=== PATIENT | male | born 1930 | race Caucasian/White ===

== ENCOUNTER → 2017-09-08 | Outpatient (CLI) | payer MEDICARE, OTHER ==
[~2017-09-08] MED LIST: ALBUTEROL0.63 MG/3 PO; AMANTADINE100 MG PO; ASPIR 8181 MG PO; ATORVASTATIN CA10 MG PO; CALCIUM 500+D1 EACH PO; CARDURA4 MG PO; COMTAN200 MG PO; COUMADIN1 MG PO; FUROSEMIDE40 MG PO; K DUR10 MEQ PO; LASIX40 MG PO; LISINOPRIL10 MG PO; NITROGLYCERIN0.4 MG SL; NORCO 5-325 TA1 EACH PO; OXYBUTYNIN CHLOR5 MG PO; PLAVIX75 MG PO; POTASSIUM CHLO10 ME1 PO; SINEMET 25-1001 EACH PO; TAMSULOSIN HCL0.4 MG PO; VIAGRA100 MG PO; WARFARIN SODIUM1 MG PO; XARELTO20 MG PO
--- NOTE | 2017-09-08 15:24 | Diagnostic Imaging Report ---
PROCEDURE:HIP LEFT 2-3 VW (+/- PELVIS) COMPARISON:CT abdomen and pelvis 05/04/2017 INDICATIONS:LEFT HIP PAIN FINDINGS: Normal mineralization. No acute fracture or dislocation. Mild degenerative changes of the left hip and pubic symphysis. Diffuse vascular calcifications. CONCLUSION: Mild degenerative changes of the left hip. No acute osseous abnormalities. Dictated by: Brannon Shay M.D. on 09/08/2017 at 15:33 Electronically approved by: Brannon Shay M.D. on 09/08/2017 at 15:33
== END ==
LOC: RAD 14:03
DX: M25.552 Pain in left hip (principal)

== ENCOUNTER 2018-02-19 00:01 | Emergency (ER) | payer MEDICARE, OTHER ==
[~2018-02-19] VITALS: Ht 175.3 cm; Wt 75.7 kg
== END 2018-02-19 00:38 | disposition home or self-care (01) ==
LOC: ER 00:01
DX: R13.14 Dysphagia, pharyngoesophageal phase (principal); I10 Essential (primary) hypertension; I25.10 Atherosclerotic heart disease of native coronary artery without angina pectoris; J44.9 Chronic obstructive pulmonary disease, unspecified; I50.9 Heart failure, unspecified; Z86.73 Personal history of transient ischemic attack (TIA), and cerebral infarction without residual deficits
CPT/HCPCS: 99282

== ENCOUNTER → 2018-02-24 | Outpatient (CLI) | payer MEDICARE, OTHER ==
--- NOTE | 2018-02-24 13:37 | Diagnostic Imaging Report ---
PROCEDURE: CT ABDOMEN AND PELVIS WITHOUT CONTRAST TECHNIQUE: The abdomen and pelvis were scanned utilizing a multidetector helical scanner from the diaphragm to the lesser trochanter after the oral administration of 450 ml of water. Coronal and sagittal multiplanar reformations were obtained. COMPARISON: CT of the abdomen and pelvis from 05/04/2017 INDICATIONS: MICROSCOPIC HEMATURIA FINDINGS: ABSENCE OF INTRAVENOUS CONTRAST DECREASES SENSITIVITY FOR DETECTION OF FOCAL LESIONS AND VASCULAR PATHOLOGY. LOWER THORAX: Subpleural reticular opacities with interlobular septal thickening and bronchial wall thickening, more conspicuous on the prior examination. There is cardiomegaly with severe coronary artery and aortic root calcifications. HEPATOBILIARY: There are scattered granulomas throughout the liver. No focal suspicious hepatic lesions. The gallbladder is absent. The common bile duct measures up to 0.9 cm, unchanged. SPLEEN: No splenomegaly. Healed granulomas in the spleen. PANCREAS: No focal masses or ductal dilatation. ADRENALS: No adrenal nodules. KIDNEYS/URETERS: No hydronephrosis or solid mass lesions. 3 mm nonobstructing stone in the upper pole of the right kidney (series 3, image 37), 4 mm nonobstructing stone in the lower pole right kidney (image 61) and a 3 mm nonobstructing stone in the upper pole the left kidney (image 32). There appears to be a 6 mm stone in the left distal ureter (series 3, image 108). There is no associated hydronephrosis or hydroureter. PELVIC ORGANS/BLADDER: The prostate gland is mildly enlarged, measuring 5.2 x 3.6 x 5.5 cm. PERITONEUM / RETROPERITONEUM: No free air or fluid. LYMPH NODES: No lymphadenopathy. VESSELS: Moderate atherosclerotic calcification of the aorta and its branches. GI TRACT: No distention or wall thickening. There is a large amount of stool throughout the colon with fecalization of contents in the distal ileum. The appendix is normal. BONES AND SOFT TISSUES: Multilevel spondylosis of the thoracic and lumbar spine. IMPRESSION: 1. Nonobstructing stones in both kidneys, measuring up to 4 mm, unchanged. 2. There also appears to be a 6 mm stone in the left distal ureter without left hydronephrosis or hydroureter. This may have been present on the 05/04/2017 examination, in which case it represents a chronically impacted ureteral stone. 3. Limited views of the lung bases reveal interstitial thickening. This could be due to atypical infection or pulmonary edema. Correlate clinically. 4. Mild enlargement of the prostate. Dictated by: Fili Watson M.D. on 02/24/2018 at 13:42 Electronically approved by: Fili Watson M.D. on 02/24/2018 at 13:42
== END ==
LOC: CT 11:18
PROVIDERS: ATTEND Urology
DX: R31.21 Asymptomatic microscopic hematuria (principal)
CPT/HCPCS: 74176

== ENCOUNTER 2018-03-16 07:33 | Inpatient (IN) | payer MEDICARE, OTHER ==
[~2018-03-16] VITALS: Ht 175.3 cm; Wt 73.9 kg
[2018-03-16] MEDS ORDERED: ASPIRIN 81 MG CHEW TAB PO ONE ×2 (07:45→08:30)
[2018-03-16 07:58] LABS: BASOPHILS # (AUTO) 0.1 (0.0-0.1); BASOPHILS % 1.3 % (0.0-1.0); EOSINOPHILS # (AUTO) 1.1 (0.0-0.4); EOSINOPHILS % 14.4 % (0.0-6.0); HEMATOCRIT 40.7 % (38.2-49.6); HEMOGLOBIN 13.6 g/dL (14.0-18.0); LYMPHOCYTES % 12.3 % (18.0-39.1); MEAN CORPUSCULAR HEMOGLOBIN 31.2 pg (28-32); MEAN CORPUSCULAR HGB CONC 33.4 g/dL (31-35); MEAN CORPUSCULAR VOLUME 93.3 fL (81-99); MONOCYTES # (AUTO) 1.1 (0.2-0.8); MONOCYTES % 13.9 % (4.4-11.3); NEUTROPHILS # (AUTO) 4.5 (2.1-6.9); NEUTROPHILS % 57.8 % (38.7-80.0); PLATELET COUNT 160 x10e3/uL (140-360); RED BLOOD COUNT 4.36 x10e6/uL (4.3-5.7)
--- NOTE | 2018-03-16 08:05 | Diagnostic Imaging Report ---
PROCEDURE: CHEST SINGLE (PORTABLE) COMPARISON: Patients [facility], DX, CHEST SINGLE (PORTABLE), 01/06/2017, 5:33. INDICATIONS: CHEST PAIN FINDINGS: LUNGS: Increased interstitial markings are unchanged representing either fibrosis or edema. PLEURA: No effusions or pneumothorax. HEART \T\ MEDIASTINUM: The heart is mildly enlarged. BONES \T\ SOFT TISSUES: No acute findings. CONCLUSION: Cardiomegaly with an increased interstitial process not significantly changed. Baron Gardner D.O. Dictated by: Baron Gardner D.O. on 03/16/2018 at 8:11 Electronically approved by: Baron Gardner D.O. on 03/16/2018 at 8:11
[2018-03-16 08:16] LABS: ALBUMIN 3.7 g/dL (3.5-5.0); ALBUMIN/GLOBULIN RATIO 1.1 (0.8-2.0); ANION GAP 12.7 mmol/L (8-16); CALCIUM 9.4 mg/dL (8.4-10.2); CREATININE, SERUM 1.32 mg/dL (0.72-1.25); POTASSIUM 3.7 mmol/L (3.5-5.1)
[2018-03-16 08:22] LABS: CREATINE KINASE MB 1.6 ng/mL (0-5.0)
[2018-03-16 08:43] LABS: BILIRUBIN,URINE NEGATIVE (NEGATIVE); CLARITY,URINE CLEAR (CLEAR); COLOR,URINE YELLOW (YELLOW); KETONES,URINE NEGATIVE (NEGATIVE); LEUKOCYTE ESTERASE ,URINE NEGATIVE (NEGATIVE); NITRITE,URINE NEGATIVE (NEGATIVE); PROTEIN,URINE DIPSTICK NEGATIVE (NEGATIVE); URINE UROBILINOGEN 0.2 mg/dL (0.2 - 1)
[2018-03-16 08:57] LABS: BACTERIA,URINE RARE /HPF; EPITHELIAL CELLS,URINE RARE /LPF; WBC,URINE (MAN) 0-5 /HPF (0-5)
[2018-03-16] MEDS ORDERED: KLOR-CON 1010 MEQ PO (09:05)
[2018-03-16 10:22] VITALS: BP 139/84
[2018-03-16 10:25] VITALS: BP 139/84
[2018-03-16 10:49] VITALS: BP 139/84
[2018-03-16] MEDS ORDERED: NITROGLYCERIN 0.4 MG SUBL SL PRN (14:30)
[2018-03-16 15:47] VITALS: BP 145/99
--- NOTE | 2018-03-16 16:44 | Consultation ---
DATE OF CONSULTATION: March 16, 2018 CARDIOLOGY CONSULTATION CHIEF COMPLAINT: Chest pain and epigastric discomfort. HISTORY OF PRESENT ILLNESS: Mr. Monroe is a very pleasant 87-year-old man with history of Parkinson's disease, chronic severe systolic heart failure with improvement in ejection fraction in the past, as well as with COPD, who presents to [facility] via the emergency department with complaints of chest and epigastric discomfort, worse with deep inspiration and cough. He also carries a diagnosis of chronic kidney disease, atrial fibrillation on Xarelto, and coronary artery disease with a history of prior stents. He denies any worsening edema or lightheadedness or syncope. He does report occasional palpitations. REVIEW OF SYSTEMS: Twelve system review negative except for as noted above. ALLERGIES: NO KNOWN DRUG ALLERGIES PAST MEDICAL HISTORY: Significant for COPD, Parkinson's disease, CKD, chronic systolic heart failure, CAD with prior stents, hypertension, paroxysmal atrial fibrillation. SURGICAL HISTORY: Significant for stents. SOCIAL HISTORY: Denies smoking, alcohol or drugs. FAMILY HISTORY: Noncontributory. PHYSICAL EXAMINATION: VITALS: Temperature 96.2, heart rate 95, respiratory rate 20, blood pressure 145/99, O2 sat 97% on room air. GENERAL: No acute distress. Alert. NECK: No JVD. CHEST: With occasional rhonchi, otherwise clear to auscultation. CARDIOVASCULAR: Irregularly irregular rate and rhythm. Normal S1 and S2. No S3 or S4. Systolic ejection murmur 1/6. ABDOMEN: Soft, nontender. EXTREMITIES: Trace edema. Warm distal extremities. CARDIOVASCULAR MEDICATIONS: Atorvastatin 80 mg nightly, Lovenox 70 mg subcutaneous daily, carvedilol 3.125 mg b.i.d., losartan 25 mg daily, tamsulosin 0.4 mg daily, furosemide 80 mg p.o. daily, and aspirin 81 mg daily. Was on Xarelto, which has been put on hold. STUDIES: White blood cells 7.7, hemoglobin 13.6, platelets 160. Sodium 140, potassium 3.7, chloride 103, bicarbonate 28, BUN 19, creatinine 1.3, glucose 99, calcium 9.4. Total bilirubin is 1.4, AST 18, ALT 7, alk phos 118. CK 39, CK-MB 1.6, troponin I 0.020. Total protein 7.2, albumin 3.7. Severe impairment in left ventricular systolic function with a left ventricular ejection fraction of 20% to 25% on echocardiogram reviewed today. ASSESSMENT: 1. Atypical chest pain. 2. Chronic severe systolic heart failure now ongoing for many years with worsening ventricular systolic function. 3. Chronic kidney disease. 4. Chronic obstructive pulmonary disease. 5. Coronary artery disease with prior stents. 6. Atrial fibrillation, previous Xarelto now on hold. 7. Hypertension, dyslipidemia and Parkinson's disease. RECOMMENDATIONS: 1. Hold Xarelto. 2. Bridge with Lovenox. 3. Beta salvador and ARB. 4. Diuretics. 5. Aspirin. 6. Serial cardiac enzymes. 7. Will need coronary angiography and possible intervention given Xarelto given recently. Plan on likely early next week. Depending on results, will consider AICD. Job#: [id number] DANYEL
[2018-03-16] MEDS: CARBIDOPA/LEVODOPA 25/100 TAB PO SCH ×2 (17:36→20:20)
[2018-03-16] MEDS: CARVEDILOL 3.125 MG TAB PO SCH (17:36)
[2018-03-16 17:45] LABS: CREATINE KINASE MB 1.4 ng/mL (0-5.0)
[2018-03-16 20:15] VITALS: BP 129/99
[2018-03-16] MEDS: ATORVASTATIN 40 MG TAB PO SCH (20:20)
[2018-03-16] MEDS ORDERED: ATORVASTATIN 10 MG TAB PO SCH (21:00)
[2018-03-16 23:40] VITALS: BP 130/92
[2018-03-17] VITALS: BP 130/92
[2018-03-17 05:04] LABS: CHOL/HDL RATIO 1.7 (3.9-4.7)
[2018-03-17 05:10] VITALS: BP 149/98
[2018-03-17 05:34] LABS: CREATINE KINASE MB 1.2 ng/mL (0-5.0)
[2018-03-17 08:00] VITALS: BP 167/86
[2018-03-17 08:15] VITALS: BP 167/86
[2018-03-17] MEDS: LOSARTAN POTASSIUM 25 MG TAB PO SCH (08:54)
[2018-03-17] MEDS: ASPIRIN 81 MG CHEW TAB PO SCH (08:54)
[2018-03-17] MEDS: CARBIDOPA/LEVODOPA 25/100 TAB PO SCH ×4 (08:54→21:30)
[2018-03-17] MEDS: TAMSULOSIN HCL 0.4 MG CAP PO SCH (08:54)
[2018-03-17] MEDS: OXYBUTYNIN CHLORIDE 5 MG TAB PO SCH (08:54)
[2018-03-17] MEDS: CARVEDILOL 3.125 MG TAB PO SCH ×2 (08:54→17:08)
[2018-03-17] MEDS: ENOXAPARIN INJ 80 MG/0.8 ML SYR SC SCH (08:55)
[2018-03-17] MEDS: AMANTADINE HCL 100 MG CAP PO SCH (08:55)
[2018-03-17] MEDS ORDERED: FUROSEMIDE 40 MG TAB PO SCH (09:00)
[2018-03-17 12:00] VITALS: BP 136/74
--- NOTE | 2018-03-17 14:03 | Progress Note ---
DATE: March 17, 2018 CARDIOLOGY PROGRESS NOTE SUBJECTIVE: No complaints today. OBJECTIVE VITAL SIGNS: Reviewed and stable. GENERAL: No acute distress. Alert. CHEST: With scattered rhonchi. CARDIOVASCULAR: Irregular rate and rhythm. Normal S1 and S2. ABDOMEN: Soft. EXTREMITIES: Trace edema. STUDIES: Reviewed. MEDICATIONS: Reviewed. ASSESSMENT 1. Voqux-jh-tudghnq severe systolic heart failure. 2. Coronary artery disease with prior stent. 3. Atypical chest pain with pleuritic features. 4. Dysphagia and aspiration, followed by Dr. Huffman. 5. Chronic kidney disease. 6. Parkinson's. RECOMMENDATIONS: Off Xarelto for his atrial fibrillation in preparation for coronary angiography. Will plan likely Tuesday a.m. as cath schedule allows. Lovenox bridge in the meantime. If no significant disease to explain severe systolic heart failure, will proceed with EP consultation for ICD. Job#: [id number] EV
[2018-03-17 16:00] VITALS: BP 128/89
[2018-03-17] MEDS: ATORVASTATIN 40 MG TAB PO SCH (21:30)
[2018-03-18] VITALS (9 sets, daily range): BP systolic 111–167; BP diastolic 69–100
[2018-03-18] MEDS: FUROSEMIDE INJ 10 MG/ML 4 ML VIAL IV SCH (08:42)
[2018-03-18] MEDS: CARBIDOPA/LEVODOPA 25/100 TAB PO SCH ×3 (08:42→17:45)
[2018-03-18] MEDS: CARVEDILOL 3.125 MG TAB PO SCH ×2 (08:42→16:50)
[2018-03-18] MEDS: LOSARTAN POTASSIUM 25 MG TAB PO SCH (08:42)
[2018-03-18] MEDS: OXYBUTYNIN CHLORIDE 5 MG TAB PO SCH (08:42)
[2018-03-18] MEDS: TAMSULOSIN HCL 0.4 MG CAP PO SCH (08:42)
[2018-03-18] MEDS: ASPIRIN 81 MG CHEW TAB PO SCH (08:42)
[2018-03-18] MEDS: AMANTADINE HCL 100 MG CAP PO SCH (08:42)
[2018-03-18] MEDS: ENOXAPARIN INJ 80 MG/0.8 ML SYR SC SCH (08:44)
[2018-03-18 13:49] LABS: BASOPHILS # (AUTO) 0.1 (0.0-0.1); BASOPHILS % 1.5 % (0.0-1.0); EOSINOPHILS # (AUTO) 0.6 (0.0-0.4); EOSINOPHILS % 7.6 % (0.0-6.0); HEMATOCRIT 45.7 % (38.2-49.6); HEMOGLOBIN 15.2 g/dL (14.0-18.0); LYMPHOCYTES % 13.4 % (18.0-39.1); MEAN CORPUSCULAR HEMOGLOBIN 30.9 pg (28-32); MEAN CORPUSCULAR HGB CONC 33.3 g/dL (31-35); MEAN CORPUSCULAR VOLUME 92.9 fL (81-99); MONOCYTES # (AUTO) 1.2 (0.2-0.8); MONOCYTES % 16.1 % (4.4-11.3); NEUTROPHILS # (AUTO) 4.5 (2.1-6.9); NEUTROPHILS % 61.3 % (38.7-80.0); PLATELET COUNT 196 x10e3/uL (140-360); RED BLOOD COUNT 4.92 x10e6/uL (4.3-5.7); RED CELL DISTRIBUTION WIDTH 14.9 % (11.7-14.4)
[2018-03-18 13:59] LABS: CALCIUM 9.5 mg/dL (8.4-10.2); CREATININE, SERUM 1.49 mg/dL (0.72-1.25)
--- NOTE | 2018-03-18 19:18 | Diagnostic Imaging Report ---
EXAMINATION: CHEST 2 VIEWS INDICATION: \S\CHF \S\[id number] \S\1840 \S\Y COMPARISON: Chest radiograph 03/16/2018 FINDINGS: PA and lateral views TUBES and LINES: None. LUNGS: Lungs are well inflated. Lungs are clear. There is no evidence of pneumonia or pulmonary edema. PLEURA: No pleural effusion or pneumothorax. HEART AND MEDIASTINUM: Stable mild enlargement of the cardiac silhouette. Aortic arch calcifications. Tortuous aorta. BONES AND SOFT TISSUES: No acute osseous lesion. Soft tissues are unremarkable. UPPER ABDOMEN: No free air under the diaphragm. Enteric contrast in the splenic flexure. IMPRESSION: No acute thoracic abnormality. Signed by: DR. Brannon Shay MD on 03/18/2018 7:15 PM
--- NOTE | 2018-03-18 20:29 | Progress Note ---
DATE: March 18, 2018 CARDIOLOGY PROGRESS NOTE SUBJECTIVE: No new complaints other than epigastric and lower sternal chest discomfort. OBJECTIVE VITAL SIGNS: Temperature 96.1. Heart rate 71. Respiratory rate 18. Blood pressure 111/74. O2 sat 97% on room air. GENERAL: No acute distress. Alert. NECK: No JVD. CHEST: Clear to auscultation. CARDIOVASCULAR: Regular rate and rhythm. Normal S1 and S2. ABDOMEN: Soft, nontender. EXTREMITIES: No edema. CARDIOVASCULAR MEDICATIONS 1. Carvedilol 3.125 mg b.i.d. 2. Lovenox 70 mg subcutaneous daily. 3. Furosemide 80 mg IV daily. 4. Aspirin 81 mg daily. 5. Atorvastatin 80 mg nightly. STUDIES: White blood cell 7.2, hemoglobin 15.2, platelets 196,000. Creatinine 1.49, sodium 138, potassium 4, chloride 98, bicarbonate 30, glucose 99. TELEMETRY: Atrial fibrillation with controlled ventricular response. ASSESSMENT 1. Osdiu-me-nibgths severe systolic heart failure. 2. Coronary artery disease with prior stents. 3. Atypical chest pain with pleuritic feature. 4. Dysphagia and aspiration, being followed by Dr. Yoandy Huffman. 5. Chronic kidney disease. 6. Parkinson disease. RECOMMENDATIONS 1. Continue hold Xarelto. 2. Possible coronary angiography early next week. 3. Hold evening Lovenox on Tuesday. 4. Monitor renal function and hydration overnight starting Tuesday. 5. EP consultation if no significant coronary artery disease to explain level of heart failure. Job#: [id number] CQ
[2018-03-18] MEDS: ATORVASTATIN 40 MG TAB PO SCH (21:04)
[2018-03-19] VITALS (8 sets, daily range): BP systolic 115–137; BP diastolic 63–88
[2018-03-19 05:35] LABS: ANION GAP 12.6 mmol/L (8-16); CREATININE, SERUM 1.26 mg/dL (0.72-1.25); POTASSIUM 3.6 mmol/L (3.5-5.1)
[2018-03-19 06:40] LABS: BASOPHILS # (AUTO) 0.1 (0.0-0.1); BASOPHILS % 1.4 % (0.0-1.0); EOSINOPHILS # (AUTO) 0.8 (0.0-0.4); EOSINOPHILS % 11.7 % (0.0-6.0); HEMATOCRIT 41.8 % (38.2-49.6); HEMOGLOBIN 14.1 g/dL (14.0-18.0); LYMPHOCYTES # (AUTO) 1.3 (1.0-3.2); LYMPHOCYTES % 17.9 % (18.0-39.1); MEAN CORPUSCULAR HEMOGLOBIN 30.9 pg (28-32); MEAN CORPUSCULAR HGB CONC 33.7 g/dL (31-35); MEAN CORPUSCULAR VOLUME 91.5 fL (81-99); MONOCYTES # (AUTO) 1.3 (0.2-0.8); MONOCYTES % 18.1 % (4.4-11.3); NEUTROPHILS # (AUTO) 3.6 (2.1-6.9); NEUTROPHILS % 50.5 % (38.7-80.0); PLATELET COUNT 176 x10e3/uL (140-360); RED BLOOD COUNT 4.57 x10e6/uL (4.3-5.7); RED CELL DISTRIBUTION WIDTH 14.8 % (11.7-14.4)
[2018-03-19] MEDS: CARBIDOPA/LEVODOPA 25/100 TAB PO SCH ×5 (09:00→21:04)
[2018-03-19] MEDS: ASPIRIN 81 MG CHEW TAB PO SCH (09:04)
[2018-03-19] MEDS: FUROSEMIDE INJ 10 MG/ML 4 ML VIAL IV SCH (09:04)
[2018-03-19] MEDS: AMANTADINE HCL 100 MG CAP PO SCH (09:05)
[2018-03-19] MEDS: LOSARTAN POTASSIUM 25 MG TAB PO SCH (09:05)
[2018-03-19] MEDS: CARVEDILOL 3.125 MG TAB PO SCH ×2 (09:05→16:32)
[2018-03-19] MEDS: TAMSULOSIN HCL 0.4 MG CAP PO SCH (09:05)
[2018-03-19] MEDS: OXYBUTYNIN CHLORIDE 5 MG TAB PO SCH (09:05)
--- NOTE | 2018-03-19 11:19 | Progress Note ---
DATE: March 19, 2018 CARDIOLOGY PROGRESS NOTE SUBJECTIVE: No complaints. OBJECTIVE VITAL SIGNS: Temperature 96 degrees, blood pressure 129/67, heart rate 83, respiratory rate 20, O2 sat 98%. GENERAL: In no acute distress, alert. NECK: No JVD. CHEST: Clear to auscultation. CARDIOVASCULAR: Irregularly irregular rate and rhythm with normal S1 and S2. No S3 or S4. ABDOMEN: Soft. EXTREMITIES: No edema. CARDIOVASCULAR MEDICATIONS: 1. Atorvastatin. 2. Coreg. 3. Losartan. 4. Furosemide. 5. Aspirin. 6. Lovenox. ASSESSMENT: 1. Pkuhy-xd-sqfgyxw severe systolic heart failure. 2. Coronary artery disease with previous stent. 3. Chronic obstructive pulmonary disease. 4. Angina pectoris. 5. Hypertension. 6. Dyslipidemia. RECOMMENDATIONS: Continue current cardiovascular medications with the following changes: Discontinue Lovenox, hold furosemide in preparation for coronary angiography and possible coronary intervention starting tomorrow. Indications, alternatives, risks and benefits have been discussed with the patient who voices understanding and agreement. Job#: [id number]
[2018-03-19] MEDS ORDERED: ACETAMINOPHEN 325 MG TAB PO PRN (12:00)
[2018-03-19] MEDS: HYDROCODONE/APAP 5MG-325MG TAB PO PRN ×2 (16:32→22:59)
[2018-03-19] MEDS: ATORVASTATIN 40 MG TAB PO SCH (21:04)
[2018-03-20] VITALS (16 sets, daily range): BP systolic 97–128; BP diastolic 53–99
[2018-03-20 05:39] LABS: BASOPHILS # (AUTO) 0.1 (0.0-0.1); BASOPHILS % 0.8 % (0.0-1.0); EOSINOPHILS # (AUTO) 0.4 (0.0-0.4); EOSINOPHILS % 5.1 % (0.0-6.0); HEMATOCRIT 43.2 % (38.2-49.6); HEMOGLOBIN 14.6 g/dL (14.0-18.0); LYMPHOCYTES # (AUTO) 1.3 (1.0-3.2); LYMPHOCYTES % 14.4 % (18.0-39.1); MEAN CORPUSCULAR HEMOGLOBIN 30.7 pg (28-32); MEAN CORPUSCULAR HGB CONC 33.8 g/dL (31-35); MEAN CORPUSCULAR VOLUME 90.9 fL (81-99); MONOCYTES # (AUTO) 1.5 (0.2-0.8); MONOCYTES % 17.4 % (4.4-11.3); NEUTROPHILS # (AUTO) 5.4 (2.1-6.9); NEUTROPHILS % 62.1 % (38.7-80.0); PLATELET COUNT 175 x10e3/uL (140-360); RED BLOOD COUNT 4.75 x10e6/uL (4.3-5.7); RED CELL DISTRIBUTION WIDTH 14.8 % (11.7-14.4)
[2018-03-20 05:48] LABS: INR 1.19; PROTHROMBIN TIME 14.2 seconds (11.9-14.5)
[2018-03-20 05:56] LABS: ANION GAP 12.6 mmol/L (8-16); CREATININE, SERUM 1.29 mg/dL (0.72-1.25); POTASSIUM 3.6 mmol/L (3.5-5.1)
[2018-03-20] MEDS ORDERED: HEPARIN SOD (PORCINE) 1000 UNIT/ML 30ML ONE (06:43)
[2018-03-20] MEDS ORDERED: MIDAZOLAM HCL 2 MG/2 ML VIAL ONE (06:44)
[2018-03-20] MEDS ORDERED: FENTANYL CITRATE/PF 100MCG/2 ML INJ ONE (06:44)
[2018-03-20] MEDS ORDERED: IOPAMIDOL 370 MG/ML 200 ML INFUS..BTL INJ ONE (06:44)
[2018-03-20] MEDS ORDERED: HEPARIN SOD/SOD CHLORIDE 2,000 ML ONE (06:44)
[2018-03-20] MEDS ORDERED: LIDOCAINE HCL 2% LOCAL 20 ML VIAL ONE (06:44)
[2018-03-20] MEDS ORDERED: SODIUM CHLORIDE 0.9% 1000ML 1,000 ML ONE (06:45)
[2018-03-20] MEDS ORDERED: NITROGLYCERIN/D5W 200 MCG/ML 250 ML ONE (06:45)
[2018-03-20] MEDS ORDERED: VERAPAMIL HCL 2.5 MG/ML 2 ML VIAL ONE (07:23)
[2018-03-20] MEDS: CARBIDOPA/LEVODOPA 25/100 TAB PO SCH ×4 (09:00→20:22)
--- NOTE | 2018-03-20 09:06 | Progress Note ---
DATE: March 20, 2018 CARDIOLOGY PROGRESS NOTE SUBJECTIVE: No complaints today. OBJECTIVE VITALS: Temperature 98 degrees, heart rate 70, respiratory rate 16, blood pressure 110/87, O2 sat 95% on room air. GENERAL: In no acute distress. Alert. NECK: No JVD. CHEST: Clear to auscultation. CARDIOVASCULAR: Irregularly irregular rate and rhythm. Normal S1 and S2. No S3 or S4. Systolic ejection murmur 1/6. ABDOMEN: Soft. EXTREMITIES: No edema. Warm distal extremities. CARDIOVASCULAR MEDICATIONS: Reviewed. 1. Atorvastatin 80 mg at bedtime. 2. Carvedilol 3.125 mg every 12 hours. 3. Losartan 25 mg daily. 4. Aspirin 81 mg daily. 5. Nitroglycerin p.r.n. STUDIES: White blood cells 8.6, hemoglobin 14.6, and platelets 175,000. INR 1.1. Creatinine is 1.29. Telemetry is AFib with controlled ventricular response. ASSESSMENT 1. Ohztd-zk-mqgqjrb severe systolic heart failure. 2. Coronary artery disease with prior stents and angina pectoris. 3. Chronic obstructive pulmonary disease. 4. Hypertension. 5. Dyslipidemia. RECOMMENDATIONS: Angiogram performed today has very heavily calcified coronary arteries. Patent RCA stents and an ostial RCA lesion. There is 60% to 70% stenosis and heavily eccentric calcified. LAD has mild disease with diagonal with moderate disease. Circumflex has luminal irregularities and so does the left main. At this point, it is considered at level of cardiomyopathy out of proportion to level of CAD. It would be in the patient's best interest to proceed with a defibrillator. EP consult will be initiated. Continue medical optimization as outpatient. Will further evaluate response to medical therapy from a CAD standpoint. Further recommendations will follow. Job#: [id number] OK
[2018-03-20] MEDS: ASPIRIN 81 MG CHEW TAB PO SCH (11:22)
[2018-03-20] MEDS: LOSARTAN POTASSIUM 25 MG TAB PO SCH (11:23)
[2018-03-20] MEDS: AMANTADINE HCL 100 MG CAP PO SCH (11:23)
[2018-03-20] MEDS: OXYBUTYNIN CHLORIDE 5 MG TAB PO SCH (11:23)
[2018-03-20] MEDS: CARVEDILOL 3.125 MG TAB PO SCH ×2 (11:23→15:59)
[2018-03-20] MEDS: TAMSULOSIN HCL 0.4 MG CAP PO SCH (11:23)
[2018-03-20] MEDS: HYDROCODONE/APAP 5MG-325MG TAB PO PRN (11:24)
[2018-03-20] MEDS: ATORVASTATIN 40 MG TAB PO SCH (20:22)
[2018-03-21] VITALS (9 sets, daily range): BP systolic 94–170; BP diastolic 57–97
[2018-03-21] MEDS: CARBIDOPA/LEVODOPA 25/100 TAB PO SCH ×5 (09:00→20:57)
[2018-03-21] MEDS: CARVEDILOL 3.125 MG TAB PO SCH ×2 (09:00→17:00)
[2018-03-21] MEDS: ASPIRIN 81 MG CHEW TAB PO SCH (12:25)
[2018-03-21] MEDS: AMANTADINE HCL 100 MG CAP PO SCH (12:26)
[2018-03-21] MEDS: OXYBUTYNIN CHLORIDE 5 MG TAB PO SCH (12:26)
[2018-03-21] MEDS: LOSARTAN POTASSIUM 25 MG TAB PO SCH (12:26)
[2018-03-21] MEDS: TAMSULOSIN HCL 0.4 MG CAP PO SCH (12:26)
[2018-03-21] MEDS: ATORVASTATIN 40 MG TAB PO SCH (20:57)
--- NOTE | 2018-03-21 22:49 | Consultation ---
DATE OF CONSULTATION: March 21, 2018 REFERRING PHYSICIAN: Dr. Chanel REASON FOR CONSULT: Cardiomyopathy. 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 He underwent heart catheterization by Dr. Chanel, and found to have coronary artery disease. No indication for intervention at this time. We were consulted to consider defibrillator. The patient denies syncope. Denies cardiac arrest. REVIEW OF SYSTEMS CONSTITUTIONAL: Negative. CARDIOVASCULAR: See HPI. RESPIRATORY: Negative. GASTROINTESTINAL: Negative. GENITOURINARY: Negative. MUSCULOSKELETAL: Negative. HEENT: Eyes negative. ENT negative. ALLERGY/IMMUNOLOGY: Negative. PSYCHIATRIC: Negative. PAST MEDICAL HISTORY: Hypertension and cardiomyopathy as above. PAST SURGICAL HISTORY: Negative. FAMILY HISTORY: No premature coronary artery disease. SOCIAL HISTORY: Denies smoking or alcohol. PHYSICAL EXAMINATION VITALS: Blood pressure 126/60, pulse 70, respirations 20, O2 sat 98%. GENERAL: In no acute distress. HEENT: Moist mucous membranes. CARDIOVASCULAR: Regular. RESPIRATORY: Clear. ABDOMEN: Soft and nontender. MUSCULOSKELETAL: Two plus distal pulses. NEUROLOGICAL: No focal deficit. Normal range of motion of all 4 extremities. PSYCHIATRIC: Normal thought process. SKIN: No lesions. EKG is sinus rhythm. Awaiting repeat EKG from today to assess QRS morphology. IMPRESSION 1. 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 2. Congestive heart failure, class III. 3. Coronary artery disease: No indication for intervention at this time. RECOMMENDATIONS: Discussed with the patient in detail. He meets criteria for primary prevention of sudden cardiac . Explained the procedure in detail with benefits and risks. The patient voices understanding and wishes to proceed. Will plan for a cardiac defibrillator implant depending on the EKG to assess QRS morphology. Will go for a single lead ICD versus NET FRONT END DEVELOPER if the QRS is wide. Thank you for letting us participate in Mr. Monroe's healthcare. Job#: [id number] AR
--- NOTE | 2018-03-21 23:38 | Progress Note ---
DATE: March 21, 2018 CARDIOLOGY PROGRESS NOTE SUBJECTIVE: Doing well. No complaints. OBJECTIVE: VITAL SIGNS: Temperature 95.9, heart rate 74, respiratory rate is 18, blood pressure 101/66, O2 sat 98% on room air. GENERAL: In no acute distress, alert. NECK: No JVD. CHEST: Clear to auscultation. CARDIOVASCULAR: Irregularly irregular rate and rhythm. Normal S1 and S2. No S3, no S4. Systolic ejection murmur 1/6. ABDOMEN: Soft and nontender. EXTREMITIES: No edema. Warm distal extremities. CARDIOVASCULAR MEDICATIONS: Reviewed. On atorvastatin 80 mg daily, carvedilol 3.125 mg q.12h., losartan 25 mg daily, aspirin 81 mg daily, nitroglycerin p.r.n. STUDIES: Reviewed. ASSESSMENT: 1. Oqfsf-xm-vnvncwh severe systolic heart failure. 2. Coronary artery disease with prior stents. 3. Chronic obstructive pulmonary disease. 3. Hypertension. 4. Dyslipidemia. RECOMMENDATIONS: heavily calcified coronary arteries, patent RCA stents and ostial RCA lesion. There is 60% to 70% stenosis and heavily calcified eccentric ostial RCA, mild LAD disease and moderate diagonal disease. Circumflex with luminal irregularities, left main with luminal irregularities. EP has been consulted for consideration of ICD placement. Continue current cardiovascular medications. Job#: [id number] DR MAGALLANES
--- NOTE | 2018-03-21 23:45 | Operative Report ---
DATE OF PROCEDURE: March 20, 2018 CARDIAC CATHETERIZATION REPORT PROCEDURE INDICATION: Severe systolic heart failure, twlhc-ig-gcccxwz, with history of longstanding cardiomyopathy, on optimal medical therapy with longstanding severe systolic heart failure, now presenting with chest pain concerning for angina pectoris. PROCEDURES PERFORMED 1. Left heart catheterization. 2. Selective coronary angiography. 3. Right radial TR Band hemostasis. 4. Right common femoral artery Angio-Seal closure. PROCEDURE COMPLICATIONS: None. ESTIMATED BLOOD LOSS: Less than 15 mL. PROCEDURE SUMMARY: After consent was obtained, the patient was prepped and draped in a sterile fashion and the access was obtained using ultrasound guidance using 5-Zimbabwean . A tortuous ectatic aorta was noted limiting adequate cannulation initially which was optimized using JL-5 and JR-4. Angiography revealed luminal irregularities of the left main and LAD of fair thickness with moderate disease of the diagonal. Circumflex with luminal irregularities and the right coronary artery heavily calcified with ostial 60% to 70% stenosis with eccentric calcifications. ASSESSMENT 1. Severe cardiomyopathy, vlcul-px-subzazr severe systolic heart failure. 2. Coronary artery disease with patent right coronary artery stents. 3. Rcckgqsf-pg-tkdfjb stenosis of ostium of right coronary artery. This is an eccentric and heavily calcified lesion, complex anatomy. RECOMMENDATIONS 1. Proceed with implantable cardioverter-defibrillator placement as ventricular systolic function and cardiomyopathy is out of proportion to level of coronary artery disease observed. 2. Optimize medical therapy depending on response. Can consider a later date for revascularization to right coronary artery. This would be considered a high-risk procedure given ostial stenosis. Would be not adequate candidate for CSI atherectomy; however, given heavy calcification, issues with balloon or stent expansion are of concern. Job#: [id number] Honey
[2018-03-22] VITALS (9 sets, daily range): BP systolic 109–141; BP diastolic 64–98
[2018-03-22] MEDS: CARVEDILOL 3.125 MG TAB PO SCH ×2 (09:11→17:56)
[2018-03-22] MEDS: LOSARTAN POTASSIUM 25 MG TAB PO SCH (09:11)
[2018-03-22] MEDS: ASPIRIN 81 MG CHEW TAB PO SCH (09:11)
[2018-03-22] MEDS: OXYBUTYNIN CHLORIDE 5 MG TAB PO SCH (09:11)
[2018-03-22] MEDS: TAMSULOSIN HCL 0.4 MG CAP PO SCH (09:11)
[2018-03-22] MEDS: ATORVASTATIN 40 MG TAB PO SCH (09:13)
[2018-03-22] MEDS: CARBIDOPA/LEVODOPA 25/100 TAB PO SCH ×4 (09:13→20:40)
[2018-03-22] MEDS: AMANTADINE HCL 100 MG CAP PO SCH (09:13)
--- NOTE | 2018-03-22 12:53 | Progress Note ---
DATE: March 22, 2018 CARDIOLOGY PROGRESS NOTE SUBJECTIVE: No complaint. Awaiting n.p.o. for ICD later today. OBJECTIVE VITAL SIGNS: Temperature 96.6, heart rate 73, respiratory rate 16, blood pressure 124/90. GENERAL: In no acute distress. Alert. NECK: No JVD. CHEST: Clear to auscultation. CARDIOVASCULAR: Regular rate and rhythm. Normal S1, S2. No S3. No S4. No murmurs. No rubs. ABDOMEN: Soft and nontender. EXTREMITIES: No edema. CARDIOVASCULAR MEDICATIONS: Reviewed. STUDIES: Reviewed, none for today. ASSESSMENTS 1. Severe axtfx-zw-osrtord systolic heart failure. 2. Coronary artery disease with heavily calcified eccentric right coronary artery ostial lesion. 3. Cardiomyopathy out of proportion to level of coronary artery disease. 4. Parkinson disease. 5. Atrial fibrillation. 6. Hypertension. 7. Dyslipidemia. RECOMMENDATIONS: Proceed with ICD. Continue current cardiovascular medications and plan for resuming anticoagulation with Eliquis post ICD. Job#: [id number] ALYSA
[2018-03-22] MEDS ORDERED: MIDAZOLAM HCL 2 MG/2 ML VIAL ONE (13:18)
[2018-03-22] MEDS ORDERED: SODIUM CHLORIDE 0.9% 500ML 500 ML ONE (13:19)
[2018-03-22] MEDS ORDERED: SODIUM CHLORIDE 0.9% 1000ML 2,000 ML ONE (13:19)
[2018-03-22] MEDS ORDERED: FENTANYL CITRATE/PF 100MCG/2 ML INJ ONE (13:19)
[2018-03-22] MEDS ORDERED: LIDOCAINE HCL 2% LOCAL 20 ML VIAL ONE (13:19)
[2018-03-22] MEDS ORDERED: BACITRACIN 50,000 UNIT VIAL ONE (13:19)
[2018-03-22] MEDS ORDERED: VANCOMYCIN 1GM/NS 250 ML 250 ML ONE (13:59)
[2018-03-22] MEDS ORDERED: ACETAMINOPHEN/CODEINE 300MG - 30MG TAB PO PRN (16:45)
--- NOTE | 2018-03-22 18:09 | Diagnostic Imaging Report ---
PROCEDURE: CHEST SINGLE (PORTABLE) COMPARISON: Patients [facility], DX, CHEST 2 VIEWS, 03/18/2018, 18:25. INDICATIONS: POST PACEMAKER SURGERY FINDINGS: LUNGS: No consolidations or edema. PLEURA: No effusions or pneumothorax. HEART \T\ MEDIASTINUM: AICD lead terminates in the right ventricle. There is a left chest wall. The heart is within normal size-limits. Stable aortic ectasia and arch calcifications. BONES \T\ SOFT TISSUES: No acute findings. Enteric contrast in the splenic flexure of the colon has diminished. CONCLUSION: AICD as described above. No pneumothorax. No new cardiopulmonary process. Dictated by: Michelle Barnes M.D. on 03/22/2018 at 18:15 Electronically approved by: Michelle Barnes M.D. on 03/22/2018 at 18:15
[2018-03-23] VITALS (8 sets, daily range): BP systolic 107–141; BP diastolic 73–98
[2018-03-23] MEDS: ASPIRIN 81 MG CHEW TAB PO SCH (09:38)
[2018-03-23] MEDS: CARVEDILOL 3.125 MG TAB PO SCH ×2 (09:39→18:34)
[2018-03-23] MEDS: TAMSULOSIN HCL 0.4 MG CAP PO SCH (09:39)
[2018-03-23] MEDS: LOSARTAN POTASSIUM 25 MG TAB PO SCH (09:39)
[2018-03-23] MEDS: AMANTADINE HCL 100 MG CAP PO SCH (09:39)
[2018-03-23] MEDS: OXYBUTYNIN CHLORIDE 5 MG TAB PO SCH (09:39)
[2018-03-23] MEDS: CARBIDOPA/LEVODOPA 25/100 TAB PO SCH ×4 (09:39→21:08)
--- NOTE | 2018-03-23 16:21 | Operative Report ---
DATE OF PROCEDURE: March 22, 2018 PREOPERATIVE DIAGNOSES 1. Chronic, nonischemic dilated cardiomyopathy. Ejection fraction 25%. 2. Atrial fibrillation. 3. Congestive heart failure, Class III, refractory to medical therapy. POSTOPERATIVE DIAGNOSES 1. Chronic, nonischemic dilated cardiomyopathy. Ejection fraction 25%. 2. Atrial fibrillation. 3. Congestive heart failure, Class III, refractory to medical therapy. ESTIMATED BLOOD LOSS: 5 mL. COMPLICATIONS: None. PROCEDURES PERFORMED 1. Single-chamber cardiac defibrillator implant. 2. Moderate sedation. Moderate conscious sedation was provided under my direct supervision by sedation-trained nurse. Sedation approximate time 30 minutes, Versed and Fentanyl. There were no complications. See report for details. DESCRIPTION OF PROCEDURE: After informed consent was obtained, patient was brought to the electrophysiology laboratory in a fasting, nonsedated state. Area over his chest was prepped and draped in the usual sterile fashion. Moderate sedation and prophylactic antibiotics were given, 1% lidocaine was used as local anesthetic, and a 3-cm skin incision was made in the left subclavicular area. Electrocautery, sharp, and blunt dissection were used to reach the muscular fascia and a pocket was created for eventual implantation of the device. Vascular access was obtained times 1 in the left axillary vein using a modified Seldinger technique under fluoroscopy guidance. A 9-Persian sheath was placed. The ventricular lead advanced to the RV apex. R-wave 17, pacing 0.5 at 0.4, impedance 580. Sheath was removed from the body. The lead was secured to the fascia using 0 silk. The pocket was irrigated with antibiotic solution using a pulse animated cartoons painter. Hemostasis was meticulous. Lead was connected to the device. The entire ICD system placed in the pocket. Incision was closed using Vicryl and Dermabond. Patient tolerated the procedure well. Procedure was deemed complete. SUMMARY OF HARDWARE IMPLANTED 1. New defibrillator is [employer], model #D020, [id number]. 2. The ventricular lead is [employer], model#0292, [id number]. IMPRESSION: Successful single-chamber cardiac defibrillator implant via left axillary vein. PLAN 1. Routine postop monitoring in telemetry bed. 2. Chest x-ray. 3. Follow up in 2 weeks. Job#: [id number]
[2018-03-23] MEDS ORDERED: RIVAROXABAN 20 MG TABLET PO SCH (17:00)
[2018-03-23] MEDS: ATORVASTATIN 40 MG TAB PO SCH (21:08)
[2018-03-24] VITALS: BP 114/72
--- NOTE | 2018-03-24 01:55 | Progress Note ---
DATE: March 23, 2018 CARDIOLOGY PROGRESS NOTE SUBJECTIVE: No complaints today, status post ICD. OBJECTIVE: VITAL SIGNS: Temperature 96.5, heart rate 72, respiratory rate 18, blood pressure 107/73. GENERAL: In no acute distress, alert. NECK: No JVD. CHEST: Clear to auscultation. CARDIOVASCULAR: Irregular rate and rhythm. Normal S1 and S2. Systolic ejection murmur 1/6. No S3, no S4. ABDOMEN: Soft. EXTREMITIES: Trace edema. CARDIOVASCULAR MEDICATIONS: Reviewed. On Xarelto, Coreg, losartan, aspirin, atorvastatin. STUDIES: Reviewed. Sodium 136, potassium 3.9, chloride 103, bicarbonate 23, creatinine 1.16, glucose 178. ASSESSMENT: 1. Atrial fibrillation. 2. Wxyah-uy-pejvljj severe systolic heart failure. 3. Coronary artery disease with ostial right coronary artery 60% to 70% heavily calcified coronary artery. 4. Hypertension. 5. Dyslipidemia. RECOMMENDATIONS: Status post ICD placement, site looks well. Anticipate discharge later this evening. Okay to continue current cardiovascular medications. Advise on followup with electrophysiology within the next few weeks and with cardiology within the following 4 weeks. Job#: [id number] DR MAGALLANES
[2018-03-24 04:00] VITALS: BP 143/91
[2018-03-24 08:00] VITALS: BP 130/94
[2018-03-24] MEDS: CARVEDILOL 3.125 MG TAB PO SCH (08:50)
[2018-03-24] MEDS: ASPIRIN 81 MG CHEW TAB PO SCH (08:50)
[2018-03-24] MEDS: TAMSULOSIN HCL 0.4 MG CAP PO SCH (08:51)
[2018-03-24] MEDS: OXYBUTYNIN CHLORIDE 5 MG TAB PO SCH (08:51)
[2018-03-24] MEDS: AMANTADINE HCL 100 MG CAP PO SCH (08:51)
[2018-03-24] MEDS: LOSARTAN POTASSIUM 25 MG TAB PO SCH (08:51)
[2018-03-24] MEDS: CARBIDOPA/LEVODOPA 25/100 TAB PO SCH ×2 (08:51→13:00)
[2018-03-24 12:00] VITALS: BP 132/81
--- NOTE | 2018-03-24 21:00 | Progress Note ---
DATE: March 24, 2018 CARDIOLOGY PROGRESS NOTE SUBJECTIVE: No complaints today. Status post ICD, recovering well. Anticoagulation resumed. OBJECTIVE: VITAL SIGNS: Reviewed and stable. GENERAL: In no acute distress, alert. NECK: No JVD. CHEST: Clear to auscultation. CARDIOVASCULAR: Irregularly irregular rate and rhythm. Normal S1 and S2. Systolic ejection murmur /6. ABDOMEN: Soft and nontender. EXTREMITIES: No edema. CARDIOVASCULAR MEDICATIONS: Reviewed. STUDIES: Reviewed. ASSESSMENT: 1. Atrial fibrillation. 2. Vjduw-ta-xqydrtn severe systolic heart failure. 3. Coronary artery disease with prior stents. 4. Status post [employer] implantable cardioverter-defibrillator implant on this admission. 5. Hypertension and dyslipidemia. 6. Parkinson's disease. RECOMMENDATIONS: 1. Continue current cardiovascular medications. 2. Outpatient followup with cardiac electrophysiology in 2 weeks and with cardiology in 3 to 4 weeks. Okay to discharge from a cardiovascular standpoint. Job#: [id number]
== END 2018-03-24 17:24 | DRG 258 ==
LOC: ER 07:33 → ERHOLD 08:48 → IMCU 10:10 → OBSVTOIN 14:46 → MED/SURG2 16:43
PROC: 4A023N7 Measurement of Cardiac Sampling and Pressure, Left Heart, Percutaneous Approach (ICD-10-PCS; 2018-03-16)
PROC: B2111ZZ Fluoroscopy of Multiple Coronary Arteries using Low Osmolar Contrast (ICD-10-PCS; 2018-03-16)
PROC: B2151ZZ Fluoroscopy of Left Heart using Low Osmolar Contrast (ICD-10-PCS; 2018-03-16)
PROC: 0JH60PZ Insertion of Cardiac Rhythm Related Device into Chest Subcutaneous Tissue and Fascia, Open Approach (ICD-10-PCS; principal; 2018-03-22)
DX: I13.0 Hypertensive heart and chronic kidney disease with heart failure and stage 1 through stage 4 chronic kidney disease, or unspecified chronic kidney disease (principal); I50.23 Acute on chronic systolic (congestive) heart failure; I50.84 End stage heart failure; J44.9 Chronic obstructive pulmonary disease, unspecified; I48.2 Chronic atrial fibrillation; Z79.01 Long term (current) use of anticoagulants; E78.5 Hyperlipidemia, unspecified; G20 Parkinson's disease; I25.5 Ischemic cardiomyopathy; I25.10 Atherosclerotic heart disease of native coronary artery without angina pectoris; Z95.1 Presence of aortocoronary bypass graft; N18.3 Chronic kidney disease, stage 3 (moderate)
CPT/HCPCS: 33216; 36415; 71045; 71046; 80048; 80053; 80061; 81001; 82550; 82553; 82948; 84484; 85025; 85610; 85730; 93005; 93306; 93454; 99284; C1766; C1769; C1777; J1644; J1650; J1940; J2001; J2250; J3370; J7030; J7040; Q9967

== ENCOUNTER 2018-10-23 15:17 | Emergency (ER) | payer MEDICARE, OTHER ==
[~2018-10-23] VITALS: Ht 175.3 cm; Wt 78.9 kg
[~2018-10-23 15:17] MED LIST changes: +KLOR-CON 1010 MEQ PO
--- OUTSIDE RECORDS SUMMARY | 2018-10-23 15:20 | XMS REPORT | Continuity of Care Document ---
Author Author [facility] Interface Address Unknown Phone Unavailable Problems Problem Status Onset Date Classification Date Reported Comments Source CHF Active 11/06/2014 Problem 03/24/2018 [facility] Chest pain Active Problem 03/24/2018 [facility] Epistaxis Active Problem 03/24/2018 [facility] Medications Medication Details Route Status Patient Instructions Ordering Provider Order Date Source Carbidopa/Levodopa (Sinemet 25-100 Mg Tablet) 1 Each Tablet, 1 Each Oral Four Times Daily Active 01/05/2017 [facility] Hydrocodone Bit/Acetaminophen ([place] 5-325 Tablet) 1 Each Tablet, 1 Each Oral Every 4 Hours Active 01/05/2017 [facility] Potassium Chloride (K Dur*) 10 Meq Tabcr, 20 Meq Oral Daily Active 01/05/2017 [facility] Warfarin Sodium 1 Mg Tablet, 8 Mg Oral Daily Active 01/05/2017 [facility] Aspirin (Aspir 81) 81 Mg Tablet.dr, 81 Mg Oral Daily Active 09/08/2016 [facility] Calcium Carbonate/Vitamin D3 (Calcium 500+D Tablet Chew) 1 Each Tab.chew, 500 Mg Oral Daily Active 09/08/2016 [facility] Carbidopa/Levodopa (Sinemet 25-100 Mg Tablet) 1 Each Tablet, 1 Each Oral Three Times A Day Active 09/08/2016 [facility] Clopidogrel Bisulfate (Plavix) 75 Mg Tablet, 75 Mg Oral Daily Active 09/08/2016 [facility] Doxazosin Mesylate (Cardura) 4 Mg Tablet, 4 Mg Oral Daily Active 09/08/2016 [facility] Furosemide (Lasix) 40 Mg Tablet, 40 Mg Oral Twice A Day Active 09/08/2016 [facility] Lisinopril 10 Mg Tablet, 30 Mg Oral Daily Active 09/08/2016 [facility] Oxybutynin Chloride 5 Mg Tablet, 5 Mg Oral Daily Active 09/08/2016 [facility] Potassium Chloride 10 Meq Tab.er.prt, 10 Meq Oral Daily Active 09/08/2016 [facility] Warfarin Sodium (Coumadin) 1 Mg Tablet, Unknown Dose Oral Daily Active 09/08/2016 [facility] Sildenafil Citrate (Viagra) 100 Mg Tablet, 100 Mg Oral Daily Active 06/13/2015 [facility] Albuterol Sulfate 0.63 Mg/3 Ml Vial.neb As Needed Active [facility] Amantadine Hcl (Amantadine) 100 Mg Capsule Daily Active [facility] Aspirin (Aspir 81) 81 Mg Tablet.dr Daily Active [facility] Atorvastatin Calcium 10 Mg Tablet Bedtime Active [facility] Carbidopa/Levodopa (Sinemet 25-100 Mg Tablet) 1 Each Tablet Four Times Daily Active [facility] Entacapone (Comtan) 200 Mg Tablet Four Times Daily Active [facility] Furosemide 40 Mg Tablet Daily Active [facility] Hydrocodone Bit/Acetaminophen ([place] 5-325 Tablet) 1 Each Tablet As Needed Active [facility] Nitroglycerin 0.4 Mg Tab.subl Every 5 Minutes as needed for Prn Active [facility] Oxybutynin Chloride 5 Mg Tablet Daily Active [facility] Potassium Chloride (Klor-Con 10) 10 Meq Tablet.er Daily Active [facility] Rivaroxaban (Xarelto) 20 Mg Tablet Daily Active [facility] Tamsulosin Hcl 0.4 Mg Cap.er.24h Daily Active [facility] Allergies, Adverse Reactions, Alerts Substance Category Reaction Severity Reaction type Status Date Reported Comments Source Immunizations Immunization Date Given Site Status Last Updated Comments Source Results Order Name Results Value Reference Range Date Interpretation Comments Source Capillary blood glucose measurement by glucometer (mass/volume) Capillary blood glucose measurement by glucometer (mass/volume) 164 70 - 120 03/21/2018 [facility] Activated partial thromboplastin time (aPTT) in platelet poor plasma bycoagulation assay Activated partial thromboplastin time (aPTT) in platelet poor plasma bycoagulation assay 39.0 23.8 - 35.5 03/20/2018 [facility] Automated blood basophil count (count/volume) Automated blood basophil count (count/volume) 0.1 0.0 - 0.1 03/20/2018 [facility] Automated blood basophil count as percentage of total leukocytes Automated blood basophil count as percentage of total leukocytes 0.8 0.0 - 1.0 03/20/2018 [facility] Automated blood eosinophil count Automated blood eosinophil count 0.4 0.0 - 0.4 03/20/2018 [facility] Automated blood eosinophil count as percentage of total leukocytes Automated blood eosinophil count as percentage of total leukocytes 5.1 0.0 - 6.0 03/20/2018 [facility] Automated blood hematocrit (volume fraction) Automated blood hematocrit (volume fraction) 43.2 38.2 - 49.6 03/20/2018 [facility] Automated blood lymphocyte count as percentage ot total leukocytes Automated blood lymphocyte count as percentage ot total leukocytes 14.4 18.0 - 39.1 03/20/2018 [facility] Automated blood monocyte count as percentage of total leukocytes Automated blood monocyte count as percentage of total leukocytes 17.4 4.4 - 11.3 03/20/2018 [facility] Automated blood neutrophil count Automated blood neutrophil count 5.4 2.1 - 6.9 03/20/2018 [facility] Automated blood platelet count (count/volume) Automated blood platelet count (count/volume) 175 140 - 360 03/20/2018 [facility] Automated blood segmented neutrophil count as percentage of total leukocytes Automated blood segmented neutrophil count as percentage of total leukocytes 62.1 38.7 - 80.0 03/20/2018 [facility] Automated erythrocyte mean corpuscular hemoglobin (mass per erythrocyte) Automated erythrocyte mean corpuscular hemoglobin (mass per erythrocyte) 30.7 28 - 32 03/20/2018 [facility] Automated erythrocyte mean corpuscular hemoglobin concentration measurement (mass/volume) Automated erythrocyte mean corpuscular hemoglobin concentration measurement (mass/volume) 33.8 31 - 35 03/20/2018 [facility] Automated erythrocyte mean corpuscular volume Automated erythrocyte mean corpuscular volume 90.9 81 - 99 03/20/2018 [facility] Blood erythrocytes automated count (number/volume) Blood erythrocytes automated count (number/volume) 4.75 4.3 - 5.7 03/20/2018 [facility] Blood hemoglobin measurement (moles/volume) Blood hemoglobin measurement (moles/volume) 14.6 14.0 - 18.0 03/20/2018 [facility] Blood leukocytes automated count (number/volume) Blood leukocytes automated count (number/volume) 8.66 4.8 - 10.8 03/20/2018 [facility] Blood lymphocytes count (number/volume) Blood lymphocytes count (number/volume) 1.3 1.0 - 3.2 03/20/2018 [facility] Blood monocytes automated count (number/volume) Blood monocytes automated count (number/volume) 1.5 0.2 - 0.8 03/20/2018 [facility] Estimated glomerular filtration rate (GFR) determination Estimated glomerular filtration rate (GFR) determination 53 60 03/20/2018 [facility] Glucose measurement Glucose measurement 97 74 - 118 03/20/2018 [facility] INR in Platelet poor plasma by Coagulation assay INR in Platelet poor plasma by Coagulation assay 1.19 03/20/2018 [facility] Prothrombin time (PT) in platelet poor plasma by coagulation assay Prothrombin time (PT) in platelet poor plasma by coagulation assay 14.2 11.9 - 14.5 03/20/2018 [facility] Serum or plasma anion gap Serum or plasma anion gap 12.6 8 - 16 03/20/2018 [facility] Serum or plasma calcium measurement (mass/volume) Serum or plasma calcium measurement (mass/volume) 9.0 8.4 - 10.2 03/20/2018 [facility] Serum or plasma carbon dioxide, total measurement (moles/volume) Serum or plasma carbon dioxide, total measurement (moles/volume) 29 22 - 29 03/20/2018 [facility] Serum or plasma chloride measurement (moles/volume) Serum or plasma chloride measurement (moles/volume) 98 98 - 107 03/20/2018 [facility] Serum or plasma creatinine measurement (mass/volume) Serum or plasma creatinine measurement (mass/volume) 1.29 0.72 - 1.25 03/20/2018 [facility] Serum or plasma potassium measurement (moles/volume) Serum or plasma potassium measurement (moles/volume) 3.6 3.5 - 5.1 03/20/2018 [facility] Serum or plasma sodium measurement (moles/volume) Serum or plasma sodium measurement (moles/volume) 136 136 - 145 03/20/2018 [facility] Serum or plasma urea nitrogen measurement (mass/volume) Serum or plasma urea nitrogen measurement (mass/volume) 27 7 - 26 03/20/2018 [facility] Serum or plasma urea nitrogen/creatinine mass ratio Serum or plasma urea nitrogen/creatinine mass ratio 21 6 - 25 03/20/2018 [facility] Red Cell Distribution Width 14.8 11.7 - 14.4 03/20/2018 [facility] IM GRANULOCYTES % 0.2 0.0 - 1.0 03/20/2018 [facility] Absolute Immature Granulocyte (auto 0.02 0 - 0.1 03/20/2018 [facility] Serum or plasma cholesterol in HDL measurement (mass/volume) Serum or plasma cholesterol in HDL measurement (mass/volume) 65 40 - 60 03/17/2018 [facility] Serum or plasma cholesterol in LDL measurement (mass/volume) Serum or plasma cholesterol in LDL measurement (mass/volume) 36 60 - 130 03/17/2018 [facility] Serum or plasma cholesterol measurement (mass/volume) Serum or plasma cholesterol measurement (mass/volume) 108 0 - 199 03/17/2018 [facility] Serum or plasma creatine kinase MB measurement (mass/volume) Serum or plasma creatine kinase MB measurement (mass/volume) 1.20 0 - 5.0 03/17/2018 [facility] Serum or plasma creatine kinase measurement (enzymatic activity/volume) Serum or plasma creatine kinase measurement (enzymatic activity/volume) 31 30 - 200 03/17/2018 [facility] Serum or plasma total cholesterol/cholesterol in HDL mass ratio Serum or plasma total cholesterol/cholesterol in HDL mass ratio 1.7 3.9 - 4.7 03/17/2018 [facility] Serum or plasma triglyceride measurement (mass/volume) Serum or plasma triglyceride measurement (mass/volume) 33 0 - 149 03/17/2018 [facility] Troponin I measurement by highly sensitive enzyme immunoassay Troponin I measurement by highly sensitive enzyme immunoassay 0.023 0 - 0.300 03/17/2018 [facility] Automated urine sediment leukocyte count by microscopy (number/high power field) Automated urine sediment leukocyte count by microscopy (number/high power field) null 0 - 5 03/16/2018 [facility] Bacteria detection in urine sediment by light microscopy Bacteria detection in urine sediment by light microscopy RARE NONE 03/16/2018 [facility] Epithelial cells detection in urine sediment by light microscopy Epithelial cells detection in urine sediment by light microscopy RARE NONE 03/16/2018 [facility] Erythrocytes detection in urine sediment by light microscopy Erythrocytes detection in urine sediment by light microscopy null 0 - 5 03/16/2018 [facility] Specific gravity of Urine by Test strip Specific gravity of Urine by Test strip 1.010 1.010 - 1.025 03/16/2018 [facility] Urine clarity Urine clarity CLEAR CLEAR 03/16/2018 [facility] Urine color determination Urine color determination YELLOW YELLOW 03/16/2018 [facility] Urine erythrocytes detection Urine erythrocytes detection TRACE NEGATIVE 03/16/2018 [facility] Urine glucose detection Urine glucose detection NEGATIVE NEGATIVE 03/16/2018 [facility] Urine ketones detection by automated test strip Urine ketones detection by automated test strip NEGATIVE NEGATIVE 03/16/2018 [facility] Urine leukocyte esterase detection by dipstick Urine leukocyte esterase detection by dipstick NEGATIVE NEGATIVE 03/16/2018 [facility] Urine nitrite detection Urine nitrite detection NEGATIVE NEGATIVE 03/16/2018 [facility] Urine pH measurement by automated test strip Urine pH measurement by automated test strip 6 5 - 7 03/16/2018 [facility] Urine protein measurement by test strip (mass/volume) Urine protein measurement by test strip (mass/volume) NEGATIVE NEGATIVE 03/16/2018 [facility] Urine total bilirubin measurement (mass/volume) Urine total bilirubin measurement (mass/volume) NEGATIVE NEGATIVE 03/16/2018 [facility] Urine urobilinogen measurement by test strip (mass/volume) Urine urobilinogen measurement by test strip (mass/volume) 0.2 0.2 - 1 03/16/2018 [facility] Plasma globulin measurement (mass/volume) Plasma globulin measurement (mass/volume) 3.5 2.3 - 3.5 03/16/2018 [facility] Serum or plasma alanine aminotransferase measurement (enzymatic activity/volume) Serum or plasma alanine aminotransferase measurement (enzymatic activity/volume) 7 0 - 55 03/16/2018 [facility] Serum or plasma albumin measurement (mass/volume) Serum or plasma albumin measurement (mass/volume) 3.7 3.5 - 5.0 03/16/2018 [facility] Serum or plasma albumin/globulin mass ratio Serum or plasma albumin/globulin mass ratio 1.1 0.8 - 2.0 03/16/2018 [facility] Serum or plasma alkaline phosphatase measurement (enzymatic activity/volume) Serum or plasma alkaline phosphatase measurement (enzymatic activity/volume) 118 40 - 150 03/16/2018 [facility] Serum or plasma protein measurement (mass/volume) Serum or plasma protein measurement (mass/volume) 7.2 6.5 - 8.1 03/16/[address] [facility] Serum or plasma total bilirubin measurement (mass/volume) Serum or plasma total bilirubin measurement (mass/volume) 1.4 0.2 - 1.2 03/16/2018 [facility] Aspartate Amino Transf (AST/SGOT) 18 5 - 34 03/16/2018 [facility] Vital Signs Vital Sign Value Date Comments Source Encounters Location Location Details Encounter Type Encounter Number Reason For Visit Attending Provider ADM Date DC Date Status Source Registered Clinic [id number] NEIL GUZMAN MD 09/08/2017 [facility] Departed Emergency Room [id number] ALEXANDRA HOLCOMB MD 02/19/2018 02/19/2018 [facility] Registered Clinic [id number] BASSAM LANDRY MD 02/24/2018 [facility] Discharged Inpatient [id number] NEIL GUZMAN MD 03/16/2018 03/24/2018 [facility] Procedures Procedure Code Date Perfomer Comments Source X-ray of chest, two views [id number] 03/18/[address] [facility] CT of abdomen and pelvis without contrast [id number] [facility]
--- OUTSIDE RECORDS SUMMARY | 2018-10-23 15:20 | XMS REPORT | Clinical Summary ---
Author Author [facility] Address Unknown Phone Unavailable Care Team Providers Care Senior Investment Analyst Name Role Phone Asked, No Pcp PCP Unavailable Allergies No Known Allergies Medications End Date Status Medication Sig Dispensed Refills Start Date Active AmANTadine (SYMMETREL) Take 100 mg 2 100 mg capsule by mouth once 6 daily. Active amantadine HCl 100 mg 0 tablet 6 Active atorvastatin (LIPITOR) 80 0 MG tablet 6 Active carbidopa-levodopa 0 (SINEMET) 25-100 mg per 6 tablet Active clopidogrel (PLAVIX) 75 0 mg tablet 6 Active entacapone (COMTAN) 200 0 mg tablet 6 Active furosemide (LASIX) 40 MG 0 tablet 6 Active HYDROcodone-acetaminophen TAKE 1 TABLET 0 (NORCO) 5-325 mg per BY MOUTH 6 tablet EVERY 4 TO 6 HOURS NEEDED FOR PAIN Active oxybutynin (DITROPAN) 5 Take 5 mg by 5 MG tablet mouth once 6 daily. Active potassium chloride 0 (K-DUR,KLOR-CON) 10 MEQ 6 CR tablet Active KLOR-CON 10 10 mEq CR 0 tablet 6 Active warfarin (COUMADIN) 5 MG Take 5 mg by 5 tablet mouth once 6 daily. Active warfarin (COUMADIN) 2.5 0 MG tablet 6 Active warfarin (COUMADIN) 7.5 0 MG tablet 6 Active Problems Not on file Social History Date Tobacco Use Types Packs/Day Years Used Never Assessed Sex Assigned at Date Recorded Not on file Industry Job Start Date Occupation Not on file Not on file Not on file Travel End Travel History Travel Start No recent travel history available. Last Filed Vital Signs Not on file Plan of Treatment Health Maintenance Due Date Last Done Comments SHINGLES VACCINES (#1) 1982 65+ PNEUMOCOCCAL VACCINE 1997 (1 of 2 - PCV13) PNEUMOCOCCAL 1997 POLYSACCHARIDE VACCINE AGE 65 AND OVER INFLUENZA VACCINE 03/01/2018 Results Not on fileafter 10/22/2017 Insurance Payer Benefit Subscriber ID Type Phone Address Plan / Group MEDICARE MEDICARE xxxxxxxxxx Medicare [place] PART A AND B xxxxxxxxxx [employer] FOR LIFE Advance Directives Patient has advance care planning documents on file. For more information, caitlin concepcion contact: Vivek Cross [address] [place] [address]
[2018-10-23 17:07] LABS: BASOPHILS # (AUTO) 0.1 (0.0-0.1); BASOPHILS % 0.9 % (0.0-1.0); EOSINOPHILS # (AUTO) 0.7 (0.0-0.4); EOSINOPHILS % 8.7 % (0.0-6.0); HEMATOCRIT 42.9 % (38.2-49.6); HEMOGLOBIN 13.8 g/dL (14.0-18.0); LYMPHOCYTES % 12.9 % (18.0-39.1); MEAN CORPUSCULAR HEMOGLOBIN 30.1 pg (28-32); MEAN CORPUSCULAR HGB CONC 32.2 g/dL (31-35); MEAN CORPUSCULAR VOLUME 93.7 fL (81-99); MONOCYTES % 13.4 % (4.4-11.3); NEUTROPHILS # (AUTO) 4.8 (2.1-6.9); NEUTROPHILS % 63.8 % (38.7-80.0); PLATELET COUNT 197 x10e3/uL (140-360); RED BLOOD COUNT 4.58 x10e6/uL (4.3-5.7); RED CELL DISTRIBUTION WIDTH 15.2 % (11.7-14.4)
[2018-10-23 17:12] LABS: INR 0.96; PARTIAL THROMBOPLASTIN TIME 42.2 seconds (23.8-35.5); PROTHROMBIN TIME 13.3 seconds (11.9-14.5)
[2018-10-23 17:19] LABS: ALBUMIN 3.5 g/dL (3.5-5.0); ALBUMIN/GLOBULIN RATIO 0.9 (0.8-2.0); ANION GAP 10.5 mmol/L (8-16); CALCIUM 9.2 mg/dL (8.4-10.2); CREATININE, SERUM 1.16 mg/dL (0.72-1.25); POTASSIUM 4.5 mmol/L (3.5-5.1)
[2018-10-23 17:50] LABS: CLARITY,URINE SL CLOUDY (CLEAR); COLOR,URINE YELLOW (YELLOW)
[2018-10-23 17:51] LABS: BILIRUBIN,URINE NEGATIVE (NEGATIVE); KETONES,URINE NEGATIVE (NEGATIVE); LEUKOCYTE ESTERASE ,URINE NEGATIVE (NEGATIVE); NITRITE,URINE NEGATIVE (NEGATIVE); PROTEIN,URINE DIPSTICK TRACE (NEGATIVE); URINE UROBILINOGEN 0.2 mg/dL (0.2 - 1)
[2018-10-23 18:01] LABS: BACTERIA,URINE MODERATE /HPF; EPITHELIAL CELLS,URINE FEW /LPF; MUCUS,URINE FEW (RARE)
[2018-10-23] MEDS ORDERED: SODIUM CHLORIDE 0.9% 250ML 250 ML ONE (19:32)
[2018-10-23] MEDS ORDERED: CEFTRIAXONE SOD 1 GM/NS 50 ML 50 ML IV ONE (19:45)
--- NOTE | 2018-10-23 20:41 | Diagnostic Imaging Report ---
EXAM: CT Abdomen and Pelvis WITHOUT and WITH contrast INDICATION: Bleeding from penis ^hematuria protocol ^[id number] ^[id number] ^Y COMPARISON: None. TECHNIQUE: Abdomen and pelvis were scanned utilizing a multidetector helical scanner from the lung base to the pubic symphysis after administration of IV contrast. Coronal and sagittal reformations were obtained. Hematuria protocol was performed. Scan was performed pre- in supine position and nephrogenic/excretory phase with a 10 minute split bolus in prone position. IV CONTRAST: 150 mL of Isovue 370 ORAL CONTRAST: Water COMPLICATIONS: None RADIATION DOSE: Total DLP: 718 mGy*cm Estimated effective dose: (DLP x 0.015 x size factor) mSv CTDIvol has been reviewed. It is below the limits set by the Radiation Protocol Committee (RPC). FINDINGS: LINES and TUBES: Distal portion of AICD wire noted in the right ventricle. LOWER THORAX: Mild bilateral lower lobe subpleural reticulation, suggesting fibrotic changes. Mild bronchial wall thickening in bilateral lower lobes, which may be the sequela of chronic bronchitis. Moderate to marked cardiomegaly. Atherosclerotic calcification of the coronary arteries and thoracic aorta. HEPATOBILIARY: No focal hepatic lesions. No biliary ductal dilation. GALLBLADDER: Not visualized. No wall thickening. SPLEEN: No splenomegaly. PANCREAS: No focal masses or ductal dilatation. ADRENALS: Thickening of the left adrenal gland (series 6, image 34), which may be due to hyperplasia. Right adrenal gland is unremarkable. KIDNEYS/URETERS: Kidneys: Symmetrical renal enhancement. No hydronephrosis or perinephric stranding. Cyst: 1.8 cm fluid density simple cyst in the left superior pole (series 6, image 28). 6 mm hypodense lesions in the left interpolar and mid to inferior kidney (series 6, image 47 and 53), which are too small to characterize but likely represent small cysts. Mass: None. Stones: 4 mm nonobstructing calculus in the right superior pole (series 3, image 39). No other renal or ureteral calculi. Upper collecting systems: No irregularities or filling defects. Ureters: The proximal and most distal portions of the right ureter are opacified. The proximal and distal left ureter are opacified. No filling defects, strictures or extrinsic locations. No definite urothelial thickening. Bladder: Bladder is unremarkable, without focal lesions or wall thickening. GI TRACT: No bowel dilation or evidence of obstruction. PELVIC ORGANS/BLADDER: Prostate is enlarged. LYMPH NODES: No lymphadenopathy. VESSELS: Moderate atherosclerotic calcification of the abdominal aorta and iliac vessels. PERITONEUM / RETROPERITONEUM: No free air or fluid. BONES: No aggressive lesions. Degenerative disc changes in the lumbosacral spine, predominantly at L2-L3. Facet hypertrophy L5-S1. SOFT TISSUES: Small fat-containing right inguinal hernia. IMPRESSION: 1. 4 mm nonobstructing calculus in the right superior pole. No other renal or any ureteral or bladder calculi. No hydronephrosis or obstruction. No filling defects in the opacified portions of the genitourinary tract. 2. Moderate to marked cardiomegaly. Mild bilateral lower lobe fibrotic changes, with likely sequela of chronic bronchitis. 3. Enlarged prostate, likely due to BPH. Signed by: Dr. Bijan Boston M.D. on 10/23/2018 8:37 PM
[2018-10-23 21:11] VITALS: BP 160/113
[2018-10-23] MEDS ORDERED: IOPAMIDOL 370 MG/ML 200 ML INFUS..BTL INJ ONE (21:17)
== END 2018-10-23 21:21 | disposition home or self-care (01) ==
LOC: ER 15:17
DX: R31.9 Hematuria, unspecified (principal); N20.0 Calculus of kidney; I51.9 Heart disease, unspecified; G98.8 Other disorders of nervous system
CPT/HCPCS: 36415; 74178; 80053; 81001; 85025; 85610; 85730; 87086; 99284; J7050; Q9967

== ENCOUNTER 2018-12-13 07:16 | Emergency (ER) | payer MEDICARE, OTHER ==
[~2018-12-13] VITALS: Ht 175.3 cm; Wt 78.9 kg
--- OUTSIDE RECORDS SUMMARY | 2018-12-13 07:19 | XMS REPORT | Clinical Summary ---
Author Author [facility] Address Unknown Phone Unavailable Care Team Providers Care Pilot Can Router Name Role Phone Asked, No Pcp PCP [...] VACCINE AGE 65 AND OVER INFLUENZA VACCINE 03/01/2019 Results Not on fileafter 12/12/2017 Insurance Payer Benefit Subscriber ID Type Phone Address Plan / Group MEDICARE MEDICARE xxxxxxxxxx Medicare [place] A [place] B xxxxxxxxxx [facility] [employer] Advance Directives Patient has advance care planning documents on file. For more information, caitlin concepcion contact: Vivek Cross [address] [place] [address]
--- NOTE | 2018-12-13 08:59 | Diagnostic Imaging Report ---
Examination: CT head without contrast Clinical Indication: Fall out of bed. Head injury. Technique: Transaxial noncontrast images from the skull base through the vertex were obtained. Sagittal and coronal reformatted images were done. Dose modulation, iterative reconstruction, and/or weight based adjustment of the mA/kV was utilized to reduce the radiation dose to as low as reasonably achievable. Comparison: None. Findings: Scalp: No abnormalities. Bones: Intact. No fractures. No blastic or lytic lesions. Brain sulci: Appropriate for patient's age. Ventricles: Moderate volume loss for patient's age. No hydrocephalus. . Extra-axial space: No abnormalities. Parenchyma: There are confluent and patchy areas of low-attenuation within subcortical and periventricular white matter, nonspecific, but could represent microvascular ischemic disease. No masses, hemorrhage, or acute or chronic cortical based vascular insults. Suprasellar region: No abnormalities. Craniocervical junction: The foramen magnum is patent. No Chiari one malformation. Incidental findings: Atherosclerotic calcification of the cavernous and supraclinoid internal carotid and V4 segments of the bilateral vertebral arteries. 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 Impression: 1. No acute intracranial finding. 2. Moderate to severe chronic microvascular ischemic change and volume loss. Signed by: Dr. Cristal Acevedo M.D. on 12/13/2018 8:55 AM
--- NOTE | 2018-12-13 09:05 | Diagnostic Imaging Report ---
Examination: CT CERVICAL SPINE WITHOUT CONTRAST HISTORY:Fall with neck injury. COMPARISON:None. TECHNIQUE: Multidetector helical axial images were obtained without contrast from the foramen magnum to T1. Coronal and sagittal reformatted images were done. Bone and soft tissue windows were evaluated. Dose modulation, iterative reconstruction, and/or weight based adjustment of the mA/kV was utilized to reduce the radiation dose to as low as reasonably achievable. FINDINGS: Alignment:Normal alignment with straightening of normal lordosis. Vertebrae: Normal height and density. No acute fracture, infection or neoplasm. Disc space heights: Moderate to severe narrowing from C4 through T1. Caliber of spinal canal: Developmentally normal. Posterior fossa and craniocervical junction: Foramen magnum patent. No Chiari 1 malformation. Soft tissues: No abnormality. Degenerative changes: Right facet arthropathy from C2-C3 through C4-C5. Diffuse disc osteophyte complex from C4-C5 through C6-C7 without canal stenosis. Visualized lung apices: No abnormalities. IMPRESSION: No acute abnormalities. Signed by: Dr. Cristal Acevedo M.D. on 12/13/2018 9:02 AM
--- NOTE | 2018-12-13 09:15 | Diagnostic Imaging Report ---
EXAM: SHOULDER RIGHT COMPLETE DATE: 12/13/2018 8:00 AM INDICATION: ^FALL ^[id number] ^[id number] COMPARISON: None FINDINGS: 2 views of the right shoulder show a comminuted slightly displaced fracture of the distal end of the right clavicle. Internal and external rotation of the humeral head is demonstrated. There is no dislocation of the glenohumeral joint. There is partial visualization of a likely transvenous cardiac lead. IMPRESSION: Slightly displaced comminuted fracture at the distal end of the right clavicle. Signed by: Dr. Deven Brenner M.D. on 12/13/2018 9:11 AM
--- NOTE | 2018-12-13 09:18 | Diagnostic Imaging Report ---
EXAM: CHEST 2 VIEWS DATE: 12/13/2018 8:00 AM INDICATION: ^FALL ^[id number] ^[id number] COMPARISON: Chest x-ray, 03/18/2018 FINDINGS: Lines and tubes: Since last exam there has been placement of an implanted cardiac device on the left with transvenous lead extending to the right ventricle. Heart size is slightly prominent, likely accentuated by low lung volumes. No focal pulmonary opacity, pleural effusion or pneumothorax. Prominence of bilateral lung markings likely accentuated by low lung volumes. There is a comminuted slightly displaced fracture at the distal end of the right clavicle, new since last exam and apparently acute with no surrounding callus. No other acute bony abnormality. IMPRESSION: 1. No evidence for acute disease in the chest. 2. Likely acute fracture at the distal end of the right clavicle. 3. Interval placement of implanted cardiac device on the left and transvenous lead since last exam. Signed by: Dr. Deven Brenner M.D. on 12/13/2018 9:15 AM
[2018-12-13 11:06] VITALS: BP 166/87
== END 2018-12-13 11:45 | disposition home or self-care (01) ==
LOC: ER 07:16
DX: S00.83XA Contusion of other part of head, initial encounter (principal); S42.031A Displaced fracture of lateral end of right clavicle, initial encounter for closed fracture; W06.XXXA Fall from bed, initial encounter; Y92.003 Bedroom of unspecified non-institutional (private) residence as the place of occurrence of the external cause; G20 Parkinson's disease; I10 Essential (primary) hypertension; I25.10 Atherosclerotic heart disease of native coronary artery without angina pectoris; H35.30 Unspecified macular degeneration; Z95.810 Presence of automatic (implantable) cardiac defibrillator; I25.2 Old myocardial infarction; Z95.5 Presence of coronary angioplasty implant and graft
CPT/HCPCS: 70450; 71046; 72125; 99283

== ENCOUNTER 2019-12-28 15:00 | Inpatient (IN) | payer MEDICARE, OTHER ==
[~2019-12-28] VITALS: Ht 175.3 cm; Wt 68.6 kg
--- OUTSIDE RECORDS SUMMARY | 2019-12-28 15:03 | XMS REPORT | Clinical Summary ---
Author Author [facility] Address Unknown Phone Unavailable Care Team Providers Care Row Boss Hoeing Name Role Phone Asked, No Pcp PCP Unavailable Allergies No Known Allergies Medications End Date Status Medication Sig Dispensed Refills Start Date Active AmANTadine (SYMMETREL) Take 100 mg 2 01 100 mg capsule by mouth once 6 daily. Active amantadine HCl 100 mg 0 tablet 6 Active atorvastatin (LIPITOR) 80 0 MG tablet 6 Active carbidopa-levodopa 0 (SINEMET) 25-100 mg per 6 tablet Active clopidogrel (PLAVIX) 75 0 mg tablet 6 Active entacapone (COMTAN) 200 0 mg tablet 6 Active furosemide (LASIX) 40 MG 0 tablet 6 Active HYDROcodone-acetaminophen TAKE 1 TABLET 0 05/01 (NORCO) 5-325 mg per BY MOUTH 6 tablet EVERY 4 TO 6 HOURS NEEDED FOR PAIN Active oxybutynin (DITROPAN) 5 Take 5 mg by 5 MG tablet mouth once 6 daily. Active potassium chloride 0 (K-DUR,KLOR-CON) 10 MEQ 6 CR tablet Active KLOR-CON 10 10 mEq CR 0 tablet 6 Active warfarin (COUMADIN) 5 MG Take 5 mg by 5 05/11 tablet mouth once 6 daily. 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
--- OUTSIDE RECORDS SUMMARY | 2019-12-28 15:04 | XMS REPORT ---
Author Author [facility] t Organization [facility] Address [address] [place] [address] Phone Unavailable Care Team Providers Care Mammographer Name Role Phone NEIL GUZMAN MD PCP [place] WRIGHT Attphys Unavailable Jani HOLCOMB Attphys Unavailable MEGAN SOUHEIL Attphys Unavailable BASSAM LANDRY Attphys Unavailable Lalo OSORIO Attphys Unavailable NEIL GUZMAN Admphys Unavailable Payers Payer Name Policy Type Policy Number Effective Date Expiration Date Sirena Castelan Ppo [id number] 2015 00:00:00 [facility] Medicare A & B [id number] 1997 00:00:00 C [facility] Problems Condition Name Condition Details Condition Category Status Onset Date Resolution Date Last Treatment Date Treating Clinician Comments Source Congestive heart failure CHF (congestive heart failure) Problem Active 2014-11-06 00:00:00 [facility] Chest pain Chest pain Problem Active C [facility] Epistaxis Epistaxis Problem Active [facility] Allergies, Adverse Reactions, Alerts This patient has no known allergies or adverse reactions. Social History Social Habit Start Date Stop Date Quantity Comments Source Sex Assigned At [facility] Medications Ordered Medication Name Filled Medication Name Start Date Stop Da te Current Medication? Ordering Clinician Indication Dosage Frequency Signature (SIG) Comments Components Source potassium chloride (K-DUR,KLOR-CON) 10 MEQ CR tablet 2 00:00:00 Yes Vivek lebron warfarin (COUMADIN) 2.5 MG tablet 2016-06-21 00:00:00 Yes Vivek Cross carbidopa-levodopa (SINEMET) 25-100 mg per tablet 2016-06-14 00:00:00 Yes Vivek hernandez clopidogrel (PLAVIX) 75 mg tablet 2016-05-17 00:00:00 Yes Vivek Cross entacapone (COMTAN) 200 mg tablet 2016-05-17 00:00:00 Yes Vivek Cross amantadine HCl 100 mg tablet 2016-05-11 00:00:00 Yes Vivek Cross atorvastatin (LIPITOR) 80 MG tablet 2016-05-11 00:00:00 Yes Vivek Cross furosemide (LASIX) 40 MG tablet 2016-05-11 00:00:00 Yes Vivek Cross HYDROcodone-acetaminophen (NORCO) 5-325 mg per tablet 2016-05-11 00:00:00 Yes TAKE 1 TABLET BY MOUTH EVERY 4 TO 6 HOUR S NEEDED FOR PAIN Vivek Cross KLOR-CON 10 10 mEq CR tablet 2016-05-11 00:00:00 Yes Vivek Cross warfarin (COUMADIN) 5 MG tablet 2016-05-11 00:00:00 Yes 5mg QD Take 5 mg by mouth once daily. Vivek Cross warfarin (COUMADIN) 7.5 MG tablet 2016-05-11 00:00:00 Yes Vivek Cross AmANTadine (SYMMETREL) 100 mg capsule 2016-05-06 00:00:00 Y es 100mg QD Take 100 mg by mouth once daily. Vivek Cross oxybutynin (DITROPAN) 5 MG tablet 2016-04-06 00:00:00 Yes 5mg QD Take 5 mg by mouth once daily. Vivek Dillon t Albuterol Sulfate 0.63 Mg/3 Ml Vial.monse Albuterol Sulfate 0. 63 Mg/3 Ml Vial.neb Yes 1 As Needed [facility] Amantadine Hcl (Amantadine) 100 Mg Capsule Amantadine Hcl (Amantadine) 100 Mg Capsule Yes 100 Daily [facility] Aspirin (Aspir 81) 81 Mg Tablet. Aspirin (Aspir 81) 81 Mg Tablet. Yes 81 Daily [facility] Atorvastatin Calcium 10 Mg Tablet Atorvastatin Calcium 10 Mg Tablet Yes 80 Bedtime [facility] Carbidopa/Levodopa (Sinemet 25-100 Mg Tablet) 1 Each T ablet Carbidopa/Levodopa (Sinemet 25-100 Mg Tablet) 1 Each Tablet Yes Four Times Daily [facility] Entacapone (Comtan) 200 Mg Tablet Entacapone (Comtan) 200 Mg Tablet Yes 200 Four Times Daily [facility] Furosemide 40 Mg Tablet Furosemide 40 Mg Tablet Yes 80 Daily [facility] Hydrocodone Bit/Acetaminophen ([place] 5-325 Tablet) 1 E ach Tablet Hydrocodone Bit/Acetaminophen ([place] 5-325 Tablet) 1 Each Tablet Yes 1 As Needed [facility] Nitroglycerin 0.4 Mg Tab.subl Nitroglycerin 0.4 Mg Tab.subl Yes .4 Every 5 Minutes as needed for Prn [facility] Oxybutynin Chloride 5 Mg Tablet Oxybutynin Chloride 5 Mg Tablet Yes 5 Daily [facility] Potassium Chloride (Klor-Con 10) 10 Meq Tablet.er Pota ssium Chloride (Klor-Con 10) 10 Meq Tablet.er Yes 10 Daily [facility] Rivaroxaban (Xarelto) 20 Mg Tablet Rivaroxaban (Xarelto) 20 Mg Tablet Yes 20 Daily [facility] Tamsulosin Hcl 0.4 Mg Cap.er.24h Tamsulosin Hcl 0.4 Mg Cap.er.24h Yes 1 Daily [facility] Carbidopa/Levodopa (Sinemet 25-100 Mg Tablet) 1 Each T ablet, 1 Each Oral Carbidopa/Levodopa (Sinemet 25-100 Mg Tablet) 1 Each Tablet, 1 Each Oral 2017-01-05 00:00:00 No 1 Four Times Daily [facility] Hydrocodone Bit/Acetaminophen ([place] 5-325 Tablet) 1 E ach Tablet, 1 Each Oral Hydrocodone Bit/Acetaminophen ([place] 5-325 Tablet) 1 Each Tablet, 1 Each Oral 2017-01-05 00:00:00 No 1 Every 4 Hours [facility] Potassium Chloride (K Dur*) 10 Meq Tabcr, 20 Meq Oral Potassium Chloride (K Dur*) 10 Meq Tabcr, 20 Meq Oral 2017-01-05 00:00:00 No 20 Daily [facility] Warfarin Sodium 1 Mg Tablet, 8 Mg Oral Warfarin Sodium 1 Mg Tabl et, 8 Mg Oral 2017-01-05 00:00:00 No 8 Daily [facility] Aspirin (Aspir 81) 81 Mg Tablet., 81 Mg Oral Aspirin (Aspir 81) 81 Mg Tablet.dr, 81 Mg Oral 2016-09-08 00:00:00 No 81 Da alexus [facility] Calcium Carbonate/Vitamin D3 (Calcium 50 0+D Tablet Chew) 1 Each Tab.chew, 500 Mg Oral Calcium Carbonate/Vitamin D3 (Calcium 50 0+D Tablet Chew) 1 Each Tab.chew, 500 Mg Oral 2016-09-08 00:00:00 No 500 Daily [facility] Carbidopa/Levodopa (Sinemet 25-100 Mg Tablet) 1 Each T ablet, 1 Each Oral Carbidopa/Levodopa (Sinemet 25-100 Mg Tablet) 1 Each Tablet, 1 Each Oral 2016-09-08 00:00:00 No 1 Three Times A Day [facility] Clopidogrel Bisulfate (Plavix) 75 Mg Tablet, 75 Mg Ora l Clopidogrel Bisulfate (Plavix) 75 Mg Tablet, 75 Mg Oral 2016-09-08 00:00:00 No 75 Daily [facility] Doxazosin Mesylate (Cardura) 4 Mg Tablet, 4 Mg Oral Do xazosin Mesylate (Cardura) 4 Mg Tablet, 4 Mg Oral 2016-09-08 00:00:00 No 4 D aily [facility] Furosemide (Lasix) 40 Mg Tablet, 40 Mg Oral Furosemide (Lasix) 40 Mg Tablet, 40 Mg Oral 2016-09-08 00:00:00 No 40 Twice A Day [facility] Lisinopril 10 Mg Tablet, 30 Mg Oral Lisinopril 10 Mg Tablet, 30 Mg Oral 2016-09-08 00:00:00 No 30 Daily [facility] Oxybutynin Chloride 5 Mg Tablet, 5 Mg Oral Oxybutynin Chloride 5 Mg Tablet, 5 Mg Oral 2016-09-08 00:00:00 No 5 Daily [facility] Potassium Chloride 10 Meq Tab.er.prt, 10 Meq Oral Pota ssium Chloride 10 Meq Tab.er.prt, 10 Meq Oral 2016-09-08 00:00:00 No 10 Daily [facility] Warfarin Sodium (Coumadin) 1 Mg Tablet, Unknown Dose Oral Warfarin Sodium (Coumadin) 1 Mg Tablet, Unknown Dose Oral 2016-09-08 00:00:00 No Daily [facility] Sildenafil Citrate (Viagra) 100 Mg Tablet, 100 Mg Oral Sildenafil Citrate (Viagra) 100 Mg Tablet, 100 Mg Oral 2015-06-13 00:00:00 No 100 Daily [facility] Procedures Procedure Date / Time Performed Performing Clinician [facility] e Computed tomography of brain without radiopaque contrast 201 04-05-15 00:00:00 ALEXANDRA WRIGHT [facility] Computed tomography of cervical spine without contrast 12-13 00:00:00 ALEXANDRA WRIGHT [facility] X-ray of chest, two views 2018-12-13 00:00:00 ALEXANDRA WRIGHT [facility] Computed tomography of abdomen and pelvis without then with contrast 2018-10-23 00:00:00 DEVEN HOLCOMB [facility] INSERT OF DEFIB GEN INTO CHEST SUBCU/FASCIA, OPEN APPROACH 2 00:00:00 [facility] INSERTION OF DEFIB LEAD INTO R VENTRICLE, PERC APPROACH 2017 00:00:00 [facility] X-ray of chest, two views 2018-03-18 00:00:00 CATY VILLASENOR [facility] MEASURE OF CARDIAC SAMPL & PRESSURE, L HEART, PERC APPROACH 2018-03-16 00:00:00 MICHAEL MINA [facility] FLUOROSCOPY OF MULT COR ART USING L OSM CONTRAST 2018-03-16 00:00:00 MICHAEL MINA [facility] FLUOROSCOPY OF LEFT HEART USING LOW OSMOLAR CONTRAST 2018-03 00:00:00 MICHAEL MINA [facility] CT of abdomen and pelvis without contrast 2018-02-24 00:00:00 BASSAM FUNEZ [facility] Plan of Care Planned Activity Planned Date Details Comments Source Future Scheduled Test 2020-03-01 00:00:00 INFLUENZA VACCINE [code = INFLUENZA VACCINE] [facility] Future Scheduled Test 1997 00:00:00 65+ PNEUMOCOCCAL V ACCINE (1 of 2 - PCV13) [code = 65+ PNEUMOCOCCAL VACCINE (1 of 2 - PCV13)] [facility] Future Scheduled Test 1982 00:00:00 SHINGLES VACCINES (#1) [code = SHINGLES VACCINES (#1)] [facility] Encounters Start Date/Time End Date/Time Encounter Type Admission Type Attendi [facility] Care Department Encounter ID Source 2018-12-13 07:16:00 2018-12-13 11:45:00 Departed Emergency Room [address] [facility] [id number] [facility] 2018-10-23 15:17:00 2018-10-23 21:21:00 Departed Emergency Room [address] [facility] [id number] [facility] 2018-03-16 14:46:00 2018-03-24 17:24:00 Discharged Inpatient [address] [facility] [id number] [facility] 2018-02-24 11:18:00 2018-02-24 11:18:00 Registered Clinic [address] [facility] [id number] [facility] 2018-02-19 00:01:00 2018-02-19 00:38:[address] [facility] [id number] [facility] 2017-09-08 14:03:00 2017-09-08 14:03:00 Registered Clinic EL NEIL GUZMAN [facility] [id number] [facility] 2017-05-03 23:29:00 2017-05-04 02:56:00 Departed Emergency Room ER FRANKIE OSORIO [facility] [id number] [facility] Results Test Description Test Time Test Comments Results Result Comments Source CHEST 2 VIEWS 2018-12-13 09:11:00 [facility] [address] [address] Patient Name: EVERETT MONROE JR MR #: [id number] : 1930 Age/Sex: 87/M Req #: [id number] Adm Physician: Ordered by: ALEXANDRA WRIGHT MD Report #: [id number] Location: ER Room/Bed: Procedure: [id number] DX/CHEST 2 VIEWS Exam Date: 12/13/18 Exam Time: 824 REPORT STATUS: Signed EXAM: CHEST 2 VIEWS DATE: 12/13/2018 8:00 AM INDICATION: FALL 20181213 COMPARISON: Chest x-ray, 03/18/2018 FINDINGS: Lines and tubes: Since last exam there has been placement of an implanted cardiac device on the left with transvenous lead extending to the right ventricle. Heart size is slightly prominent, likely accentuated by low lung volumes. No focal pulmonary opacity, pleural effusion or pneumothorax. Prominence of bilateral lung markings likely accentuated by low lung volumes. There is a comminuted slightly displaced fracture at the distal end of the right clavicle, new since last exam and apparently acute with no surrounding callus. No other acute bony abnormality. IMPRESSION: 1. No evidence for acute disease in the chest. 2. Likely acute fracture at the distal end of the right clavicle. 3. Interval placement of implanted cardiac device on the left and transvenous lead since last exam. Signed by: Dr. Deven Brenner M.D. on 12/13/2018 9:15 AM Dictated By: DEVEN BRENNER MD 4 Transcribed By: ELLIOT on 12/13/18914 COPY TO: ALEXANDRA WRIGHT MD SHOULDER RIGHT COMPLETE 2018-12-13 09:09:[address] [address] Patient Name: EVERETT MONROE JR MR #: [id number] : 1930 Age/Sex: 87/M Req #: [id number] Adm Physician: Ordered by: ALEXANDRA WRIGHT MD Report #: [id number] Location: ER Room/Bed: Procedure: [id number] DX/SHOULDER RIGHT COMPLETE Exam Date: 12/13/18 Exam Time: 824 REPORT STATUS: Signed EXAM: SHOULDER RIGHT COMPLETE DATE: 12/13/2018 8:00 AM INDICATION: FALL 20181213 COMPARISON: None FINDINGS: 2 views of the right shoulder show a comminuted slightly displaced fracture of the distal end of the right clavicle. Internal and external rotation of the humeral head is demonstrated. There is no dislocation of the glenohumeral joint. There is partial visualization of a likely transvenous cardiac lead. IMPRESSION: Slightly displaced comminuted fracture at the distal end of the right clavicle. Signed by: Dr. Deven Brenner M.D. on 12/13/2018 9:11 AM Dictated By: BELLA BRENNER MD 0 Transcribed By: ELLIOT on 12/13/18910 COPY TO: ALEXANDRA WRIGHT MD CT CERVICAL SPINE WO 2018-12-13 08:56:[address], [place] [address] Patient Name: EVERETT MONROE JR MR #: [id number] : 1930 Age/Sex: 87/M Req #: [id number] [facility] Physician: Ordered by: ALEXANDRA WRIGHT MD Report #: [id number] Location: ER Room/Bed: Procedure: [id number] CT/CT CERVICAL SPINE WO Exam Date: 12/13/18 Exam Time: 0800 REPORT STATUS: Signed Examination: CT CERVICAL SPINE WITHOUT CONTRAST HISTORY:Fall with neck injury. COMPARISON:None. TECHNIQUE: Multidetector helical axial images were obtained without contrast from the foramen magnum to T1. Coronal and sagittal reformatted images were done. Bone and soft tissue windows were evaluated. Dose modulation, iterative reconstruction, and/or weight based adjustment of the mA/kV was utilized to reduce the radiation dose to as low as reasonably achievable. FINDINGS: Alignment:Normal alignment with straightening of normal lordosis. Vertebrae: Normal height and density. No acute fracture, infection or neoplasm. Disc space heights: Moderate to severe narrowing from C4 through T1. Caliber of spinal canal: Developmentally normal. Posterior fossa and craniocervical junction: Foramen magnum patent. No Chiari 1 malformation. Soft tissues: No abnormality. Degenerative changes: Right facet arthropathy from C2-C3 through C4-C5. Diffuse disc osteophyte complex from C4- C5 through C6-C7 without canal stenosis. Visualized lung apices: No abnormalities. IMPRESSION: No acute abnormalities. Signed by: Dr. Nicholas Acevedo M.D. on 12/13/2018 9:02 AM Dictated By: NICHOLAS SÁNCHEZ MD 1 Transcribed By: ELLIOT on 05/15/19 0902 COPY TO: ALEXANDRA WRIGHT MD CT BRAIN WO 2018-12-13 08:52:[address] [address] Patient Name: EVERETT MONROE JR MR #: [id number] : 1930 Age/Sex: 87/M Req #: [id number] Adm Physician: Ordered by: ALEXANDRA WRIGHT MD Report #: [id number] Location: ER Room/Bed: Procedure: [id number] CT/CT BRAIN WO Exam Date: 12/13/18 Exam Time: 0800 REPORT STATUS: Signed Examination: CT head without contrast Clinical Indication: Fall out of bed. Head injury. Technique: Transaxial noncontrast images from the skull base through the vertex were obtained. Sagittal and coronal reformatted images were done. Dose modulation, iterative reconstruction, and/or weight based adjustment of the mA/kV was utilized to reduce the radiation dose to as low as reasonably achievable. Comparison: None. Findings: Scalp: No abnormalities. Bones: Intact. No fractures. No blastic or lytic lesions. Brain sulci: Appropriate for patient's age. Ventricles: Moderate volume loss for patient's age. No hydrocephalus. . Extra-axial space: No abnormalities. Parenchyma: There are confluent and patchy areas of low-attenuation within subcortical and periventricular white matter, nonspecific, but could represent microvascular ischemic disease. No masses, hemorrhage, or acute or chronic cortical based vascular insults. Suprasellar region: No abnormalities. Craniocervical junction: The foramen magnum is patent. No Chiari one malformation. Incidental findings: Atherosclerotic calcification of the cavernous and supraclinoid internal carotid and V4 segments of the bilateral vertebral a rteries. 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 Impression: 1. No acute intracranial finding. 2. Moderate to severe chronic microvascular ischemic change and volume loss. Signed by: Dr. Nicholas Acevedo M.D. on 12/13/2018 8:55 AM Dictated By: NICHOLAS SÁNCHEZ MD 4 Transcribed By: ELLIOT on 12/13/18854 COPY TO: ALEXANDRA WRIGHT MD CT ABDOMEN/PELVIS WOW 2018-10-23 20:22:00 [address] [address] Patient Name: EVERETT MONROE JR MR #: [id number] : 1930 Age/Sex: 87/M Req #: [id number] Adm Physician: Ordered by: DEVEN HOLCOMB MD Report #: [id number] Location: ER Room/Bed: Procedure: [id number] CT/CT ABDOMEN/PELVIS WOW Exam Date: 10/23/18 Exam Time: 1937 REPORT STATUS: Signed EXAM: CT Abdomen and Pelvis WITHOUT and WITH contrast INDICATION: Bleeding from penis hematuria protocol [id number] Y COMPARISON: None. TECHNIQUE: Abdomen and pelvis were scanned utilizing a multidetector helical scanner from the lung base to the pubic symphysis after administration of IV contrast. Coronal and sagittal reformations were obtained. Hematuria protocol was performed. Scan was performed pre- in supine position and nephrogenic/excretory phase with a 10 minute split bolus in prone position. IV CONTRAST: 150 mL of Isovue 370 ORAL CONTRAST: Water COMPLICATIONS: None RADIATION DOSE: Total DLP: 718 mGy*cm Estimated effective dose: (DLP x 0.015 x size factor) mSv CTDIvol has been reviewed. It is below the limits set by the Radiation Protocol Committee (RPC). FINDINGS: LINES and TUBES: Distal portion of AICD wire noted in the right ventricle. LOWER THORAX: Mild bilateral lower lobe subpleural reticulation, suggesting fibrotic changes. Mild bronchial wall thickening in bilateral lower lobes, which may be the sequela of chronic bronchitis. Moderate to marked cardiomegaly. Atherosclerotic calcification of the coronary arteries and thoracic aorta. HEPATOBILIARY: No focal hepatic lesions. No biliary ductal dilation. GALLBLADDER: Not visualized. No wall thickening. SPLEEN: No splenomegaly. PANCREAS: No focal masses or ductal dilatation. ADRENALS: Thickening of the left adrenal gland (series 6, image 34), which may be due to hyperplasia. Right adrenal gland is unremarkable. KIDN EYS/URETERS: Kidneys: Symmetrical renal enhancement. No hydronephrosis or perinephric stranding. Cyst: 1.8 cm fluid density simple cyst in the left superior pole (series 6, image 28). 6 mm hypodense lesions in the left interpolar and mid to inferior kidney (series 6, image 47 and 53), which are too small to characterize but likely represent small cysts. Mass: None. Stones: 4 mm nonobstructing calculus in the right superior pole (series 3, image 39). No other renal or ureteral calculi. Upper collecting systems: No irregularities or filling defects. Ureters: The proximal and most distal portions of the right ureter are opacified. The proximal and distal left ureter are opacified. No filling defects, strictures or extrinsic locations. No definite urothelial thickening. Bladder: Bladder is unremarkable, without focal lesions or wall thickening. GI TRACT: No bowel dilation or evidence of obstruction. PELVIC ORGANS/BLADDER: Prostate is enlarged. LYMPH NODES: No lymphadenopathy. VESSELS: Moderate atherosclerotic calcification of the abdominal aorta and iliac vessels. PERITONEUM / RETROPERITONEUM: No free air or fluid. BONES: No aggressive lesions. Degenerative disc changes in the lumbosacral spine, predominantly at L2-L3. Facet hypertrophy L5-S1. SOFT TISSUES: Small fat-containing right inguinal hernia. IMPRESSION: 1. 4 mm nonobstructing calculus in the right superior pole. No other renal or any ureteral or bladder calculi. No hydronephrosis or obstruction. No filling defects in the opacified portions of the genitourinary tract. 2. Moderate to marked cardiomegaly. Mild bilateral lower lobe fibrotic changes, with likely sequela of chronic bronchitis. 3. Enlarged prostate, likely due to BPH. Signed by: Dr. Bijan Atwood M.D. on 10/23/2018 8:37 PM Dictated By: BIJAN ATWOOD MD 36 Transcribed By: ELLIOT on 10/23/182036 COPY TO: DEVEN HOLCOMB MD Urine WBC 2018-10-23 18:01:00 Test Item Urine WBC (test code = 5821-4) [facility]ONE 0-5 [facility] [id number] 18:01:00* Test Item Value Reference Range Interpretation Comments Urine RBC (test code = 09248-4) 11-20 0-5 [facility] [id number] 18:01:00* Test Item Value Reference Range Interpretation Comments Urine Bacteria (test code = 08009-6) MODERATE NONE [facility] Epithelial [id number] 18:01:00 * Test Item Value Reference Range Interpretation Comments Urine Epithelial Cells (test code = 86219-1) FEW NONE [facility] [id number] 18:01:00* Test Item Value Reference Range Interpretation Comments Urine Mucus (test code = 8247-9) FEW RARE H [facility] [id number] 18:01:00* Test Item Value Reference Range Interpretation Comments Urine WBC (test code = 5821-4) NONE 0-5 [facility] [id number] 18:01:00* Test Item Value Reference Range Interpretation Comments Urine RBC (test code = 61774-8) 11-20 0-5 [facility] [id number] 18:01:00* Test Item Value Reference Range Interpretation Comments Urine Bacteria (test code = 98835-2) MODERATE NONE [facility] Epithelial [id number] 18:01:00 * Test Item Value Reference Range Interpretation Comments Urine Epithelial Cells (test code = 07958-3) FEW NONE [facility] [id number] 18:01:00* Test Item Value Reference Range Interpretation Comments Urine Mucus (test code = 8247-9) FEW RARE H [facility] [id number] 17:51:00* Test Item Value Reference Range Interpretation Comments Urine Color (test code = 5778-6) YELLOW YELLOW [facility] [id number] 17:51:00* Test Item Value Reference Range Interpretation Comments Urine Clarity (test code = 01288-9) SL CLOUDY CLEAR H [facility] Specific [id number] 17:51:00 * Test Item Value Reference Range Interpretation Comments Urine Specific [place] (test code = 5811-5) 1.015 1.010-1.02 5 [facility] [id number] 17:51:00* Test Item Value Reference Range Interpretation Comments Urine pH (test code = 57919-9) 7 5-7 [facility] Leukocyte [id number] 17:51:00* Test Item Value Reference Range Interpretation Comments Urine Leukocyte Esterase (test code = 5799-2) NEGATIVE NEGATIVE [facility] [id number] 17:51:00* Test Item Value Reference Range Interpretation Comments Urine Nitrite (test code = 13497-5) NEGATIVE NEGATIVE [facility] [id number] 17:51:00* Test Item Value Reference Range Interpretation Comments Urine Protein (test code = 5804-0) TRACE NEGATIVE H [facility] Glucose (UA)2018-10-23 17:51:00* Test Item Value Reference Range Interpretation Comments Urine Glucose (UA) (test code = 2349-9) NEGATIVE NEGATIVE [facility] [id number] 17:51:00* Test Item Value Reference Range Interpretation Comments Urine Ketones (test code = 54989-3) NEGATIVE NEGATIVE [facility] [id number] 17:51:00* Test Item Value Reference Range Interpretation Comments Urine Urobilinogen (test code = 80925-0) 0.2 0.2-1 [facility] [id number] 17:51:00* Test Item Value Reference Range Interpretation Comments Urine Bilirubin (test code = 1978-6) NEGATIVE NEGATIVE [facility] [id number] 17:51:00* Test Item Value Reference Range Interpretation Comments Urine Blood (test code = 10563-7) 1+ NEGATIVE H [facility] [id number] 17:51:00* Test Item Value Reference Range Interpretation Comments Urine Color (test code = 5778-6) YELLOW YELLOW [facility] [id number] 17:51:00* Test Item Value Reference Range Interpretation Comments Urine Clarity (test code = 37321-4) SL CLOUDY CLEAR H [facility] Specific [id number] 17:51:00 * Test Item Value Reference Range Interpretation Comments Urine Specific [place] (test code = 5811-5) 1.015 1.010-1.02 5 [facility] HospitalU[facility] kD0021-55-50 17:51:00* Test Item Value Reference Range Interpretation Comments Urine pH (test code = 94351-0) 7 5-7 [facility] Leukocyte Zxgrmbjn9096-88-24 17:51:00* Test Item Value Reference Range Interpretation Comments Urine Leukocyte Esterase (test code = 5799-2) NEGATIVE NEGATIVE [facility] Mynbchp0921-18-41 17:51:00* Test Item Value Reference Range Interpretation Comments Urine Nitrite (test code = 70763-9) NEGATIVE NEGATIVE [facility] Rgnxzpg2924-50-27 17:51:00* Test Item Value Reference Range Interpretation Comments Urine Protein (test code = 5804-0) TRACE NEGATIVE H [facility] Glucose (UA)2018-10-23 17:51:00* Test Item Value Reference Range Interpretation Comments Urine Glucose (UA) (test code = 2349-9) NEGATIVE NEGATIVE [facility] Eoordha7336-05-36 17:51:00* Test Item Value Reference Range Interpretation Comments Urine Ketones (test code = 05142-9) NEGATIVE NEGATIVE [facility] Ncyxrtfuqdkk8361-45-94 17:51:00* Test Item Value Reference Range Interpretation Comments Urine Urobilinogen (test code = 60094-6) 0.2 0.2-1 [facility] Odihewoth5323-54-25 17:51:00* Test Item Value Reference Range Interpretation Comments Urine Bilirubin (test code = 1978-6) NEGATIVE NEGATIVE [facility] Qbpov2121-42-29 17:51:00* Test Item Value Reference Range Interpretation Comments Urine Blood (test code = 21222-0) 1+ [facility]GATIVE [facility] Xjseg1653-43-65 17:19:00* Test Item Value Reference Range Interpretation Comments Sodium Level (test code = 2951-2) 137 136-145 [facility]Potassium Rccup8393-44-02 17:19:00* Test Item Value Reference Range Interpretation Comments Potassium Level (test code = 2823-3) 4.5 3.5-5.1 [facility] HospitalChloride Hhjur8112-05-77 17:19:00* Test Item Value Reference Range Interpretation Comments Chloride Level (test code = 2075-0) 103 98-107 [facility] HospitalCarbon Dioxide Eccbe1212-22-08 17:19:00* Test Item Value Reference Range Interpretation Comments Carbon Dioxide Level (test code = 2028-9) 28 22-29 [facility] HospitalAnion Wjl6615-09-89 17:19:00* Test Item Value Reference Range Interpretation Comments Anion Gap (test code = 18786-7) 10.5 8-16 [facility] HospitalBlood Urea Otajpykc2349-68-79 17:19:00* Test Item Value Reference Range Interpretation Comments Blood Urea Nitrogen (test code = 3094-0) 23 7-26 [facility] HospitalCreatinine2019-03-25 17:19:00* Test Item Value Reference Range Interpretation Comments Creatinine (test code = 2160-0) 1.16 0.72-1.25 [facility] HospitalBUN/Creatinine Yaiuz9638-34-22 17:19:00* Test Item Value Reference Range Interpretation Comments BUN/Creatinine Ratio (test code = 3097-3) 20 6-25 [facility] HospitalEstimat Glomerular Filtration Rate 2018-10-23 17:19:00* Test Item Value Reference Range Interpretation Comments Estimat Glomerular Filtration Rate (test code = 812008115) 60 >60 Ranges were taken from the National Kidney Disease Education Program and the [facility] literature.Reference ranges:60 or greater: Xcphjb81-82 ( for 3 consecutive months): Chronic kidney disease 15 or less: Kidney failureWilbarger General HospitalGlucose Odxkm2074-98-90 17:19:00* Test Item Value Reference Range Interpretation Comments Glucose Level (test code = ZKT7169) 101 74-118 [facility] HospitalCalcium Dodjf8790-47-09 17:19:00* Test Item Value Reference Range Interpretation Comments Calcium Level (test code = 84797-3) 9.2 8.4-10.2 [facility] HospitalTotal Axfvnksuo8403-08-14 17:19:00* Test Item Value Reference Range Interpretation Comments Total Bilirubin (test code = 1975-2) 0.9 0.2-1.2 [facility] HospitalAspartate Amino Transf (AST/SGOT) 2018-10-23 17:19:00* Test Item Value Reference Range Interpretation Comments Aspartate Amino Transf (AST/SGOT) (test code = Aspartate Amino Transf (AST/SGOT)) 21 5-34 [facility] HospitalAlanine Aminotransferase (ALT/SGPT) 2018-10-23 17:19:00* Test Item Value Reference Range Interpretation Comments Alanine Aminotransferase (ALT/SGPT) (test code = 1742-6) 8 0-55 [facility] HospitalTotal Nhxymcq0329-69-57 17:19:00* Test Item Value Reference Range Interpretation Comments Total Protein (test code = 2885-2) 7.5 6.5-8.1 [facility] HospitalAlbumin2019-03-25 17:19:00* Test Item Value Reference Range Interpretation Comments Albumin (test code = 1751-7) 3.5 3.5-5.0 [facility] HospitalGlobulin2019-03-25 17:19:00* Test Item Value Reference Range Interpretation Comments Globulin (test code = 94414-1) 4.0 2.3-3.5 H [facility] HospitalAlbumin/Globulin Nvwfc6909-22-01 17:19:00 * Test Item Value Reference Range Interpretation Comments Albumin/Globulin Ratio (test code = 1759-0) 0.9 0.8-2.0 [facility] HospitalAlkaline Bzfkoxbohqy4178-87-91 17:19:00* Test Item Value Reference Range Interpretation Comments Alkaline Phosphatase (test code = 6768-6) 134 40-150 [facility] Ywxrl5590-62-86 17:19:00* Test Item Value Reference Range Interpretation Comments Sodium Level (test code = 2951-2) 137 136-145 [facility] HospitalPotassium Lrwbs5415-66-73 17:19:00* Test Item Value Reference Range Interpretation Comments Potassium Level (test code = 2823-3) 4.5 3.5-5.1 [facility] HospitalChloride Vnvjh6087-24-64 17:19:00* Test Item Value Reference Range Interpretation Comments Chloride Level (test code = 2075-0) 103 98-107 [facility] HospitalCarbon Dioxide Csaql8137-43-83 17:19:00* Test Item Value Reference Range Interpretation Comments Carbon Dioxide Level (test code = 2028-9) 28 22-29 [facility] HospitalAnion Ubn1140-26-37 17:19:00* Test Item Value Reference Range Interpretation Comments Anion Gap (test code = 35912-2) 10.5 8-16 [facility] HospitalBlood Urea Ftsdutiq5540-58-82 17:19:00* Test Item Value Reference Range Interpretation Comments Blood Urea Nitrogen (test code = 3094-0) 23 7-26 [facility] HospitalCreatinine2019-03-25 17:19:00* Test Item Value Reference Range Interpretation Comments Creatinine (test code = 2160-0) 1.16 0.72-1.25 [facility] HospitalBUN/Creatinine Bpuok1655-56-79 17:19:00* Test Item Value Reference Range Interpretation Comments BUN/Creatinine Ratio (test code = 3097-3) 20 6-25 [facility] HospitalEstimat Glomerular Filtration Rate 2018-10-23 17:19:00* Test Item Value Reference Range Interpretation Comments Estimat Glomerular Filtration Rate (test code = 779411915) 60 >60 Ranges were taken from the National Kidney Disease Education Program and the [facility] literature.Reference ranges:60 or greater: Pwjwtw20-17 ( for 3 consecutive months): Chronic kidney disease 15 or less: Kidney failureWilbarger General HospitalGlucose Xrtad9539-36-37 17:19:00* Test Item Value Reference Range Interpretation Comments Glucose Level (test code = KEW3442) 101 74-118 [facility] HospitalCalcium Ufnmm7261-62-07 17:19:00* Test Item Value Reference Range Interpretation Comments Calcium Level (test code = 83528-6) 9.2 8.4-10.2 [facility] HospitalTotal Deohpegen3191-15-46 17:19:00* Test Item Value Reference Range Interpretation Comments Total Bilirubin (test code = 1975-2) 0.9 0.2-1.2 [facility] HospitalAspartate Amino Transf (AST/SGOT) 2018-10-23 17:19:00* Test Item Value Reference Range Interpretation Comments Aspartate Amino Transf (AST/SGOT) (test code = Aspartate Amino Transf (AST/SGOT)) 21 5-34 [facility] HospitalAlanine Aminotransferase (ALT/SGPT) 2018-10-23 17:19:00* Test Item Value Reference Range Interpretation Comments Alanine Aminotransferase (ALT/SGPT) (test code = 1742-6) 8 0-55 [facility] HospitalTotal Omlxewb4148-34-97 17:19:00* Test Item Value Reference Range Interpretation Comments Total Protein (test code = 2885-2) 7.5 6.5-8.1 [facility] HospitalAlbumin2019-03-25 17:19:00* Test Item Value Reference Range Interpretation Comments Albumin (test code = 1751-7) 3.5 3.5-5.0 [facility] HospitalGlobulin2019-03-25 17:19:00* Test Item Value Reference Range Interpretation Comments Globulin (test code = 66120-4) 4.0 2.3-3.5 H [facility] HospitalAlbumin/Globulin Xivwz0697-41-72 17:19:00 * Test Item Value Reference Range Interpretation Comments Albumin/Globulin Ratio (test code = 1759-0) 0.9 0.8-2.0 [facility] HospitalAlkaline Exdrqvkcbbg5710-34-61 17:19:00* Test Item Value Reference Range Interpretation Comments Alkaline Phosphatase (test code = 6768-6) 134 40-150 [facility] HospitalWhite Blood Qtmca6749-00-57 17:14:00* Test Item Value Reference Range Interpretation Comments White Blood Count (test code = 6690-2) 7.51 4.8-10.8 [facility] HospitalRed Blood Edqda4788-80-52 17:14:00* Test Item Value Reference Range Interpretation Comments Red Blood Count (test code = 789-8) 4.58 4.3-5.7 [facility] HospitalHemoglobin2019-03-25 17:14:00* Test Item Value Reference Range Interpretation Comments Hemoglobin (test code = 01032-6) 13.8 14.0-18.0 L [facility] HospitalHematocrit2019-03-25 17:14:00* Test Item Value Reference Range Interpretation Comments Hematocrit (test code = 4544-3) 42.9 38.2-49.6 [facility] HospitalMean Corpuscular Muekpo8281-83-29 17:14:00* Test Item Value Reference Range Interpretation Comments Mean Corpuscular Volume (test code = 787-2) 93.7 81-99 [facility] HospitalMean Corpuscular Cftusqlidv4222-54-18 17:14:00* Test Item Value Reference Range Interpretation Comments Mean Corpuscular Hemoglobin (test code = 785-6) 30.1 28-32 [facility] HospitalMean Corpuscular Hemoglobin Concent 2018-10-23 17:14:00* Test Item Value Reference Range Interpretation Comments Mean Corpuscular Hemoglobin Concent (test code = 786-4) 32.2 31-35 [facility] HospitalRed Cell Distribution Mshve4508-48-80 17:14:00* Test Item Value Reference Range Interpretation Comments Red Cell Distribution Width (test code = 11226-8) 15.2 11.7 -14.4 H [facility] HospitalPlatelet Iipav3069-54-60 17:14:00* Test Item Value Reference Range Interpretation Comments Platelet Count (test code = 777-3) 197 140-360 [facility] HospitalNeutrophils (%) (Auto)2018-10-23 17:14:00 * Test Item Value Reference Range Interpretation Comments Neutrophils (%) (Auto) (test code = 63144-3) 63.8 38.7-80.0 [facility] HospitalLymphocytes (%) (Auto)2018-10-23 17:14:00 * Test Item Value Reference Range Interpretation Comments Lymphocytes (%) (Auto) (test code = 736-9) 12.9 18.0-39.1 L [facility] HospitalMonocytes (%) (Auto)2018-10-23 17:14:00* Test Item Value Reference Range Interpretation Comments Monocytes (%) (Auto) (test code = 5905-5) 13.4 4.4-11.3 H [facility] HospitalEosinophils (%) (Auto)2018-10-23 17:14:00 * Test Item Value Reference Range Interpretation Comments Eosinophils (%) (Auto) (test code = 713-8) 8.7 0.0-6.0 H [facility] HospitalBasophils (%) (Auto)2018-10-23 17:14:00* Test Item Value Reference Range Interpretation Comments Basophils (%) (Auto) (test code = 706-2) 0.9 0.0-1.0 [facility] HospitalIM GRANULOCYTES %2018-10-23 17:14:00* Test Item Value Reference Range Interpretation Comments IM GRANULOCYTES % (test code = IM GRANULOCYTES %) 0.3 0.0- 1.0 [facility] HospitalNeutrophils # (Auto)2018-10-23 17:14:00* Test Item Value Reference Range Interpretation Comments Neutrophils # (Auto) (test code = 751-8) 4.8 2.1-6.9 [facility] HospitalLymphocytes # (Auto)2018-10-23 17:14:00* Test Item Value Reference Range Interpretation Comments Lymphocytes # (Auto) (test code = 18743-9) 1.0 1.0-3.2 [facility] HospitalMonocytes # (Auto)2018-10-23 17:14:00* Test Item Value Reference Range Interpretation Comments Monocytes # (Auto) (test code = 742-7) 1.0 0.2-0.8 H [facility] HospitalEosinophils # (Auto)2018-10-23 17:14:00* Test Item Value Reference Range Interpretation Comments Eosinophils # (Auto) (test code = 711-2) 0.7 0.0-0.4 H [facility] HospitalBasophils # (Auto)2018-10-23 17:14:00* Test Item Value Reference Range Interpretation Comments Basophils # (Auto) (test code = 704-7) 0.1 0.0-0.1 [facility] HospitalAbsolute Immature Granulocyte (auto 2018-10-23 17:14:00* Test Item Value Reference Range Interpretation Comments Absolute Immature Granulocyte (auto (dayna t code = Absolute Immature Granulocyte (auto) 0.02 0-0.1 [facility] HospitalProthrombin Rjos4256-24-00 17:14:00* Test Item Value Reference Range Interpretation Comments Prothrombin Time (test code = 5902-2) 13.3 11.9-14.5 [facility] HospitalProthromb Time International Ratio 2018-10-23 17:14:00* Test Item Value Reference Range Interpretation Comments Prothromb Time International Ratio (test code = 6301-6) 0.96 Oral Anticoagulant Therapy INR Values:1. Low Intensity Therapy 1.5 - 2.02 . Moderate Intensity Therapy 2.0 - 3.03. High Intensity Therapy(1) 2.5 - 3. 54. High Intensity Therapy(2) 3.0 - 4.05. Panic Value INR > 5.0 [facility] HospitalActivated Partial Thromboplast Time 2018-10-23 17:14:00* Test Item Value Reference Range Interpretation Comments Activated Partial Thromboplast Time (test code = 49253-5) 42.2 23.8-35.5 H [facility] HospitalWhite Blood Iyclt1168-42-33 17:14:00* Test Item Value Reference Range Interpretation Comments White Blood Count (test code = 6690-2) 7.51 4.8-10.8 [facility] HospitalRed Blood Clone6045-97-68 17:14:00* Test Item Value Reference Range Interpretation Comments Red Blood Count (test code = 789-8) 4.58 4.3-5.7 [facility] HospitalHemoglobin2019-03-25 17:14:00* Test Item Value Reference Range Interpretation Comments Hemoglobin (test code = 70237-6) 13.8 14.0-18.0 L [facility] HospitalHematocrit2019-03-25 17:14:00* Test Item Value Reference Range Interpretation Comments Hematocrit (test code = 4544-3) 42.9 38.2-49.6 [facility] HospitalMean Corpuscular Rdegle4486-77-87 17:14:00* Test Item Value Reference Range Interpretation Comments Mean Corpuscular Volume (test code = 787-2) 93.7 81-99 [facility] HospitalMean Corpuscular Fihhfmzdmv9773-91-56 17:14:00* Test Item Value Reference Range Interpretation Comments Mean Corpuscular Hemoglobin (test code = 785-6) 30.1 28-32 [facility] Corp[facility] Hemoglobin Concent 2018-10-23 17:14:00* Test Item Value Reference Range Interpretation Comments Mean Corpuscular Hemoglobin Concent (test code = 786-4) 32.2 31-35 [facility] HospitalRed Cell Distribution Fdmjt3292-71-26 17:14:00* Test Item Value Reference Range Interpretation Comments Red Cell Distribution Width (test code = 49259-1) 15.2 11.7 -14.4 H [facility] HospitalPlatelet Vqpzb4252-16-55 17:14:00* Test Item Value Reference Range Interpretation Comments Platelet Count (test code = 777-3) 197 140-360 [facility] HospitalNeutrophils (%) (Auto)2018-10-23 17:14:00 * Test Item Value Reference Range Interpretation Comments Neutrophils (%) (Auto) (test code = 69116-7) 63.8 38.7-80.0 [facility] HospitalLymphocytes (%) (Auto)2018-10-23 17:14:00 * Test Item Value Reference Range Interpretation Comments Lymphocytes (%) (Auto) (test code = 736-9) 12.9 18.0-39.1 L [facility] HospitalMonocytes (%) (Auto)2018-10-23 17:14:00* Test Item Value Reference Range Interpretation Comments Monocytes (%) (Auto) (test code = 5905-5) 13.4 4.4-11.3 H [facility] HospitalEosinophils (%) (Auto)2018-10-23 17:14:00 * Test Item Value Reference Range Interpretation Comments Eosinophils (%) (Auto) (test code = 713-8) 8.7 0.0-6.0 H [facility] HospitalBasophils (%) (Auto)2018-10-23 17:14:00* Test Item Value Reference Range Interpretation Comments Basophils (%) (Auto) (test code = 706-2) 0.9 0.0-1.0 [facility] HospitalIM GRANULOCYTES %2018-10-23 17:14:00* Test Item Value Reference Range Interpretation Comments IM GRANULOCYTES % (test code = IM GRANULOCYTES %) 0.3 0.0- 1.0 [facility] HospitalNeutrophils # (Auto)2018-10-23 17:14:00* Test Item Value Reference Range Interpretation Comments Neutrophils # (Auto) (test code = 751-8) 4.8 2.1-6.9 [facility] HospitalLymphocytes # (Auto)2018-10-23 17:14:00* Test Item Value Reference Range Interpretation Comments Lymphocytes # (Auto) (test code = 14056-8) 1.0 1.0-3.2 [facility] HospitalMonocytes # (Auto)2018-10-23 17:14:00* Test Item Value Reference Range Interpretation Comments Monocytes # (Auto) (test code = 742-7) 1.0 0.2-0.8 H [facility] HospitalEosinophils # (Auto)2018-10-23 17:14:00* Test Item Value Reference Range Interpretation Comments Eosinophils # (Auto) (test code = 711-2) 0.7 0.0-0.4 H [facility] HospitalBasophils # (Auto)2018-10-23 17:14:00* Test Item Value Reference Range Interpretation Comments Basophils # (Auto) (test code = 704-7) 0.1 0.0-0.1 [facility] HospitalAbsolute Immature Granulocyte (auto 2018-10-23 17:14:00* Test Item Value Reference Range Interpretation Comments Absolute Immature Granulocyte (auto (dayna t code = Absolute Immature Granulocyte (auto) 0.02 0-0.1 [facility] HospitalProthrombin Gpmz9726-47-79 17:14:00* Test Item Value Reference Range Interpretation Comments Prothrombin Time (test code = 5902-2) 13.3 11.9-14.5 [facility] HospitalProthromb Time International Ratio 2018-10-23 17:14:00* Test Item Value Reference Range Interpretation Comments Prothromb Time International Ratio (test code = 6301-6) 0.96 Oral Anticoagulant Therapy INR Values:1. Low Intensity Therapy 1.5 - 2.02 . Moderate Intensity Therapy 2.0 - 3.03. High Intensity Therapy(1) 2.5 - 3. 54. High Intensity Therapy(2) 3.0 - 4.05. Panic Value INR > 5.0 [facility] HospitalActivated Partial Thromboplast Time 2018-10-23 17:14:00* Test Item Value Reference Range Interpretation Comments Activated Partial Thromboplast Time (test code = 71514-0) 42.2 23.8-35.5 [facility]2018-03-22 18:15:00 [facility] [address] [address] Patient Name: EVERETT MONROE JR MR #: [id number] : 1930 Age/Sex: 87/M Req #: [id number] Adm Physician: NEIL GUZMAN MD Ordered by: RANDA MUÑIZ MD Report #: [id number] Location: MED/SURG2 Room/Bed: [facility] Procedure: [id number] DX/CHEST SINGLE (PORTABLE) Exam Date: 03/22/18 Exam Time: 1716 REPORT STATUS: Signed PROCEDURE: CHEST SINGLE (PORTAB LE) COMPARISON: [facility], DX, CHEST 2 VIEWS, 03/18/2018, 18:2 5. INDICATIONS: POST PACEMAKER SURGERY FINDINGS: LUNGS: No conso lidations or edema. PLEURA: No effusions or pneumothorax. HEART T MEDIASTINUM: AICD lead terminates in the right ventricle. There is a le ft chest wall. The heart is within normal size-limits. Stable aortic ectasia and arch calcifications. BONES T SOFT TISSUES: No acute findings. Ent maddy contrast in the splenic flexure of the colon has diminished. C ONCLUSION: AICD as described above. No pneumothorax. No new cardiopulmo nary process. Dictated by: Davin Brizuela M.D. on 03/22/2018 at 18:1 5 Electronically approved by: Davin Brizuela M.D. on 03/22/2018 at 1 8:15 Dictated By: DAVIN BRIZUELA MD 14 Transcribed By: MEDINA on 03/22/181814 COPY TO: RANDA MUÑIZ MD Bedside Uulbhpt6382-73-70 19:49:00* Test Item Value Reference Range Interpretation Comments Bedside Glucose (test code = 43293-6) 164 70-120 H Meter ID: [id number] [facility] Glucose 2018-03-21 19:49:00* Test Item Value Reference Range Interpretation Comments Bedside Glucose (test code = 60358-4) 164 70-120 H Meter ID: [id number] Glucose 2018-03-21 19:49:00* Test Item Value Reference Range Interpretation Comments Bedside Glucose (test code = 67276-3) 164 70-120 H Meter ID: [id number] [facility] 2018-03-20 05:57:00* Test Item Value Reference Range Interpretation Comments Sodium Level (test code = 2951-2) 136 136-145 [facility] HospitalPotassium Bilwl5276-89-67 05:57:00* Test Item Value Reference Range Interpretation Comments Potassium Level (test code = 2823-3) 3.6 3.5-5.1 [facility] HospitalChloride Vvelu1559-09-59 05:57:00* Test Item Value Reference Range Interpretation Comments Chloride Level (test code = 2075-0) 98 98-107 [facility] HospitalCarbon Dioxide Ghtue5522-34-24 05:57:00* Test Item Value Reference Range Interpretation Comments Carbon Dioxide Level (test code = 2028-9) 29 22-29 [facility] HospitalAnion Fnr3408-56-45 05:57:00* Test Item Value Reference Range Interpretation Comments Anion Gap (test code = 49856-0) 12.6 8-16 [facility] HospitalBlood Urea Ogiivyjm2106-07-85 05:57:00* Test Item Value Reference Range Interpretation Comments Blood Urea Nitrogen (test code = 3094-0) 27 7-26 H [facility] HospitalCreatinine2018-08-20 05:57:00* Test Item Value Reference Range Interpretation Comments Creatinine (test code = 2160-0) 1.29 0.72-1.25 H [facility] HospitalBUN/Creatinine Utiur0997-16-93 05:57:00* Test Item Value Reference Range Interpretation Comments BUN/Creatinine Ratio (test code = 3097-3) 21 6-25 [facility] HospitalEstimat Glomerular Filtration Rate 2018-03-20 05:57:00* Test Item Value Reference Range Interpretation Comments Estimat Glomerular Filtration Rate (test code = 36014-5) 53 >60 L Ranges were taken from the National Kidney Disease Education Program and the [facility] literature.Reference ranges:60 or greater: Uhlwhh81-74 ( for 3 consecutive months): Chronic kidney disease 15 or less: Kidney failureWilbarger General HospitalGlucose Lwtdg9933-17-01 05:57:00* Test Item Value Reference Range Interpretation Comments Glucose Level (test code = SMY1085) 97 74-118 [facility] HospitalCalcium Eojwn5091-21-46 05:57:00* Test Item Value Reference Range Interpretation Comments Calcium Level (test code = 91038-8) 9.0 8.4-10.2 [facility] HospitalProthrombin Jids2726-20-96 05:51:00* Test Item Value Reference Range Interpretation Comments Prothrombin Time (test code = 5902-2) 14.2 11.9-14.5 [facility] HospitalProthromb Time International Ratio 2018-03-20 05:51:00* Test Item Value Reference Range Interpretation Comments Prothromb Time International Ratio (test code = 6301-6) 1.19 Oral Anticoagulant Therapy INR Values:1. Low Intensity Therapy 1.5 - 2.02 . Moderate Intensity Therapy 2.0 - 3.03. High Intensity Therapy(1) 2.5 - 3. 54. High Intensity Therapy(2) 3.0 - 4.05. Panic Value INR > 5.0 [facility] HospitalActivated Partial Thromboplast Time 2018-03-20 05:51:00* Test Item Value Reference Range Interpretation Comments Activated Partial Thromboplast Time (test code = 55887-4) 39.0 23.8-35.5 H [facility] HospitalWhite Blood Afzyk3231-71-22 05:43:00* Test Item Value Reference Range Interpretation Comments White Blood Count (test code = 6690-2) 8.66 4.8-10.8 [facility] HospitalRed Blood Pthma9861-54-59 05:43:00* Test Item Value Reference Range Interpretation Comments Red Blood Count (test code = 789-8) 4.75 4.3-5.7 [facility] HospitalHemoglobin2018-08-20 05:43:00* Test Item Value Reference Range Interpretation Comments Hemoglobin (test code = 53376-2) 14.6 14.0-18.0 [facility] HospitalHematocrit2018-08-20 05:43:00* Test Item Value Reference Range Interpretation Comments Hematocrit (test code = 4544-3) 43.2 38.2-49.6 [facility] HospitalMean Corpuscular Yoioib0284-93-82 05:43:00* Test Item Value Reference Range Interpretation Comments Mean Corpuscular Volume (test code = 787-2) 90.9 81-99 [facility] HospitalMean Corpuscular Aralgcdkyr2024-71-68 05:43:00* Test Item Value Reference Range Interpretation Comments Mean Corpuscular Hemoglobin (test code = 785-6) 30.7 28-32 [facility] HospitalMean Corpuscular Hemoglobin Concent 2018-03-20 05:43:00* Test Item Value Reference Range Interpretation Comments Mean Corpuscular Hemoglobin Concent (test code = 786-4) 33.8 31-35 [facility] HospitalRed Cell Distribution Xoelf4069-62-00 05:43:00* Test Item Value Reference Range Interpretation Comments Red Cell Distribution Width (test code = 14495-7) 14.8 11.7 -14.4 H [facility] HospitalPlatelet Yeigh4592-29-77 05:43:00* Test Item Value Reference Range Interpretation Comments Platelet Count (test code = 777-3) 175 140-360 [facility] HospitalNeutrophils (%) (Auto)2018-03-20 05:43:00 * Test Item Value Reference Range Interpretation Comments Neutrophils (%) (Auto) (test code = 37529-5) 62.1 38.7-80.0 [facility] HospitalLymphocytes (%) (Auto)2018-03-20 05:43:00 * Test Item Value Reference Range Interpretation Comments Lymphocytes (%) (Auto) (test code = 736-9) 14.4 18.0-39.1 L [facility] HospitalMonocytes (%) (Auto)2018-03-20 05:43:00* Test Item Value Reference Range Interpretation Comments Monocytes (%) (Auto) (test code = 5905-5) 17.4 4.4-11.3 H [facility] HospitalEosinophils (%) (Auto)2018-03-20 05:43:00 * Test Item Value Reference Range Interpretation Comments Eosinophils (%) (Auto) (test code = 713-8) 5.1 0.0-6.0 [facility] HospitalBasophils (%) (Auto)2018-03-20 05:43:00* Test Item Value Reference Range Interpretation Comments Basophils (%) (Auto) (test code = 706-2) 0.8 0.0-1.0 [facility] HospitalIM GRANULOCYTES %2018-03-20 05:43:00* Test Item Value Reference Range Interpretation Comments IM GRANULOCYTES % (test code = IM GRANULOCYTES %) 0.2 0.0- 1.0 [facility] HospitalNeutrophils # (Auto)2018-03-20 05:43:00* Test Item Value Reference Range Interpretation Comments Neutrophils # (Auto) (test code = 751-8) 5.4 2.1-6.9 [facility] HospitalLymphocytes # (Auto)2018-03-20 05:43:00* Test Item Value Reference Range Interpretation Comments Lymphocytes # (Auto) (test code = 06333-4) 1.3 1.0-3.2 [facility] HospitalMonocytes # (Auto)2018-03-20 05:43:00* Test Item Value Reference Range Interpretation Comments Monocytes # (Auto) (test code = 742-7) 1.5 0.2-0.8 H [facility] HospitalEosinophils # (Auto)2018-03-20 05:43:00* Test Item Value Reference Range Interpretation Comments Eosinophils # (Auto) (test code = 711-2) 0.4 0.0-0.4 [facility] HospitalBasophils # (Auto)2018-03-20 05:43:00* Test Item Value Reference Range Interpretation Comments Basophils # (Auto) (test code = 704-7) 0.1 0.0-0.1 [facility] HospitalAbsolute Immature Granulocyte (auto 2018-03-20 05:43:00* Test Item Value Reference Range Interpretation Comments Absolute Immature Granulocyte (auto (dayna t code = Absolute Immature Granulocyte (auto) 0.02 0-0.1 [facility] HospitalCHEST 2 [id number] 19:12:00 [place] [address] Patient Name: EVERETT MONROE JR MR #: [id number] : 1930 Age/Sex: 87/M Req #: [id number] [facility] Physician: NEIL GUZMAN MD Ordered by: CATY VILLASENOR MD Report #: [id number] Lo cation: MED/SURG2 Room/Bed: [facility] Procedure: [id number] 1 DX/CHEST 2 VIEWS Exam Date: 03/18/18 Exam Time: 18 40 REPORT STATUS: Signed EXAMINATION: CHEST 2 VIEWS INDICATIO N: COMPARISON: Chest radiograph 03/16/2018 FIND INGS: PA and lateral views TUBES and LINES: None. LUNGS: Lungs are well inflated. Lungs are clear. There is no evidence of pneumonia or pulmon edwin edema. PLEURA: No pleural effusion or pneumothorax. HEART AND MED IASTINUM: Stable mild enlargement of the cardiac silhouette. Aortic arch calci fications. Tortuous aorta. BONES AND SOFT TISSUES: No acute osseous lesion . Soft tissues are unremarkable. UPPER ABDOMEN: No free air under the di aphragm. Enteric contrast in the splenic flexure. IMPRESSION: No acute thoracic abnormality. Signed by: DR. Brannon Izquierdo MD on 03/18/2018 7:15 PM Dictated By: BRANNON IZQUIERDO MD 14 Transcribed By: ELLIOT on 03/18/181914 COPY TO: CATY VILLASENOR MD Creatine Kinase [id number] 05:51:00* Test Item Value Reference Range Interpretation Comments Creatine Kinase MB (test code = 08242-7) 1.20 0-5.0 [place] [id number] 05:51:00* Test Item Value Reference Range Interpretation Comments Troponin I (test code = IUQ9527) 0.023 0-0.300 [facility] HospitalCreatine Kinase [id number] 05:51:00* Test Item Value Reference Range Interpretation Comments Creatine Kinase MB (test code = 54893-4) 1.20 0-5.0 [place] [id number] 05:51:00* Test Item Value Reference Range Interpretation Comments Troponin I (test code = GSI6317) 0.023 0-0.300 [facility] HospitalCreatine Kinase TL7051-37-94 05:51:00* Test Item Value Reference Range Interpretation Comments Creatine Kinase MB (test code = 85080-1) 1.20 0-5.0 [place] 40933018-08-17 05:51:00* Test Item Value Reference Range Interpretation Comments Troponin I (test code = FZC0346) 0.023 0-0.300 [facility] HospitalCreatine Vgaziy0138-98-96 05:32:00* Test Item Value Reference Range Interpretation Comments Creatine Kinase (test code = 2157-6) 31 30-200 [facility] HospitalCreatine Xhltmq9229-74-45 05:32:00* Test Item Value Reference Range Interpretation Comments Creatine Kinase (test code = 2157-6) 31 30-200 [facility] HospitalCreatine Hnzwof5851-13-14 05:32:00* Test Item Value Reference Range Interpretation Comments Creatine Kinase (test code = 2157-6) 31 30-200 [facility] HospitalTriglycerides Sgddr8851-38-79 05:13:00* Test Item Value Reference Range Interpretation Comments Triglycerides Level (test code = 2571-8) 33 0-149 [facility] HospitalCholesterol Cduec4681-75-95 05:13:00* Test Item Value Reference Range Interpretation Comments Cholesterol Level (test code = 2093-3) 108 0-199 Less than 200 mg/dL Low Qhqz655 - 239 mg/dL Borderline Sfuq766 m g/dl and greater High Risk [facility] HospitalLDL Ngoohhiqynr6833-85-69 05:13:00* Test Item Value Reference Range Interpretation Comments LDL Cholesterol (test code = 2089-1) 36 60-130 L [facility] HospitalHDL Aatzlrsdjhy2144-62-34 05:13:00* Test Item Value Reference Range Interpretation Comments HDL Cholesterol (test code = 2085-9) 65 40-60 H [facility] HospitalCholesterol/HDL Msqnj0066-98-42 05:13:00 * Test Item Value Reference Range Interpretation Comments Cholesterol/HDL Ratio (test code = 9830-1) 1.7 3.9-4.7 L [facility] HospitalTriglycerides Kebii8149-78-90 05:13:00* Test Item Value Reference Range Interpretation Comments Triglycerides Level (test code = 2571-8) 33 0-149 [facility] HospitalCholesterol Mhxtp2473-68-25 05:13:00* Test Item Value Reference Range Interpretation Comments Cholesterol Level (test code = 2093-3) 108 0-199 Less than 200 mg/dL Low Vnjd552 - 239 mg/dL Borderline Ccdh150 m g/dl and greater High Risk [facility] HospitalLDL Trucuzhprpv5019-57-97 05:13:00* Test Item Value Reference Range Interpretation Comments LDL Cholesterol (test code = 2089-1) 36 60-130 L [facility] HospitalHDL Svwioipbzya6592-30-40 05:13:00* Test Item Value Reference Range Interpretation Comments HDL Cholesterol (test code = 2085-9) 65 40-60 H [facility] HospitalCholesterol/HDL Egiio6449-04-68 05:13:00 * Test Item Value Reference Range Interpretation Comments Cholesterol/HDL Ratio (test code = 9830-1) 1.7 3.9-4.7 L [facility] HospitalTriglycerides Ypzpb8878-39-47 05:13:00* Test Item Value Reference Range Interpretation Comments Triglycerides Level (test code = 2571-8) 33 0-149 [facility] HospitalCholesterol Isgxk6809-11-08 05:13:00* Test Item Value Reference Range Interpretation Comments Cholesterol Level (test code = 2093-3) 108 0-199 Less than 200 mg/dL Low Kpcc412 - 239 mg/dL Borderline Kpqr211 m g/dl and greater High Risk [facility] HospitalLDL Qqjadfeklqk6972-00-93 05:13:00* Test Item Value Reference Range Interpretation Comments LDL Cholesterol (test code = 2089-1) 36 60-130 [facility]L Nluignuwiwx9021-98-25 05:13:00* Test Item Value Reference Range Interpretation Comments HDL Cholesterol (test code = 2085-9) 65 40-60 H [facility] HospitalCholesterol/HDL Scuxs6155-93-69 05:13:00 * Test Item Value Reference Range Interpretation Comments Cholesterol/HDL Ratio (test code = 9830-1) 1.7 3.9-4.7 L [facility] HospitalUrine LLW9153-83-45 08:57:00* Test Item Value Reference Range Interpretation Comments Urine WBC (test code = 5821-4) 0-5 0-5 [facility] HospitalUrine ZHJ1195-87-85 08:57:00* Test Item Value Reference Range Interpretation Comments Urine RBC (test code = 48940-2) 6-10 0-5 H [facility] HospitalUrine Ylhytxzl0278-72-04 08:57:00* Test Item Value Reference Range Interpretation Comments Urine Bacteria (test code = 42128-5) RARE NONE [facility] HospitalUrine Epithelial Pnsqh2490-26-84 08:57:00 * Test Item Value Reference Range Interpretation Comments Urine Epithelial Cells (test code = 92057-0) RARE NONE [facility] HospitalUrine Xshzr1675-74-26 08:43:00* Test Item Value Reference Range Interpretation Comments Urine Color (test code = 5778-6) YELLOW YELLOW [facility] HospitalUrine Mjjhyve6203-41-64 08:43:00* Test Item Value Reference Range Interpretation Comments Urine Clarity (test code = 16384-0) CLEAR CLEAR [facility] HospitalUrine Specific Idqopta1538-75-54 08:43:00 * Test Item Value Reference Range Interpretation Comments Urine Specific [place] (test code = 5811-5) 1.010 1.010-1.02 5 [facility] HospitalUrine hO5097-75-44 08:43:00* Test Item Value Reference Range Interpretation Comments Urine pH (test code = 07720-4) 6 5-7 [facility] HospitalUrine Leukocyte Bjlxdqjo9147-94-17 08:43:00* Test Item Value Reference Range Interpretation Comments Urine Leukocyte Esterase (test code = 5799-2) NEGATIVE NEGATIVE [facility] HospitalUrine Uhrgulr0999-83-38 08:43:00* Test Item Value Reference Range Interpretation Comments Urine Nitrite (test code = 21036-6) NEGATIVE NEGATIVE [facility] HospitalUrine Bxcvjeh4829-93-76 08:43:00* Test Item Value Reference Range Interpretation Comments Urine Protein (test code = 5804-0) NEGATIVE NEGATIVE [facility] HospitalUrine Glucose (UA)2018-03-16 08:43:00* Test Item Value Reference Range Interpretation Comments Urine Glucose (UA) (test code = 2349-9) NEGATIVE NEGATIVE [facility] HospitalUrine Szqfnpj3797-32-47 08:43:00* Test Item Value Reference Range Interpretation Comments Urine Ketones (test code = 08660-0) NEGATIVE NEGATIVE [facility] HospitalUrine Ogsvpdkqzwew6191-75-24 08:43:00* Test Item Value Reference Range Interpretation Comments Urine Urobilinogen (test code = 17714-7) 0.2 0.2-1 [facility] HospitalUrine Oobarpbcn8687-27-06 08:43:00* Test Item Value Reference Range Interpretation Comments Urine Bilirubin (test code = 1978-6) NEGATIVE NEGATIVE [facility] HospitalUrine Zxioh5597-76-68 08:43:00* Test Item Value Reference Range Interpretation Comments Urine Blood (test code = 68892-7) TRACE NEGATIVE H [facility] HospitalTotal Ndgllbmpa3536-57-24 08:16:00* Test Item Value Reference Range Interpretation Comments Total Bilirubin (test code = 1975-2) 1.4 0.2-1.2 H [facility] HospitalAspartate Amino Transf (AST/SGOT) 2018-03-16 08:16:00* Test Item Value Reference Range Interpretation Comments Aspartate Amino Transf (AST/SGOT) (test code = Aspartate Amino Transf (AST/SGOT)) 18 5-34 [facility] HospitalAlanine Aminotransferase (ALT/SGPT) 2018-03-16 08:16:00* Test Item Value Reference Range Interpretation Comments Alanine Aminotransferase (ALT/SGPT) (test code = 1742-6) 7 0-55 [facility] HospitalTotal Rdihnva6694-58-96 08:16:00* Test Item Value Reference Range Interpretation Comments Total Protein (test code = 2885-2) 7.2 6.5-8.1 [facility] HospitalAlbumin2018-08-16 08:16:00* Test Item Value Reference Range Interpretation Comments Albumin (test code = 1751-7) 3.7 3.5-5.0 [facility] HospitalGlobulin2018-08-16 08:16:00* Test Item Value Reference Range Interpretation Comments Globulin (test code = 47643-1) 3.5 2.3-3.5 [facility] HospitalAlbumin/Globulin Rkqcm4501-76-06 08:16:00 * Test Item Value Reference Range Interpretation Comments Albumin/Globulin Ratio (test code = 1759-0) 1.1 0.8-2.0 [facility] HospitalAlkaline Dqjtchpiowg0788-05-30 08:16:00* Test Item Value Reference Range Interpretation Comments Alkaline Phosphatase (test code = 6768-6) 118 40-150 [facility] HospitalCHEST SINGLE (PORTABLE)2018-03-16 08:11:00 [facility] [address] [place] [address] Patient Name: EVERETT MONROE JR MR #: [id number] : 1930 Age/Sex: 87/M Req #: [id number] Adm Physician: Ordered by: ALINA VIDAL MD Report #: [id number] Location: ER Room/Bed: Procedure: [id number] DX/CHEST SINGLE (PORTABLE ) Exam Date: 03/16/18 Exam Time: 0750 REPORT S TATUS: Signed PROCEDURE: CHEST SINGLE (PORTABLE) COMPARISON: Patients [facility], DX, CHEST SINGLE (PORTABLE), 01/06/2017, 5:33. INDICATIONS: CHEST PAIN FINDINGS: LUNGS: Increased interstitial markings are unchang ed representing either fibrosis or edema. PLEURA: No effusions or pneum othorax. HEART T MEDIASTINUM: The heart is mildly enlarged. BON ES T SOFT TISSUES: No acute findings. CONCLUSION: Cardiomega ly with an increased interstitial process not significantly changed. Baron Lloyd D.O. Dictated by: Baron Lloyd D.O. on 03/16/2018 at 8:11 Electronically approved by: Baron Lloyd D.O. on 03/16/2018 at 8:11 Dictated By: BARON LLOYD DO 0 Transcribed By: MEDINA on 03/16/18810 COPY TO: ALINA VIDAL MD CT ABDOMEN/PELVIS [id number] 13:42:00 [place] [address] Patient Name: EVERETT MONROE JR MR #: [id number] : 1930 Age/Sex: 87/M Req #: [id number] Adm Physician: Ordered by: BASSAM LANDRY MD Report #: [id number] Location: CT Room /Bed: Procedure: [id number] CT/CT ABDOMEN/PELVIS WO E xam Date: 02/24/18 Exam Time: 1155 REPORT STATU S: Signed PROCEDURE: CT ABDOMEN AND PELVIS WITHOUT CONTRAST TECHNIQUE: The abdomen and pelvis were scanned utilizing a multidetector helical scan ner from the diaphragm to the lesser trochanter after the oral administration of 450 ml of water. Coronal and sagittal multiplanar reformations were obta ined. COMPARISON: CT of the abdomen and pelvis from 05/04/2017 INDICA TIONS: MICROSCOPIC HEMATURIA FINDINGS: ABSENCE OF INTRAVENOUS CONT RAST DECREASES SENSITIVITY FOR DETECTION OF FOCAL LESIONS AND VASCULAR PATHOL OGY. LOWER THORAX: Subpleural reticular opacities with interlobular septal thickening and bronchial wall thickening, more conspicuous on the prior e xamination. There is cardiomegaly with severe coronary artery and aortic r oot calcifications. HEPATOBILIARY: There are scattered granulomas throu ghout the liver. No focal suspicious hepatic lesions. The gallbladder is abse nt. The common bile duct measures up to 0.9 cm, unchanged. SPLEEN: No s plenomegaly. Healed granulomas in the spleen. PANCREAS: No focal masses or ductal dilatation. ADRENALS: No adrenal nodules. KIDNEYS/URETERS: No hydronephrosis or solid mass lesions. 3 mm nonobstructing stone in the u pper pole of the right kidney (series 3, image 37), 4 mm nonobstructing stone in the lower pole right kidney (image 61) and a 3 mm nonobstructing stone in the upper pole the left kidney (image 32). There appears to be a 6 mm stone in the left distal ureter (series 3, image 108). There is no associated hydro nephrosis or hydroureter. PELVIC ORGANS/BLADDER: The prostate gland is mildly enlarged, measuring 5.2 x 3.6 x 5.5 cm. PERITONEUM / RETROPERITO NEUM: No free air or fluid. LYMPH NODES: No lymphadenopathy. VESSELS : Moderate atherosclerotic calcification of the aorta and its branches. GI TRACT: No distention or wall thickening. There is a large amount of stool throughout the colon with fecalization of contents in the distal ileum. The appendix is normal. BONES AND SOFT TISSUES: Multilevel spondylosis of the thoracic and lumbar spine. IMPRESSION: 1. Nonobstructing stones i n both kidneys, measuring up to 4 mm, unchanged. 2. There also appears to be a 6 mm stone in the left distal ureter without left hydronephrosis or h ydroureter. This may have been present on the 05/04/2017 examination, in which case it represents a chronically impacted ureteral stone. 3. Limited v iews of the lung bases reveal interstitial thickening. This could be due to a typical infection or pulmonary edema. Correlate clinically. 4. Mild enl argement of the prostate. Dictated by: Mack Watson M.D. on at 13:42 Electronically approved by: Mack Watson M.D. on 01/30 at 13:42 Dictated By: MACK WATSON MD Electronical ly Signed By: MACK WATSON MD on 02/24/18 1342 Transcribed By: MEDINA on 1342 COPY TO: BASSAM LANDRY MD Creatine Kinase MB 2017-05-04 00:58:00* Test Item Value Reference Range Interpretation Comments Creatine Kinase MB (test code = 67593-7) 1.30 0.00-5.00 [facility] HospitalTroponin I1584-95-56 00:58:00* Test Item Value Reference Range Interpretation Comments Troponin I (test code = RTI5312) 0.012 0-0.300 [facility] Alxhc5792-30-89 00:50:00* Test Item Value Reference Range Interpretation Comments Sodium Level (test code = 2951-2) 140 136-145 [facility] HospitalPotassium Mnycr8819-41-04 00:50:00* Test Item Value Reference Range Interpretation Comments Potassium Level (test code = 2823-3) 4.3 3.5-5.1 [facility] HospitalChloride Ytfve9845-44-85 00:50:00* Test Item Value Reference Range Interpretation Comments Chloride Level (test code = 2075-0) 104 98-107 [facility] HospitalCarbon Dioxide Jdtuz4792-73-64 00:50:00* Test Item Value Reference Range Interpretation Comments Carbon Dioxide Level (test code = 2028-9) 27 22-29 [facility] HospitalAnion Lfo0043-12-10 00:50:00* Test Item Value Reference Range Interpretation Comments Anion Gap (test code = 05828-3) 13.3 8-16 [facility] HospitalBlood Urea Rtjjbqbf6604-79-68 00:50:00* Test Item Value Reference Range Interpretation Comments Blood Urea Nitrogen (test code = 3094-0) 28 7-26 H [facility] HospitalCreatinine2017-10-04 00:50:00* Test Item Value Reference Range Interpretation Comments Creatinine (test code = 2160-0) 1.36 0.72-1.25 H [facility] HospitalBUN/Creatinine Tcdoa5104-72-05 00:50:00* Test Item Value Reference Range Interpretation Comments BUN/Creatinine Ratio (test code = 3097-3) 21 6-25 [facility] HospitalEstimat Glomerular Filtration Rate 2017-05-04 00:50:00* Test Item Value Reference Range Interpretation Comments Estimat Glomerular Filtration Rate (test code = 79388-4) 50 >60 L Ranges were taken from the National Kidney Disease Education Program and the [facility] [employer] literature.Reference ranges:60 or greater: Fmlflh84-03 ( for 3 consecutive months): Chronic kidney disease 15 or less: Kidney failureWilbarger General HospitalGlucose Eitvx0997-27-20 00:50:00* Test Item Value Reference Range Interpretation Comments Glucose Level (test code = NEU2403) 92 74-118 [facility] HospitalCalcium Emeqp5103-37-20 00:50:00* Test Item Value Reference Range Interpretation Comments Calcium Level (test code = 78259-0) 9.4 8.4-10.2 [facility] HospitalTotal Wvobikaba7265-68-82 00:50:00* Test Item Value Reference Range Interpretation Comments Total Bilirubin (test code = 1975-2) 0.7 0.2-1.2 [facility] HospitalAspartate Amino Transf (AST/SGOT) 2017-05-04 00:50:00* Test Item Value Reference Range Interpretation Comments Aspartate Amino Transf (AST/SGOT) (test code = Aspartate Amino Transf (AST/SGOT)) 20 5-34 [facility] HospitalAlanine Aminotransferase (ALT/SGPT) 2017-05-04 00:50:00* Test Item Value Reference Range Interpretation Comments Alanine Aminotransferase (ALT/SGPT) (test code = 1742-6) -6 0-55 [facility] HospitalTotal Htnfmoz0027-54-51 00:50:00* Test Item Value Reference Range Interpretation Comments Total Protein (test code = 2885-2) 6.9 6.5-8.1 [facility] HospitalAlbumin2017-10-04 00:50:00* Test Item Value Reference Range Interpretation Comments Albumin (test code = 1751-7) 3.5 3.5-5.0 [facility] HospitalGlobulin2017-10-04 00:50:00* Test Item Value Reference Range Interpretation Comments Globulin (test code = 85637-9) 3.4 2.3-3.5 [facility] HospitalAlbumin/Globulin Xphmi1565-55-94 00:50:00 * Test Item Value Reference Range Interpretation Comments Albumin/Globulin Ratio (test code = 1759-0) 1.0 0.8-2.0 [facility] HospitalAlkaline Ibacglfpzga2020-43-91 00:50:00* Test Item Value Reference Range Interpretation Comments Alkaline Phosphatase (test code = 6768-6) 120 40-150 [facility] HospitalCreatine Eyupcv3809-39-96 00:50:00* Test Item Value Reference Range Interpretation Comments Creatine Kinase (test code = 2157-6) 31 30-200 [facility] HospitalUrine OMY5679-08-02 00:42:00* Test Item Value Reference Range Interpretation Comments Urine WBC (test code = 5821-4) 6-10 0-5 H [facility] HospitalUrine QUB6498-78-63 00:42:00* Test Item Value Reference Range Interpretation Comments Urine RBC (test code = 24974-2) 50- 0-5 H [facility] HospitalUrine Uekevgql2052-50-63 00:42:00* Test Item Value Reference Range Interpretation Comments Urine Bacteria (test code = 37650-0) FEW NONE [facility] HospitalUrine Epithelial Zgqxe6121-19-21 00:42:00 * Test Item Value Reference Range Interpretation Comments Urine Epithelial Cells (test code = 02872-4) FEW NONE [facility] HospitalProthrombin Tsri9057-32-22 00:41:00* Test Item Value Reference Range Interpretation Comments Prothrombin Time (test code = 5902-2) 17.8 11.9-14.5 H [facility] HospitalProthromb Time International Ratio 2017-05-04 00:41:00* Test Item Value Reference Range Interpretation Comments Prothromb Time International Ratio (test code = 6301-6) 1.39 Oral Anticoagulant Therapy INR Values:1. Low Intensity Therapy 1.5 - 2.02 . Moderate Intensity Therapy 2.0 - 3.03. High Intensity Therapy(1) 2.5 - 3. 54. High Intensity Therapy(2) 3.0 - 4.05. Panic Value INR > 5.0 [facility] HospitalActivated Partial Thromboplast Time 2017-05-04 00:41:00* Test Item Value Reference Range Interpretation Comments Activated Partial Thromboplast Time (test code = 98976-1) 46.5 23.8-35.5 H [facility] HospitalUrine Glotn7283-62-43 00:31:00* Test Item Value Reference Range Interpretation Comments Urine Color (test code = 5778-6) ORANGE YELLOW H [facility] HospitalUrine Roqyjtl6745-32-70 00:31:00* Test Item Value Reference Range Interpretation Comments Urine Clarity (test code = 22683-7) SL CLOUDY CLEAR H [facility] HospitalUrine Specific Wbjjyki6175-29-52 00:31:00 * Test Item Value Reference Range Interpretation Comments Urine Specific [place] (test code = 5811-5) 1.015 1.010-1.02 5 [facility] HospitalUrine hH2659-55-44 00:31:00* Test Item Value Reference Range Interpretation Comments Urine pH (test code = 55774-6) 7 5-7 [facility] HospitalUrine Leukocyte Rhssfmgb0030-00-20 00:31:00* Test Item Value Reference Range Interpretation Comments Urine Leukocyte Esterase (test code = 5799-2) 1+ NEGATIVE H [facility] HospitalUrine Ldqlfhg9881-22-44 00:31:00* Test Item Value Reference Range Interpretation Comments Urine Nitrite (test code = 34426-7) NEGATIVE NEGATIVE [facility] HospitalUrine Ofgrphs4021-56-91 00:31:00* Test Item Value Reference Range Interpretation Comments Urine Protein (test code = 5804-0) 2+ NEGATIVE H [facility] HospitalUrine Glucose (UA)2017-05-04 00:31:00* Test Item Value Reference Range Interpretation Comments Urine Glucose (UA) (test code = 2349-9) NEGATIVE NEGATIVE [facility] HospitalUrine Negyspd0135-61-13 00:31:00* Test Item Value Reference Range Interpretation Comments Urine Ketones (test code = 83876-8) TRACE NEGATIVE H [facility] HospitalUrine Dxeuubacavik1988-66-39 00:31:00* Test Item Value Reference Range Interpretation Comments Urine Urobilinogen (test code = 86146-6) 0.2 0.2-1 [facility] HospitalUrine Msvnapxgd6777-91-08 00:31:00* Test Item Value Reference Range Interpretation Comments Urine Bilirubin (test code = 1978-6) NEGATIVE NEGATIVE [facility] HospitalUrine Tvhnx5109-72-41 00:31:00* Test Item Value Reference Range Interpretation Comments Urine Blood (test code = 86278-8) 4+ NEGATIVE H [facility] HospitalWhite Blood Jvwtn0706-34-63 00:30:00* Test Item Value Reference Range Interpretation Comments White Blood Count (test code = 6690-2) 8.94 4.8-10.8 [facility] Gbhfu1425-16-06 00:30:00* Test Item Value Reference Range Interpretation Comments Red Blood Count (test code = 789-8) 4.51 4.3-5.7 [facility]2017-10-04 00:30:00* Test Item Value Reference Range Interpretation Comments Hemoglobin (test code = 09770-2) 14.3 14.0-18.0 [facility]ematocrit2017-10-04 00:30:00* Test Item Value Reference Range Interpretation Comments Hematocrit (test code = 4544-3) 42.0 38.2-49.6 [facility] Corpuscular Iickhk2230-03-34 00:30:00* Test Item Value Reference Range Interpretation Comments Mean Corpuscular Volume (test code = 787-2) 93.1 81-99 [facility] Corpuscular Samyzyguig5175-36-77 00:30:00* Test Item Value Reference Range Interpretation Comments Mean Corpuscular Hemoglobin (test code = 785-6) 31.7 28-32 [facility] Hem[facility] Concent 2017-05-04 00:30:00* Test Item Value Reference Range Interpretation Comments Mean Corpuscular Hemoglobin Concent (test code = 786-4) 34.0 31-35 [facility] Cell Distribution Undzb6421-10-54 00:30:00* Test Item Value Reference Range Interpretation Comments Red Cell Distribution Width (test code = 80213-0) 14.5 11.7 -14.4 H [facility] HospitalPlatelet Bmqpt9046-05-85 00:30:00* Test Item Value Reference Range Interpretation Comments Platelet Count (test code = 777-3) 210 140-360 [facility]Neutrophils (%) (Auto)2017-05-04 00:30:00 * Test Item Value Reference Range Interpretation Comments Neutrophils (%) (Auto) (test code = 16813-2) 58.8 38.7-80.0 [facility]Lymphocytes (%) (Auto)2017-05-04 00:30:00 * Test Item Value Reference Range Interpretation Comments Lymphocytes (%) (Auto) (test code = 736-9) 17.1 18.0-39.1 L [facility]Monocytes (%) (Auto)2017-05-04 00:30:00* Test Item Value Reference Range Interpretation Comments Monocytes (%) (Auto) (test code = 5905-5) 14.3 4.4-11.3 [facility] HospitalEosinophils (%) (Auto)2017-05-04 00:30:00 * Test Item Value Reference Range Interpretation Comments Eosinophils (%) (Auto) (test code = 713-8) 8.5 0.0-6.0 H [facility]Basophils (%) (Auto)2017-05-04 00:30:00* Test Item Value Reference Range Interpretation Comments Basophils (%) (Auto) (test code = 706-2) 1.0 0.0-1.0 [facility] HospitalIM GRANULOCYTES %2017-05-04 00:30:00* Test Item Value Reference Range Interpretation Comments IM GRANULOCYTES % (test code = IM GRANULOCYTES %) 0.3 0.0- 1.0 [facility]Neutrophils # (Auto)2017-05-04 00:30:00* Test Item Value Reference Range Interpretation Comments Neutrophils # (Auto) (test code = 751-8) 5.3 2.1-6.9 [facility] HospitalLymphocytes # (Auto)2017-05-04 00:30:00* Test Item Value Reference Range Interpretation Comments Lymphocytes # (Auto) (test code = 98141-0) 1.5 1.0-3.2 [facility] # (Auto)2017-05-04 00:30:00* Test Item Value Reference Range Interpretation Comments Monocytes # (Auto) (test code = 742-7) 1.3 0.2-0.8 H [facility]Eosinophils # (Auto)2017-05-04 00:30:00* Test Item Value Reference Range Interpretation Comments Eosinophils # (Auto) (test code = 711-2) 0.8 0.0-0.4 H [facility]Basophils # (Auto)2017-05-04 00:30:00* Test Item Value Reference Range Interpretation Comments Basophils # (Auto) (test code = 704-7) 0.1 0.0-0.1 [facility] HospitalAbsolute Immature Granulocyte (auto 2017-05-04 00:30:00* Test Item Value Reference Range Interpretation Comments Absolute Immature Granulocyte (auto (dayna t code = Absolute Immature Granulocyte (auto) 0.03 0-0.1 [facility] HospitalH[facility] LEFT 2-3 VW (+/- PELVIS) [facility] [address] [place] [address] Patient Name: EVERETT MONROE JR MR #: [id number] : 1930 Age/Sex: 86/M Req #: [id number] Adm Physician: Ordered by: NEIL GUZMAN MD Report #: [id number] Location: [facility] m/Bed: Procedure: [id number] DX/HIP LEFT 2-3 VW (+/- P BELÉN) Exam Date: Exam Time: REPORT STATUS: Signed PROCEDURE: HIP LEFT 2-3 VW (+/- PELVIS) COMPARISON: CT abdom en and pelvis 05/04/2017 INDICATIONS: LEFT HIP PAIN FINDINGS: Normal mineralization. No acute fracture or dislocation. Mild degenerative c hanges of the left hip and pubic symphysis. Diffuse vascular calcifications. CONCLUSION: Mild degenerative changes of the left hip. No a cute osseous abnormalities. Dictated by: Brannon Izquierdo M.D. on 018 at 15:33 Electronically approved by: Brannon Izquierdo M.D. on 8 at 15:33 Dictated By: BRANNON IZQUIERDO MD Electronically Deyanira d By: BRANNON IZQUIERDO MD on 09/08/17 1533 Transcribed By: MEDINA on 09/08/17 1533 COPY TO: NEIL GUZMAN MD CT ABDOMEN/PELVIS WO [place] [address] Patient Name: EVERETT MONROE JR MR #: [id number] : 1930 Age/Sex: 86/M Req #: [id number] Adm Physician: Ordered by: FRANKIE OSORIO MD Report #: [id number] Location: ER Room/Bed: Procedure: [id number] CT/CT ABDOMEN/PELVIS WO Exam Date: 05/04/17 Exam Time: 0140 REPORT STATUS: Signed EXAM: CT ABDOMEN AND PELVIS without IV CONTRAST DATE: 2016 11:59 PM Time stamp on Exam: 0145 hours INDICATION: Abdominal pain, wea kness, hematuria COMPARISON: None TECHNIQUE: The abdomen and pelvis were s canned using a multidetector helical scanner. Coronal and sagittal reformation s were obtained. Routine protocol performed. IV Contrast: None Oral Contra st: Gastrografin CTDIvol has been reviewed. It is below the limits set by the Radiation Protocol Committee (RPC). FINDINGS: LOWER THORAX: No consolid ations. Partially visualized trace pericardial effusion. LIVER: No masses BILIARY: The gallbladder has been removed. No abnormal ductal dilation. SPLEEN: No masses PANCREAS: No masses ADRENALS: No nodules KIDNEYS: No nobstructing 2 mm stone superior pole right kidney and 3 mm stone inferior debi e right kidney. Punctate nonobstructing stone in the superior pole of the left kidney. No ureteral stones. GI TRACT: No distention, wall thickening or ev idence of obstruction. Large amount of retained stool. No bowel obstruction. N ormal appendix. VESSELS: Atherosclerotic changes of the abdominal aorta and branches. PERITONEUM/RETROPERITONEUM: No free air or fluid LYMPH NODES: No lymphadenopathy REPRODUCTIVE ORGANS: Unremarkable BLADDER: Decompressed b y Peng catheter. SOFT TISSUES: Unremarkable BONES: No suspicious bone le sions. IMPRESSION: Bilateral nonobstructing renal stones. No hydronephros is. Large amount of retained stool without obstruction. Signed by: Dr. Rustam Frye M.D. on 05/04/2017 2:22 AM Dictated By: RUSTAM FRYE MD 1 Transcribed By: ELLIOT on 05/04/17221 COPY TO: FRANKIE OSORIO MD [facility] [place] [address] Patient Name: EVERETT MONROE JR MR #: [id number] : 1930 Age/Sex: 86/M Req #: [id number] Adm Physician: Ordered by: NEIL GUZMAN MD Report #: [id number] Location: [facility] Room/Bed: Procedure: [id number] DX/SACRUM COCCYX Exam Date: 04/19/17 Exam Time: 1140 REPORT STATUS: S igned PROCEDURE: SACRUM T COCCYX TECHNIQUE: 3 views of the coccyx. INDICATION: Fall. Tailbone pain. COMPARISON: None. FINDINGS: Diffu se osteopenia which limits the evaluation of the sacrum and the sacral forame n. Severe L5-S1 facet arthrosis. Mild degenerative changes in both SI joint s. Severe atherosclerotic calcifications. CONCLUSION: Diffuse osteopen ia which limits evaluation of the sacrum. Grossly unremarkable sacrum. If the re is persistent pain, noncontrast pelvis CT can be performed. Dictated by: Yaya Robbins M.D. on 04/19/2017 at 12:31 Electronically approved by: Yaya Robbins M.D. on 04/19/2017 at 12:31 Dictated By: YAYA ROBBINS MD 1231 Transcribed By: MEDINA on 04/19/17 1231 COPY TO: NEIL GUZMAN MD
[2019-12-28] MEDS ORDERED: SODIUM CHLORIDE 0.9% 1000ML 1,000 ML IV STA (15:18)
[2019-12-28] MEDS ORDERED: PIPER-TAZ 3.375 GM 50 ML IV ONE (15:30)
--- NOTE | 2019-12-28 16:12 | Emergency Department Note ---
History of Present Illnes History of Present Illness Chief Complaint: General Medicine Complaints History of Present Illness This is a 89 year old male . Chief Complaint Comment HERE FOR FREQUENT FALLS AND WEAKNESS FOR THE LAST WEEK. 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 Any updates have been documented here. (SHYLA IBRAHIM NP) Past Medical History Recent Fever: No Clinical Suspicion of Infectio: No New/Unexplained Change in Ment: No Past Medical History: Hypertension, COPD, CHF, [place], CVA, TIA, Asthma, A-Fib, CAD, Kidney Stones Other Medical History: esophogeal hernia, stents x4 PARKINSONS MACULAR DEGENERATION BLIND RIGHT EYE Past Surgical History: PCI, Pacer/AICD Other Surgery: EGD PCIx4 CARDIAC STENTS (SHYLA IBRAHIM NP) Social History Smoking Cessation: Never Smoker Alcohol Use: None Any Illegal Drug Use: No TB Exposure/Symptoms: No Physically hurt or threatened: No (SHYLA IBRAHIM NP) Family History Family history of heart diseas: No (SHYLA IBRAHIM NP) Other Last Tetanus: UTD X3 YEARS AGO Any Pre-Existing Lines (PICC,: No (SHYLA IBRAHIM NP) Review of Systems Review of Systems Constitutional: weakness EENTM: no symptoms Cardiovascular: no symptoms Respiratory: no symptoms Gastrointestinal: no symptoms Genitourinary: no symptoms Musculoskeletal: no symptoms Neurological: weakness Psychological: no symptoms Endocrine: no symptoms Hematological/Lymphatic: no symptoms Review of other systems All other systems reviewed and negative. reported multi falls over the past wk - decreased oral intact - generalized weakness (SHYLA IBRAHIM NP) Physical Exam Related Data Allergies: Coded Allergies: No Known Allergies (Unverified , 10/23/18) Triage Vital Signs Vital Signs Date Time Temp Pulse Resp B/P (MAP) Pulse Ox O2 Delivery O2 Flow Rate FiO2 12/28/19 15:46 98.7 86 16 Vital signs reviewed: Yes ([facility]) Physical Exam CONSTITUTIONAL Constitutional: well-developed HENT HENT: normocephalic, atraumatic, oropharynx clear/moist, nose normal HENT L/R: left ext ear normal, right ext ear normal EYES Eyes: PERRL, conjunctivae normal, EOM normal, lids normal, left eye discharge, right eye discharge, scleral icterus NECK Neck: ROM normal PULMONARY Pulmonary: effort normal, breath sounds normal CARDIOVASCULAR Cardiovascular: regular rhythm, heart sounds normal, capillary refill normal, normal rate GASTROINTESTINAL Abdominal: soft, nontender, bowel sounds normal GENITOURINARY Genitourinary: exam deferred SKIN Skin: warm, dry MUSCULOSKELETAL Musculoskeletal: ROM normal NEUROLOGICAL Neurological: alert, oriented x 3, cranial nerve deficit; sensory deficit PSYCHOLOGICAL Psychological: mood/affect normal, judgement normal ([facility]) Results Laboratory Laboratory Laboratory Tests Test 12/28/19 15:05 White Blood Count 23.33 x10e3/uL (4.8-10.8) Red Blood Count 3.62 x10e6/uL (4.3-5.7) Hemoglobin 10.7 g/dL (14.0-18.0) Hematocrit 32.8 % (38.2-49.6) Mean Corpuscular Volume 90.6 fL (81-99) Mean Corpuscular Hemoglobin 29.6 pg (28-32) Mean Corpuscular Hemoglobin Concent 32.6 g/dL (31-35) Red Cell Distribution Width 13.7 % (11.7-14.4) Platelet Count 415 x10e3/uL (140-360) Neutrophils (%) (Auto) 88.2 % (38.7-80.0) Lymphocytes (%) (Auto) 2.4 % (18.0-39.1) Monocytes (%) (Auto) 8.2 % (4.4-11.3) Eosinophils (%) (Auto) 0.0 % (0.0-6.0) Basophils (%) (Auto) 0.3 % (0.0-1.0) Neutrophils # (Auto) 20.6 (2.1-6.9) Lymphocytes # (Auto) 0.6 (1.0-3.2) Monocytes # (Auto) 1.9 (0.2-0.8) Eosinophils # (Auto) 0.0 (0.0-0.4) Basophils # (Auto) 0.1 (0.0-0.1) Absolute Immature Granulocyte (auto 0.20 x10e3/uL (0-0.1) Prothrombin Time 26.5 seconds (11.9-14.5) Prothromb Time International Ratio 2.25 Activated Partial Thromboplast Time 59.2 seconds (23.8-35.5) Sodium Level 136 mmol/L (136-145) Potassium Level 3.7 mmol/L (3.5-5.1) Chloride Level 100 mmol/L (98-107) Carbon Dioxide Level 26 mmol/L (22-29) Anion Gap 13.7 mmol/L (8-16) Blood Urea Nitrogen 28 mg/dL (7-26) Creatinine 1.33 mg/dL (0.72-1.25) Estimat Glomerular Filtration Rate 51 ML/MIN (60-) BUN/Creatinine Ratio 21 (6-25) Glucose Level 107 mg/dL (74-118) Lactic Acid Level 1.2 mmol/L (0.5-2.0) Calcium Level 9.0 mg/dL (8.4-10.2) Total Bilirubin 1.1 mg/dL (0.2-1.2) Aspartate Amino Transf (AST/SGOT) 28 IU/L (5-34) Alanine Aminotransferase (ALT/SGPT) < 6 IU/L (0-55) Alkaline Phosphatase 101 IU/L (40-150) Creatine Kinase 184 IU/L (30-200) Creatine Kinase MB 3.00 ng/mL (0-5.0) Troponin I 0.005 ng/mL (0-0.300) B-Type Natriuretic Peptide 274.4 pg/mL (0-100) Total Protein 6.7 g/dL (6.5-8.1) Albumin 2.1 g/dL (3.5-5.0) Globulin 4.6 g/dL (2.3-3.5) Albumin/Globulin Ratio 0.5 (0.8-2.0) Thyroid Stimulating Hormone (TSH) 0.353 uIU/mL (0.350-4.940) Lab results reviewed: Yes (SHYLA IBRAHIM NP) Imaging Impressions cxr IMPRESSION: New airspace opacities in the left mid and lower lung zones, concerning for aspiration or pneumonia in the proper clinical setting. Signed by: Medhat Montoya MD on 12/28/2019 4:18 PM Dictated By: MEDHAT MONTOYA MD 17 Transcribed By: ELLIOT on 12/28/191617 ct brain Impression: No acute abnormalities. Chronic findings: 1. Moderate generalized volume loss. 2. Moderate to severe supratentorial white matter small vessel ischemic changes. Dictated By: FRANKIE VU MD 1616 ([facility]) Critical Care Time Subsequent provider I assumed direction of critical care for this patient from another provider of my specialty. ([facility]) Assessment & Plan Reassessment Reassessment time: 16:10 Reassessment 89y m presented to ed c/o generalized weakness reported multi falls - pt a&o x3 hx parkinson's - reports decreased oral intact - Dr Wright in eval pt status - lab ekg cxr ct denise ordered (SHYLA IBRAHIM NP) Assessment & Plan Final Impression: (1) WEAKNESS (2) ALTERED MENTAL STATUS, UNSPECIFIED (3) PNEUMONIA, UNSPECIFIED ORGANISM (4) ACUTE KIDNEY FAILURE, UNSPECIFIED (5) OTHER ELEVATED WHITE BLOOD CELL COUNT (6) REPEATED FALLS Assessment & Plan Dr Wright spoke w/ Dr Alonzo covering for Dr Sirena Huffman will admit ([facility]) Last Vital Signs Date Time Temp Pulse Resp B/P (MAP) Pulse Ox O2 Delivery O2 Flow Rate FiO2 12/28/19 15:46 98.7 86 16 ([facility]) Home Meds Reported Medications Potassium Chloride (KLOR-CON 10) 10 Meq Tablet.er, 10 MEQ PO DAILY, #180 03/16/18 Tamsulosin Hcl (TAMSULOSIN HCL) 0.4 Mg Cap.er.24h, 1 CAP PO DAILY 03/23/17 Nitroglycerin (NITROGLYCERIN) 0.4 Mg Tab.subl, 0.4 MG SL Q5MIN PRN for PRN, TAB 03/23/17 Hydrocodone Bit/Acetaminophen (NORCO 5-325 TABLET) 1 Each Tablet, 1 EACH PO PRN, TAB 03/23/17 Albuterol Sulfate (ALBUTEROL SULFATE) 0.63 Mg/3 Ml Vial.neb, 1 INH PO PRN 03/23/17 Rivaroxaban (XARELTO) 20 Mg Tablet, 20 MG PO DAILY 01/05/17 Aspirin (ASPIR 81) 81 Mg Tablet.dr, 81 MG PO DAILY 01/05/17 Carbidopa/Levodopa (SINEMET 25-100 MG TABLET) 1 Each Tablet, 50-200 MG PO QID, #30 TAB 01/05/17 Oxybutynin Chloride (OXYBUTYNIN CHLORIDE) 5 Mg Tablet, 5 MG PO DAILY, #30 TAB 01/05/17 Atorvastatin Calcium (ATORVASTATIN CALCIUM) 10 Mg Tablet, 80 MG PO HS, #30 TAB 09/08/16 Furosemide (FUROSEMIDE) 40 Mg Tablet, 80 MG PO Daily, #30 TAB 09/08/16 Entacapone (COMTAN) 200 Mg Tablet, 200 MG PO QID 11/05/14 Amantadine Hcl (AMANTADINE) 100 Mg Capsule, 100 MG PO DAILY 11/05/14 Medications in the ED Sodium Chloride 1,000 ml @ 0 mls/hr Q0M STAT IV ; Start 12/28/19 at 15:18; Stop 12/28/19 at 15:19 Piperacillin Sod/ Tazobactam Sod 50 ml @ 50 mls/hr NOW ONCE IV ; Start 12/28/19 at 15:30; Stop 12/28/19 at 16:29 Azithromycin 250 ml @ 200 mls/hr ONCE ONCE IV ; Start 12/28/19 at 16:30; Stop 12/28/19 at 17:44 (SHYLA IBRAHIM NP) Physician Attestation Provider Attestation The patient's history, exam findings, diagnostics, and a summary of any interventions or procedures was reviewed in detail with our LIA. I personally interviewed and examined the patient, and I have reviewed and agree with the HPI andexam. My personal exam shows mumbled speech but he is oriented, L- scattered bilat rhonchi L>R. I confirm the diagnosis as documented by the LIA. I have reviewed and agree with the care plan articulated in the disposition section. (ALEXANDRA WRIGHT MD) SHYLA IBRAHIM NP December 28, 2019 16:12 ALEXANDRA WRIGHT MD December 28, 2019 19:17
--- NOTE | 2019-12-28 16:16 | Diagnostic Imaging Report ---
History: Weakness, falls Comparison studies: CT head 12/13/2018 Technique: Axial images were obtained from the skull base to the vertex. Coronal and sagittal images reconstructed from the axial data. Dose modulation, iterative reconstruction, and/or weight based adjustment of the mA/kV was utilized to reduce the radiation dose to as low as reasonably achievable. Intravenous contrast: None Findings: Scalp/skull: Nonaggressive-appearing 3.0 cm right occipitomastoid lucency with central hypodensity at the junction of the right transverse and sigmoid sinuses may be an incidental intradiploic arachnoid granulation. Extra-axial spaces: No masses. No fluid collections. Brain sulci: Moderately prominent. Ventricles: Moderate compensatory dilatation. No hydrocephalus. Parenchyma: Ill-defined confluent hypodensities in the supratentorial white matter are nonspecific but are most compatible with chronic microvascular ischemic changes. No mass, acute hemorrhage, acute or chronic cortical vascular insults. Evaluation for subcortical ischemia is limited in the context of confluent hypodense white matter changes. Sellar/suprasellar region: No abnormalities. Craniocervical junction: Patent foramen magnum. No Chiari one malformation. Incidental findings: Atherosclerotic calcifications in the carotid siphons. 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 Left intraocular lens replacement. Atherosclerotic calcifications in the carotid siphons and intradural vertebral arteries. IMPRESSION: No acute intracranial abnormalities. No changes from the prior head CT of 12/13/2018. Chronic findings: 1. Moderate generalized parenchymal volume loss. 2. Moderate to severe chronic microvascular ischemic changes. A final report was issued by Dr. Gu at 7:25 PM on 12/28/2019. Signed by: Dr. Omar Gu M.D. on 12/28/2019 7:25 PM
--- NOTE | 2019-12-28 16:22 | Diagnostic Imaging Report ---
EXAMINATION: CHEST SINGLE (PORTABLE) INDICATION: Weakness, fall COMPARISON: Chest radiograph of 12/13/2018 FINDINGS: LINES/TUBES:Left chest AICD. LUNGS:The lungs are moderately inflated. New airspace opacities in the left mid and lower lung zones. PLEURA:No pleural effusion or pneumothorax. MEDIASTINUM:The cardiomediastinal silhouette appears unchanged in size and shape. Atherosclerotic calcifications of the thoracic aorta. BONES/SOFT TISSUES:No acute osseous injury. ABDOMEN:No free air under the diaphragm. IMPRESSION: New airspace opacities in the left mid and lower lung zones, concerning for aspiration or pneumonia in the proper clinical setting. Signed by: David Montoya MD on 12/28/2019 4:18 PM
[2019-12-28] MEDS ORDERED: AZITHROMYCIN 500MG/NS 250 ML 250 ML IV ONE (16:30)
[2019-12-28 16:39] LABS: BASOPHILS # (AUTO) 0.1 (0.0-0.1); BASOPHILS % 0.3 % (0.0-1.0); HEMATOCRIT 32.8 % (38.2-49.6); HEMOGLOBIN 10.7 g/dL (14.0-18.0); LYMPHOCYTES # (AUTO) 0.6 (1.0-3.2); LYMPHOCYTES % 2.4 % (18.0-39.1); MEAN CORPUSCULAR HEMOGLOBIN 29.6 pg (28-32); MEAN CORPUSCULAR HGB CONC 32.6 g/dL (31-35); MEAN CORPUSCULAR VOLUME 90.6 fL (81-99); MONOCYTES # (AUTO) 1.9 (0.2-0.8); MONOCYTES % 8.2 % (4.4-11.3); NEUTROPHILS # (AUTO) 20.6 (2.1-6.9); NEUTROPHILS % 88.2 % (38.7-80.0); PLATELET COUNT 415 x10e3/uL (140-360); RED BLOOD COUNT 3.62 x10e6/uL (4.3-5.7); RED CELL DISTRIBUTION WIDTH 13.7 % (11.7-14.4)
[2019-12-28 16:44] LABS: INR 2.25; PROTHROMBIN TIME 26.5 seconds (11.9-14.5)
[2019-12-28 16:46] LABS: PARTIAL THROMBOPLASTIN TIME 59.2 seconds (23.8-35.5)
[2019-12-28 16:52] LABS: ALBUMIN 2.1 g/dL (3.5-5.0); ALBUMIN/GLOBULIN RATIO 0.5 (0.8-2.0); ALKALINE PHOSPHATASE 101 IU/L (40-150); ANION GAP 13.7 mmol/L (8-16); BLOOD UREA NITROGEN 28 mg/dL (7-26); BUN/CREATININE RATIO 21 (6-25); CARBON DIOXIDE 26 mmol/L (22-29); CHLORIDE 100 mmol/L (98-107); CREATINE KINASE 184 IU/L (30-200); CREATININE, SERUM 1.33 mg/dL (0.72-1.25); EST GLOMERULAR FILTRATION RATE 51 ML/MIN (60-); GLUCOSE 107 mg/dL (74-118); POTASSIUM 3.7 mmol/L (3.5-5.1); SODIUM 136 mmol/L (136-145)
[2019-12-28 16:54] LABS: ALANINE AMINOTRANSFERASE < 6 IU/L (0-55)
[2019-12-28 17:21] LABS: THYROID STIMULATING HORMONE 0.353 uIU/mL (0.350-4.940)
[2019-12-28] MEDS: ALBUTEROL SULF 0.083% NEB SOLN 3 ML NEB NEB SCH ×2 (19:35→23:00)
[2019-12-28] MEDS: SODIUM CHLORIDE 0.9% 1000ML 1,000 ML IV SCH (19:36)
--- OUTSIDE RECORDS SUMMARY | 2019-12-28 20:51 | XMS REPORT | Clinical Summary ---
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
--- OUTSIDE RECORDS SUMMARY | 2019-12-28 20:52 | XMS REPORT ---
Author Author [facility] t Organization [facility] Address [address] [place] [address] Phone Unavailable Care Team Providers Care Director Of Rehabilitation And Wellness Name Role Phone MEGAN WETZEL, NEIL PCP Alexandria WRIGHT Attphys Unavailable Jani HOLCOMB Attphys Unavailable MEGAN, SOUHEIL Attphys Unavailable BASSAM LANDRY Attphys Unavailable Lalo OSORIO Attphys Unavailable GUZMAN, SOUHEIL Admphys Unavailable Payers Payer Name Policy Type Policy Number Effective Date Expiration Date Sirena Castelan Ppo [id number] 2015 00:00:00 [facility] Medicare A & B [id number] 1997 00:00:00 C [facility] Problems Condition Name Condition Details Condition Category Status Onset Date Resolution Date Last Treatment Date Treating Clinician Comments Source Congestive heart failure CHF (congestive heart failure) Problem Active 2014-11-06 00:00:00 [facility] Chest pain Chest pain Problem Active C [facility] Epistaxis Epistaxis Problem Active [facility] Allergies, Adverse Reactions, Alerts This patient has [...] Mg/3 Ml Vial.neb Yes 1 As Needed [facility] Amantadine Hcl (Amantadine) 100 Mg Capsule Amantadine Hcl (Amantadine) 100 Mg Capsule Yes 100 Daily [facility] Aspirin (Aspir 81) 81 Mg Tablet. Aspirin (Aspir 81) 81 Mg Tablet. Yes 81 Daily [facility] Atorvastatin Calcium 10 Mg Tablet Atorvastatin Calcium 10 Mg Tablet Yes 80 Bedtime [facility] Carbidopa/Levodopa (Sinemet 25-100 Mg Tablet) 1 Each T ablet Carbidopa/Levodopa (Sinemet 25-100 Mg Tablet) 1 Each Tablet Yes Four Times Daily [facility] Entacapone (Comtan) 200 Mg Tablet Entacapone (Comtan) 200 Mg Tablet Yes 200 Four Times Daily [facility] Furosemide 40 Mg Tablet Furosemide 40 Mg Tablet Yes 80 Daily [facility] Hydrocodone Bit/Acetaminophen (Limerick 5-325 Tablet) 1 E ach Tablet Hydrocodone Bit/Acetaminophen ([place]imer[place] 5-325 Tablet) 1 Each Tablet Yes 1 As Needed [facility] Nitroglycerin 0.4 Mg Tab.subl Nitroglycerin 0.4 Mg Tab.subl Yes .4 Every 5 Minutes as needed for Pr[facility] Oxybutynin Chloride 5 Mg Tablet Oxybutynin Chloride 5 Mg Tablet Yes 5 Daily [facility] Potassium Chloride (Klor-Con 10) 10 Meq Tablet.er Pota ssium Chloride (Klor-Con 10) 10 Meq Tablet.er Yes 10 Daily [facility] Rivaroxaban (Xarelto) 20 Mg Tablet Rivaroxaban (Xarelto) 20 Mg Tablet Yes 20 Daily [facility] Tamsulosin Hcl 0.4 Mg Cap.er.24h Tamsulosin Hcl 0.4 Mg Cap.er.24h Yes 1 Daily [facility] Carbidopa/Levodopa (Sinemet 25-100 Mg Tablet) 1 Each T ablet, 1 Each Oral Carbidopa/Levodopa (Sinemet 25-100 Mg Tablet) 1 Each Tablet, 1 Each Oral 2017-01-05 00:00:00 No 1 Four Times Daily [facility] Hydrocodone Bit/Acetaminophen (Limer[place] 5-325 Tablet) 1 E ach Tablet, 1 Each Oral Hydrocodone Bit/Acetaminophen ([place]imer[place] 5-325 Tablet) 1 Each Tablet, 1 Each Oral 2017-01-05 00:00:00 No 1 Every 4 Hours [facility] Potassium Chloride (K Dur*) 10 Meq Tabcr, 20 Meq Oral Potassium Chloride (K Dur*) 10 Meq Tabcr, 20 Meq Oral 2017-01-05 00:00:00 No 20 Daily [facility] Warfarin Sodium 1 Mg Tablet, 8 Mg Oral Warfarin Sodium 1 Mg Tabl et, 8 Mg Oral 2017-01-05 00:00:00 No 8 Daily [facility] Aspirin (Aspir 81) 81 Mg Tablet., 81 Mg Oral Aspirin (Aspir 81) 81 Mg Tablet., 81 Mg Oral 2016-09-08 00:00:00 No 81 Da alexus [facility] Calcium Carbonate/Vitamin D3 (Calcium 50 0+D Tablet Chew) 1 Each Tab.chew, 500 Mg Oral Calcium Carbonate/Vitamin D3 (Calcium 50 0+D Tablet Chew) 1 Each Tab.chew, 500 Mg Oral 2016-09-08 00:00:00 No 500 Daily [facility] Carbidopa/Levodopa (Sinemet 25-100 Mg Tablet) 1 Each T ablet, 1 Each Oral Carbidopa/Levodopa (Sinemet 25-100 Mg Tablet) 1 Each Tablet, 1 Each Oral 2016-09-08 00:00:00 No 1 Three Times A Day [facility] Clopidogrel Bisulfate (Plavix) 75 Mg Tablet, 75 Mg Ora l Clopidogrel Bisulfate (Plavix) 75 Mg Tablet, 75 Mg Oral 2016-09-08 00:00:00 No 75 Daily [facility] Doxazosin Mesylate (Cardura) 4 Mg Tablet, 4 Mg Oral Do xazosin Mesylate (Cardura) 4 Mg Tablet, 4 Mg Oral 2016-09-08 00:00:00 No 4 D aily [facility] Furosemide (Lasix) 40 Mg Tablet, 40 Mg Oral Furosemide (Lasix) 40 Mg Tablet, 40 Mg Oral 2016-09-08 00:00:00 No 40 Twice A Day [facility] Lisinopril 10 Mg Tablet, 30 Mg Oral Lisinopril 10 Mg Tablet, 30 Mg Oral 2016-09-08 00:00:00 No 30 Daily [facility] Oxybutynin Chloride 5 Mg Tablet, 5 Mg Oral Oxybutynin Chloride 5 Mg Tablet, 5 Mg Oral 2016-09-08 00:00:00 No 5 Daily [facility] Potassium Chloride 10 Meq Tab.er.prt, 10 Meq Oral Pota ssium Chloride 10 Meq Tab.er.prt, 10 Meq Oral 2016-09-08 00:00:00 No 10 Daily [facility] Warfarin Sodium (Coumadin) 1 Mg Tablet, Unknown Dose Oral Warfarin Sodium (Coumadin) 1 Mg Tablet, Unknown Dose Oral 2016-09-08 00:00:00 No Daily [facility] Sildenafil Citrate (Viagra) 100 Mg Tablet, 100 Mg Oral Sildenafil Citrate (Viagra) 100 Mg Tablet, 100 Mg Oral 2015-06-13 00:00:00 No 100 Daily [facility] Procedures Procedure Date / Time Performed Performing Clinician [facility] e Computed tomography of brain without radiopaque contrast 201 04-05-15 00:00:00 ALEXANDRA WRIGHT [facility] Computed tomography of cervical spine without contrast 12-13 00:00:00 BOYNE FALLSALEXANDRA [facility] X-ray of chest, two views 2018-12-13 00:00:00 ALEXANDRA WRIGHT [facility] Computed tomography of abdomen and pelvis without then with contrast 2018-10-23 00:00:00 DEVEN HOLCOMB [facility] INSERT OF DEFIB GEN INTO CHEST SUBCU/FASCIA, OPEN APPROACH 2 00:00:00 [facility] INSERTION OF DEFIB LEAD INTO R VENTRICLE, PERC APPROACH 2017 [facility]:00[facility] X-ray of chest, two views 2018-03-18 00:00:00 CATY VILLASENOR [facility] MEASURE OF CARDIAC SAMPL & PRESSURE, L HEART, PERC APPROACH 2018-03-16 00:00:00 MICHAEL MINA [facility] FLUOROSCOPY OF MULT COR ART USING L OSM CONTRAST 2018-03-16 00:00:00 MICHAEL MINA [facility] FLUOROSCOPY OF LEFT HEART USING LOW OSMOLAR CONTRAST 2018-03 00:00:00 MICHAEL MINA [facility] CT of abdomen and pelvis without contrast 2018-02-24 00:00:00 BASSAM FUNEZ [facility] Plan of Care Planned Activity Planned Date Details Comments Source Future Scheduled Test 2020-03-01 00:00:00 INFLUENZA VACCINE [code = INFLUENZA VACCINE] [facility] Future Scheduled Test 1997 00:00:00 65+ PNEUMOCOCCAL V ACCINE (1 of 2 - PCV13) [code = 65+ PNEUMOCOCCAL VACCINE (1 of 2 - PCV13)] [facility] Future Scheduled Test 1982 00:00:00 SHINGLES VACCINES (#1) [code = SHINGLES VACCINES (#1)] [facility] Encounters Start Date/Time End Date/Time Encounter Type Admission Type Attendi [facility] Care Department Encounter ID Source 2018-12-13 07:16:00 2018-12-13 11:45:00 Departed Emergency Room 1 ALEXANRDA WRIGHT [facility] [id number] [facility] 2018-10-23 15:17:00 2018-10-23 21:21:00 Departed Emergency Room 1 DEVEN HOLCOMB [facility] [id number] [facility] 2018-03-16 14:46:00 2018-03-24 17:24:00 Discharged Inpatient 1 ANGELIA GUZMANROMIE [facility] [id number] [facility] 2018-02-24 11:18:00 2018-02-24 11:18:00 Registered Clinic 3 BASSAM LANDRY [facility] [id number] [facility] 2018-02-19 00:01:00 2018-02-19 00:38:00 Departed Emergency Room [facility] [id number] [facility] 2017-09-08 14:03:00 2017-09-08 14:03:00 Registered Clinic EL GUZMAN, NEIL [facility] [id number] [facility] 2017-05-03 23:29:00 2017-05-04 02:56:00 Departed Emergency Room ER FRANKIE OSORIO [facility] [id number] [facility] Results Test Description Test Time Test Comments Results Result Comments Source CHEST SINGLE (PORTABLE) 2019-12-28 16:17:00 [place] [address] Patient Name: EVERETT MONROE JR MR #: [id number] : 1930 Age/Sex: 89/M Req #: [id number] Adm Physician: Ordered by: SHYLA IBRAHIM FINANCE MGR Report #: [id number] Location: ER Room/Bed: Procedure: [id number] DX/CHEST SINGLE (PORTABLE) Exam Date: Exam Time: REPORT STATUS: Signed EXAMINATION: CHEST SINGLE (PORTABLE) INDICATION: Weakness, fall COMPARISON: Chest radiograph of 12/13/2018 FINDINGS: LINES/TUBES:Left chest AICD. LUNGS:The lungs are moderately inflated. New airspace opacities in the left mid and lower lung zones. PLEURA:No pleural effusion or pneumothorax. MEDIASTINUM:The cardiomediastinal silhouette appears unchanged in size and shape. Atherosclerotic calcifications of the thoracic aorta. BONES/SOFT TISSUES:No acute osseous injury. ABDOMEN:No free air under the diaphragm. IMPRESSION: New airspace opacities in the left mid and lower lung zones, concerning for aspiration or pneumonia in the proper clinical setting. Signed by: Medhat Cardenas MD on 12/28/2019 4:18 PM Dictated By: MEDHAT CARDENAS MD [id number] Transcribed By: ELLIOT on 12/28/198 COPY TO: SYHLA IBRAHIM FINANCE MGR CT BRAIN WO 2019-12-28 16:07:[address], [place], [place] [address] Patient Name: EVERETT MONROE JR MR #: [id number] : 1930 Age/Sex: 89/M Req #: [id number] Adm Physician: Ordered by: SHYLA IBRAHIM NP Report #: [id number] Location: ER Room/Bed: Procedure: [id number] CT/CT BRAIN WO Exam Date: Exam Time: REPORT STATUS: Signed History: Weakness, falls Comparison studies: CT head 12/13/2018 Technique: Axial images were obtained from the skull base to the vertex. Coronal and sagittal images reconstructed from the axial data. Dose modulation, iterative reconstruction, and/or weight based adjustment of the mA/kV was utilized to reduce the radiation dose to as low as reasonably achievable. Intravenous contrast: None Findings: Scalp/skull: Nonaggressive-appearing 3.0 cm right occipitomastoid lucency with central hypodensity at the junction of the right transverse and sigmoid sinuses may be an incidental intradiploic arachnoid granulation. Extra-axial spaces: No masses. No fluid collections. Brain sulci: Moderately prominent. Ventricles: Moderate compensatory dilatation. No hydrocephalus. Parenchyma: Ill-defined confluent hypodensities in the supratentorial white matter are nonspecific but are most compatible with chronic microvascular ischemic changes. No mass, acute hemorrhage, acute or chronic cortical vascular insults. Evaluation for subcortical ischemia is limited in the context of confluent hypodense white matter changes. Sellar/suprasellar region: No abnormalities. Craniocervical junction: Patent foramen magnum. No Chiari one malformation. Incidental findings: Atherosclerotic calcifications in the carotid siphons. 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 Left intraocular lens replacement. Atherosclerotic calcifications in the carotid siphons and intradural vertebral arteries. IMPRESSION: No acute intracranial abnormalities. No changes from the prior head CT of 12/13/2018. Chronic findings: 1. Moderate generalized parenchymal volume loss. 2. Moderate to severe chronic microvascular ischemic changes. A final report was issued by Dr. Felipe at 7:25 PM on 12/28/2019. Signed by: Dr. Tahir Felipe M.D. on 12/28/2019 7:25 PM Dictated By: TAHIR FELIPE MD 24 Transcribed By: ELLIOT on 12/28/191924 COPY TO: SHYLA IBRAHIM NP CHEST 2 VIEWS 2018-12-13 09:11:00 [place] [address] Patient Name: EVERETT MONROE JR MR #: [id number] : 1930 Age/Sex: 87/M Req #: [id number] Adm Physician: Ordered by: ALEXANDRA WRIGHT MD Report #: [id number] Location: ER Room/Bed: Procedure: [id number] DX/CHEST 2 VIEWS Exam Date: 12/13/18 Exam [...] WRIGHT MD SHOULDER RIGHT COMPLETE 2018-12-13 09:09:00 [place] [address] Patient Name: EVERETT MONROE JR MR #: [id number] : 1930 Age/Sex: 87/M Req #: [id number] Adm Physician: Ordered by: ALEXANDRA WRIGHT MD Report #: [id number] Location: ER Room/Bed: Procedure: [id number] DX/SHOULDER RIGHT COMPLETE Exam Date: 12/13/18 Exam [...] MD CT CERVICAL SPINE WO 2018-12-13 08:56:00 [place] [address] Patient Name: EVERETT MONROE JR MR #: [id number] : 1930 Age/Sex: 87/M Req #: [id number] Adm Physician: Ordered by: ALEXANDRA WRIGHT MD Report #: [id number] Location: ER Room/Bed: Procedure: [id number] CT/CT CERVICAL SPINE WO Exam Date: 12/13/18 [...] SÁNCHEZ MD 1 Transcribed By: ELLIOT on 12/13/18901 COPY TO: ALEXANDRA WRIGHT MD CT BRAIN WO 2018-12-13 08:52:00 [place] [address] Patient Name: EVERETT MONROE JR MR #: [id number] : 1930 Age/Sex: 87/M Req #: [id number] Adm Physician: Ordered by: ALEXANDRA WRIGHT MD Report #: [id number] Location: ER Room/Bed: Procedure: [id number] CT/CT BRAIN WO Exam Date: 12/13/18 Exam [...] WRIGHT MD CT ABDOMEN/PELVIS WOW 2018-10-23 20:22:00 [place] [address] Patient Name: EVERETT MONROE JR MR #: [id number] : 1930 Age/Sex: 87/M Req #: [id number] Adm Physician: Ordered by: DEVEN HOLCOMB MD Report #: [id number] Location: ER Room/Bed: Procedure: [id number] CT/CT ABDOMEN/PELVIS WOW Exam Date: 10/23/18 Exam Time: 1937 REPORT STATUS: Signed EXAM: CT Abdomen and Pelvis WITHOUT and WITH contrast INDICATION: Bleeding from penis hematuria protocol [id number] Y COMPARISON: None. TECHNIQUE: Abdomen and [...] WBC (test code = 5821-4) NONE 0-5 [facility] [id number] 18:01:00* Test Item Value Reference Range Interpretation Comments Urine RBC (test code = 39085-3) 11-20 0-5 H [facility] Kcwgkano1985-19-04 18:01:00* Test Item Value Reference Range Interpretation Comments Urine Bacteria (test code = 77793-7) MODERATE NONE H [facility] Epithelial Amuft2155-79-35 18:01:00 * Test Item Value Reference Range Interpretation Comments Urine Epithelial Cells (test code = 48982-9) FEW NONE [facility] Crifb6635-76-62 18:01:00* Test Item Value Reference Range Interpretation Comments Urine Mucus (test code = 8247-9) FEW RARE H [facility] [id number] 18:01:00* Test Item Value Reference Range Interpretation Comments Urine WBC (test code = 5821-4) NONE 0-5 [facility] [id number] 18:01:00* Test Item Value Reference Range Interpretation Comments Urine RBC (test code = 41739-1) 11-20 0-5 H [facility] Rtebusre3297-73-15 18:01:00* Test Item Value Reference Range Interpretation Comments Urine Bacteria (test code = 82202-4) MODERATE NONE H [facility] Epithelial Hsfvg9940-25-36 18:01:00 * Test Item Value Reference Range Interpretation Comments Urine Epithelial Cells (test code = 68814-0) FEW NONE [facility] Ljijr2271-80-13 18:01:00* Test Item Value Reference Range Interpretation Comments Urine Mucus (test code = 8247-9) FEW RARE H [facility] Flcjj9135-19-13 17:51:00* Test Item Value Reference Range Interpretation Comments Urine Color (test code = 5778-6) YELLOW YELLOW [facility] Plmcngr0067-54-77 17:51:00* Test Item Value Reference Range Interpretation Comments Urine Clarity (test code = 67265-1) SL CLOUDY CLEAR H [facility] Specific Ctrscpc0794-51-18 17:51:00 * Test Item Value Reference Range Interpretation Comments Urine Specific [place] (test code = 5811-5) 1.015 1.010-1.02 5 [facility] [id number] 17:51:00* Test Item Value Reference Range Interpretation Comments Urine pH (test code = 20607-0) 7 5-7 [facility] Leukocyte Mqasbyer3205-29-42 17:51:00* Test Item Value Reference Range Interpretation Comments Urine Leukocyte Esterase (test code = 5799-2) NEGATIVE NEGATIVE [facility] Navpuza2070-97-36 17:51:00* Test Item Value Reference Range Interpretation Comments Urine Nitrite (test code = 46556-6) NEGATIVE NEGATIVE [facility] Tyjypuc8413-69-92 17:51:00* Test Item Value Reference Range Interpretation Comments Urine Protein (test code = 5804-0) TRACE NEGATIVE H [facility] Glucose (UA)2018-10-23 17:51:00* Test Item Value Reference Range Interpretation Comments Urine Glucose (UA) (test code = 2349-9) NEGATIVE NEGATIVE [facility] Tsphqfr1704-23-83 17:51:00* Test Item Value Reference Range Interpretation Comments Urine Ketones (test code = 43856-3) NEGATIVE NEGATIVE [facility] Vmuxdarbvwgh2113-80-38 17:51:00* Test Item Value Reference Range Interpretation Comments Urine Urobilinogen (test code = 25690-5) 0.2 0.2-1 [facility] Mnigbpghl5649-59-15 17:51:00* Test Item Value Reference Range Interpretation Comments Urine Bilirubin (test code = 1978-6) NEGATIVE NEGATIVE [facility] Yjxqg8581-30-10 17:51:00* Test Item Value Reference Range Interpretation Comments Urine Blood (test code = 53465-1) 1+ NEGATIVE H [facility] Lgskb9645-08-03 17:51:00* Test Item Value Reference Range Interpretation Comments Urine Color (test code = 5778-6) YELLOW YELLOW [facility] Bcxkngt3831-93-23 17:51:00* Test Item Value Reference Range Interpretation Comments Urine Clarity (test code = 45590-9) SL CLOUDY CLEAR H [facility] Specific Esbftry2093-81-59 17:51:00 * Test Item Value Reference Range Interpretation Comments Urine Specific [place] (test code = 5811-5) 1.015 1.010-1.02 5 [facility] [id number] 17:51:00* Test Item Value Reference Range Interpretation Comments Urine pH (test code = 04231-2) 7 5-7 [facility] Leukocyte Hhmjpzfj2650-33-77 17:51:00* Test Item Value Reference Range Interpretation Comments Urine Leukocyte Esterase (test code = 5799-2) NEGATIVE NEGATIVE [facility] Udhvyny6123-86-61 17:51:00* Test Item Value Reference Range Interpretation Comments Urine Nitrite (test code = 28399-7) NEGATIVE NEGATIVE [facility] Diflrxp7261-70-15 17:51:00* Test Item Value Reference Range Interpretation Comments Urine Protein (test code = 5804-0) TRACE NEGATIVE H [facility] Glucose (UA)2018-10-23 17:51:00* Test Item Value Reference Range Interpretation Comments Urine Glucose (UA) (test code = 2349-9) NEGATIVE NEGATIVE [facility] Ldclbwx8314-74-37 17:51:00* Test Item Value Reference Range Interpretation Comments Urine Ketones (test code = 53847-9) NEGATIVE NEGATIVE [facility] Fsmmwigxceki5277-60-50 17:51:00* Test Item Value Reference Range Interpretation Comments Urine Urobilinogen (test code = 03824-7) 0.2 0.2-1 [facility] Ucqgwzxib1512-20-25 17:51:00* Test Item Value Reference Range Interpretation Comments Urine Bilirubin (test code = 1978-6) NEGATIVE NEGATIVE [facility] Wlsdv4057-52-88 17:51:00* Test Item Value Reference Range Interpretation Comments Urine Blood (test code = 81992-2) 1+ NEGATIVE [facility] Vgxnz3628-47-99 17:19:00* Test Item Value Reference Range Interpretation Comments Sodium Level (test code = 2951-2) 137 136-145 [facility] Aimfz6330-73-49 17:19:00* Test Item Value Reference Range Interpretation Comments Potassium Level (test code = 2823-3) 4.5 3.5-5.1 [facility] Rock[facility]loride Dkxlo3112-67-36 17:19:00* Test Item Value Reference Range Interpretation Comments Chloride Level (test code = 2075-0) 103 98-107 [facility] RockCarbon Dioxide Acvxj8090-91-02 17:19:00* Test Item Value Reference Range Interpretation Comments Carbon Dioxide Level (test code = 2028-9) 28 22-29 [facility] RockAnion Gvs9033-72-24 17:19:00* Test Item Value Reference Range Interpretation Comments Anion Gap (test code = 28193-5) 10.5 8-16 [facility] Rock[facility] Urea Oeuzqprx6303-29-39 17:19:00* Test Item Value Reference Range Interpretation Comments Blood Urea Nitrogen (test code = 3094-0) 23 7-26 [facility] Rock[facility]inine2019-03-25 17:19:00* Test Item Value Reference Range Interpretation Comments Creatinine (test code = 2160-0) 1.16 0.72-1.25 [facility] RockBUN/Creatinine Dipsw0120-62-05 17:19:00* Test Item Value Reference Range Interpretation Comments BUN/Creatinine Ratio (test code = 3097-3) 20 6-25 [facility] RockEstimat Glomerular Filtration Rate 2018-10-23 17:19:00* Test Item Value Reference Range Interpretation Comments Estimat Glomerular Filtration Rate (test code = 090989353) 60 >60 Ranges were taken from the National Kidney Disease Education Program and the [facility] [employer] literature.Reference ranges:60 or greater: Fsxgud59-83 ( for 3 consecutive months): Chronic kidney disease 15 or less: Kidney failureBaylor [facility] & [facility] RockGlucose Jigmq8976-93-95 17:19:00* Test Item Value Reference Range Interpretation Comments Glucose Level (test code = LTX3806) 101 74-118 [facility] RockCalcium Oobfd4914-14-63 17:19:00* Test Item Value Reference Range Interpretation Comments Calcium Level (test code = 43560-1) 9.2 8.4-10.2 [facility] RockTotal Rpnqcifsu0181-43-08 17:19:00* Test Item Value Reference Range Interpretation Comments Total Bilirubin (test code = 1975-2) 0.9 0.2-1.2 [facility] RockAspartate Amino Transf (AST/SGOT) 2018-10-23 17:19:00* Test Item Value Reference Range Interpretation Comments Aspartate Amino Transf (AST/SGOT) (test code = Aspartate Amino Transf (AST/SGOT)) 21 5-34 [facility] RockAlanine Aminotransferase (ALT/SGPT) 2018-10-23 17:19:00* Test Item Value Reference Range Interpretation Comments Alanine Aminotransferase (ALT/SGPT) (test code = 1742-6) 8 0-55 [facility] RockTotal Baezmce8856-02-81 17:19:00* Test Item Value Reference Range Interpretation Comments Total Protein (test code = 2885-2) 7.5 6.5-8.1 [facility] RockAlbumin2019-03-25 17:19:00* Test Item Value Reference Range Interpretation Comments Albumin (test code = 1751-7) 3.5 3.5-5.0 [facility] RockGlobulin2019-03-25 17:19:00* Test Item Value Reference Range Interpretation Comments Globulin (test code = 28017-0) 4.0 2.3-3.5 H [facility] RockAlbumin/Globulin Xsmun0563-22-71 17:19:00 * Test Item Value Reference Range Interpretation Comments Albumin/Globulin Ratio (test code = 1759-0) 0.9 0.8-2.0 [facility] RockAlkaline Lhuvfluhehq3325-55-01 17:19:00* Test Item Value Reference Range Interpretation Comments Alkaline Phosphatase (test code = 6768-6) 134 40-150 [facility]odium Ilqnp8923-11-42 17:19:00* Test Item Value Reference Range Interpretation Comments Sodium Level (test code = 2951-2) 137 136-145 [facility] RockPotassium Gflat5084-83-53 17:19:00* Test Item Value Reference Range Interpretation Comments Potassium Level (test code = 2823-3) 4.5 3.5-5.1 [facility] RockChloride Uitnw0516-26-65 17:19:00* Test Item Value Reference Range Interpretation Comments Chloride Level (test code = 2075-0) 103 98-107 [facility] RockCarbon Dioxide Fjiqd8210-94-30 17:19:00* Test Item Value Reference Range Interpretation Comments Carbon Dioxide Level (test code = 2028-9) 28 22-29 [facility] RockAnion Kxz2724-45-30 17:19:00* Test Item Value Reference Range Interpretation Comments Anion Gap (test code = 31408-3) 10.5 8-16 [facility] RockBlood Urea Algxwohy1862-41-50 17:19:00* Test Item Value Reference Range Interpretation Comments Blood Urea Nitrogen (test code = 3094-0) 23 7-26 [facility] RockCreatinine2019-03-25 17:19:00* Test Item Value Reference Range Interpretation Comments Creatinine (test code = 2160-0) 1.16 0.72-1.25 [facility] RockBUN/Creatinine Qlrsj1097-56-56 17:19:00* Test Item Value Reference Range Interpretation Comments BUN/Creatinine Ratio (test code = 3097-3) 20 6-25 [facility] RockEstimat Glomerular Filtration Rate 2018-10-23 17:19:00* Test Item Value Reference Range Interpretation Comments Estimat Glomerular Filtration Rate (test code = 063516214) 60 >60 Ranges were taken from the National Kidney Disease Education Program and the [facility] Foundation literature.Reference ranges:60 or greater: Vlojel89-84 ( for 3 consecutive months): Chronic kidney disease 15 or less: Kidney failureBaylor Scott & [facility] – Round RockGlucose Psace7146-58-18 17:19:00* Test Item Value Reference Range Interpretation Comments Glucose Level (test code = QKK7420) 101 74-118 [facility] RockCalcium Bbqll0805-13-25 17:19:00* Test Item Value Reference Range Interpretation Comments Calcium Level (test code = 05590-1) 9.2 8.4-10.2 [facility] RockTotal Qbhwqrxsg8855-15-52 17:19:00* Test Item Value Reference Range Interpretation Comments Total Bilirubin (test code = 1975-2) 0.9 0.2-1.2 [facility] Round RockAspartate Amino Transf (AST/SGOT) 2018-10-23 17:19:00* Test Item Value Reference Range Interpretation Comments Aspartate Amino Transf (AST/SGOT) (test code = Aspartate Amino Transf (AST/SGOT)) 21 5-34 [facility] RockAlanine Aminotransferase (ALT/SGPT) 2018-10-23 17:19:00* Test Item Value Reference Range Interpretation Comments Alanine Aminotransferase (ALT/SGPT) (test code = 1742-6) 8 0-55 [facility] RockTotal Ekcmksj7695-22-87 17:19:00* Test Item Value Reference Range Interpretation Comments Total Protein (test code = 2885-2) 7.5 6.5-8.1 [facility] RockAlbumin2019-03-25 17:19:00* Test Item Value Reference Range Interpretation Comments Albumin (test code = 1751-7) 3.5 3.5-5.0 [facility] RockGlobulin2019-03-25 17:19:00* Test Item Value Reference Range Interpretation Comments Globulin (test code = 50689-9) 4.0 2.3-3.5 H [facility] RockAlbumin/Globulin Acuen0032-16-20 17:19:00 * Test Item Value Reference Range Interpretation Comments Albumin/Globulin Ratio (test code = 1759-0) 0.9 0.8-2.0 [facility] RockAlkaline Rjxfqnlljob5728-07-05 17:19:00* Test Item Value Reference Range Interpretation Comments Alkaline Phosphatase (test code = 6768-6) 134 40-150 [facility] RockWhite Blood Yqfza4732-51-87 17:14:00* Test Item Value Reference Range Interpretation Comments White Blood Count (test code = 6690-2) 7.51 4.8-10.8 [facility] RockRed Blood Yywhz2791-13-58 17:14:00* Test Item Value Reference Range Interpretation Comments Red Blood Count (test code = 789-8) 4.58 4.3-5.7 [facility] RockHemoglobin2019-03-25 17:14:00* Test Item Value Reference Range Interpretation Comments Hemoglobin (test code = 81139-8) 13.8 14.0-18.0 L [facility] RockHematocrit2019-03-25 17:14:00* Test Item Value Reference Range Interpretation Comments Hematocrit (test code = 4544-3) 42.9 38.2-49.6 [facility] RockMean Corpuscular Mdmsbi8616-28-11 17:14:00* Test Item Value Reference Range Interpretation Comments Mean Corpuscular Volume (test code = 787-2) 93.7 81-99 [facility] RockMean Corpuscular Hlcbaaasmy7940-84-51 17:14:00* Test Item Value Reference Range Interpretation Comments Mean Corpuscular Hemoglobin (test code = 785-6) 30.1 28-32 [facility] RockMean Corpuscular Hemoglobin Concent 2018-10-23 17:14:00* Test Item Value Reference Range Interpretation Comments Mean Corpuscular Hemoglobin Concent (test code = 786-4) 32.2 31-35 [facility] RockRed Cell Distribution Vyypr9846-45-08 17:14:00* Test Item Value Reference Range Interpretation Comments Red Cell Distribution Width (test code = 25518-8) 15.2 11.7 -14.4 H [facility] RockPlatelet Uobni2426-86-93 17:14:00* Test Item Value Reference Range Interpretation Comments Platelet Count (test code = 777-3) 197 140-360 [facility] RockNeutrophils (%) (Auto)2018-10-23 17:14:00 * Test Item Value Reference Range Interpretation Comments Neutrophils (%) (Auto) (test code = 37854-5) 63.8 38.7-80.0 [facility] RockLymphocytes (%) (Auto)2018-10-23 17:14:00 * Test Item Value Reference Range Interpretation Comments Lymphocytes (%) (Auto) (test code = 736-9) 12.9 18.0-39.1 L [facility] RockMonocytes (%) (Auto)2018-10-23 17:14:00* Test Item Value Reference Range Interpretation Comments Monocytes (%) (Auto) (test code = 5905-5) 13.4 4.4-11.3 H [facility] RockEosinophils (%) (Auto)2018-10-23 17:14:00 * Test Item Value Reference Range Interpretation Comments Eosinophils (%) (Auto) (test code = 713-8) 8.7 0.0-6.0 H [facility] RockBasophils (%) (Auto)2018-10-23 17:14:00* Test Item Value Reference Range Interpretation Comments Basophils (%) (Auto) (test code = 706-2) 0.9 0.0-1.0 [facility] RockIM GRANULOCYTES %2018-10-23 17:14:00* Test Item Value Reference Range Interpretation Comments IM GRANULOCYTES % (test code = IM GRANULOCYTES %) 0.3 0.0- 1.0 [facility] RockNeutrophils # (Auto)2018-10-23 17:14:00* Test Item Value Reference Range Interpretation Comments Neutrophils # (Auto) (test code = 751-8) 4.8 2.1-6.9 [facility] RockLymphocytes # (Auto)2018-10-23 17:14:00* Test Item Value Reference Range Interpretation Comments Lymphocytes # (Auto) (test code = 91805-3) 1.0 1.0-3.2 [facility] RockMonocytes # (Auto)2018-10-23 17:14:00* Test Item Value Reference Range Interpretation Comments Monocytes # (Auto) (test code = 742-7) 1.0 0.2-0.8 H [facility] RockEosinophils # (Auto)2018-10-23 17:14:00* Test Item Value Reference Range Interpretation Comments Eosinophils # (Auto) (test code = 711-2) 0.7 0.0-0.4 H [facility] RockBasophils # (Auto)2018-10-23 17:14:00* Test Item Value Reference Range Interpretation Comments Basophils # (Auto) (test code = 704-7) 0.1 0.0-0.1 [facility] RockAbsolute Immature Granulocyte (auto 2018-10-23 17:14:00* Test Item Value Reference Range Interpretation Comments Absolute Immature Granulocyte (auto (dayna t code = Absolute Immature Granulocyte (auto) 0.02 0-0.1 [facility] RockProthrombin Fiuj5968-35-35 17:14:00* Test Item Value Reference Range Interpretation Comments Prothrombin Time (test code = 5902-2) 13.3 11.9-14.5 [facility] RockProthromb Time International Ratio 2018-10-23 17:14:00* Test Item Value Reference Range Interpretation Comments Prothromb Time International Ratio (test code = 6301-6) 0.96 Oral Anticoagulant Therapy INR Values:1. Low Intensity Therapy 1.5 - 2.02 . Moderate Intensity Therapy 2.0 - 3.03. High Intensity Therapy(1) 2.5 - 3. 54. High Intensity Therapy(2) 3.0 - 4.05. Panic Value INR > 5.0 [facility] Round RockActivated Partial Thromboplast Time 2018-10-23 17:14:00* Test Item Value Reference Range Interpretation Comments Activated Partial Thromboplast Time (test code = 01484-7) 42.2 23.8-35.5 H [facility] RockWhite Blood Twzin5566-21-56 17:14:00* Test Item Value Reference Range Interpretation Comments White Blood Count (test code = 6690-2) 7.51 4.8-10.8 [facility] RockRed Blood Hgaqk2221-87-90 17:14:00* Test Item Value Reference Range Interpretation Comments Red Blood Count (test code = 789-8) 4.58 4.3-5.7 [facility] RockHemoglobin2019-03-25 17:14:00* Test Item Value Reference Range Interpretation Comments Hemoglobin (test code = 43442-4) 13.8 14.0-18.0 L [facility] RockHematocrit2019-03-25 17:14:00* Test Item Value Reference Range Interpretation Comments Hematocrit (test code = 4544-3) 42.9 38.2-49.6 [facility] RockMean Corpuscular Mtwnqn8641-36-48 17:14:00* Test Item Value Reference Range Interpretation Comments Mean Corpuscular Volume (test code = 787-2) 93.7 81-99 [facility] RockMean Corpuscular Tizqxzlqjn9867-81-89 17:14:00* Test Item Value Reference Range Interpretation Comments Mean Corpuscular Hemoglobin (test code = 785-6) 30.1 28-32 [facility] RockMean Corpuscular Hemoglobin Concent 2018-10-23 17:14:00* Test Item Value Reference Range Interpretation Comments Mean Corpuscular Hemoglobin Concent (test code = 786-4) 32.2 31-35 [facility] RockRed Cell Distribution Lrpku9188-69-68 17:14:00* Test Item Value Reference Range Interpretation Comments Red Cell Distribution Width (test code = 02157-7) 15.2 11.7 -14.4 H [facility] RockPlatelet Absnv2284-94-30 17:14:00* Test Item Value Reference Range Interpretation Comments Platelet Count (test code = 777-3) 197 140-360 [facility] RockNeutrophils (%) (Auto)2018-10-23 17:14:00 * Test Item Value Reference Range Interpretation Comments Neutrophils (%) (Auto) (test code = 09533-9) 63.8 38.7-80.0 [facility] RockLymphocytes (%) (Auto)2018-10-23 17:14:00 * Test Item Value Reference Range Interpretation Comments Lymphocytes (%) (Auto) (test code = 736-9) 12.9 18.0-39.1 L [facility] RockMonocytes (%) (Auto)2018-10-23 17:14:00* Test Item Value Reference Range Interpretation Comments Monocytes (%) (Auto) (test code = 5905-5) 13.4 4.4-11.3 H [facility] RockEosinophils (%) (Auto)2018-10-23 17:14:00 * Test Item Value Reference Range Interpretation Comments Eosinophils (%) (Auto) (test code = 713-8) 8.7 0.0-6.0 H [facility] RockBasophils (%) (Auto)2018-10-23 17:14:00* Test Item Value Reference Range Interpretation Comments Basophils (%) (Auto) (test code = 706-2) 0.9 0.0-1.0 [facility] RockIM GRANULOCYTES %2018-10-23 17:14:00* Test Item Value Reference Range Interpretation Comments IM GRANULOCYTES % (test code = IM GRANULOCYTES %) 0.3 0.0- 1.0 [facility] RockNeutrophils # (Auto)2018-10-23 17:14:00* Test Item Value Reference Range Interpretation Comments Neutrophils # (Auto) (test code = 751-8) 4.8 2.1-6.9 [facility] RockLymphocytes # (Auto)2018-10-23 17:14:00* Test Item Value Reference Range Interpretation Comments Lymphocytes # (Auto) (test code = 00251-2) 1.0 1.0-3.2 [facility] RockMonocytes # (Auto)2018-10-23 17:14:00* Test Item Value Reference Range Interpretation Comments Monocytes # (Auto) (test code = 742-7) 1.0 0.2-0.8 H [facility] RockEosinophils # (Auto)2018-10-23 17:14:00* Test Item Value Reference Range Interpretation Comments Eosinophils # (Auto) (test code = 711-2) 0.7 0.0-0.4 H [facility] RockBasophils # (Auto)2018-10-23 17:14:00* Test Item Value Reference Range Interpretation Comments Basophils # (Auto) (test code = 704-7) 0.1 0.0-0.1 [facility] Round RockAbsolute Immature Granulocyte (auto 2018-10-23 17:14:00* Test Item Value Reference Range Interpretation Comments Absolute Immature Granulocyte (auto (dayna t code = Absolute Immature Granulocyte (auto) 0.02 0-0.1 [facility] RockProthrombin Dmbj2677-40-50 17:14:00* Test Item Value Reference Range Interpretation Comments Prothrombin Time (test code = 5902-2) 13.3 11.9-14.5 [facility] Round RockProthromb Time International Ratio 2018-10-23 17:14:00* Test Item Value Reference Range Interpretation Comments Prothromb Time International Ratio (test code = 6301-6) 0.96 Oral Anticoagulant Therapy INR Values:1. Low Intensity Therapy 1.5 - 2.02 . Moderate Intensity Therapy 2.0 - 3.03. High Intensity Therapy(1) 2.5 - 3. 54. High Intensity Therapy(2) 3.0 - 4.05. Panic Value INR > 5.0 [facility] Round RockActivated Partial Thromboplast Time 2018-10-23 17:14:00* Test Item Value Reference Range Interpretation Comments Activated Partial Thromboplast Time (test code = 43508-3) 42.2 23.8-35.5 H [facility] RockCHEST SINGLE (PORTABLE)2018-03-22 18:15:00 [place] [address] Patient Name: EVERETT MONROE JR MR #: [id number] : 1930 Age/Sex: 87/M Req #: [id number] Adm Physician: NEIL GUZMAN MD Ordered by: RANDA MUÑIZ MD Report #: [id number] Location: MED/SURG2 Room/Bed: [facility] Procedure: 089 DX/CHEST SINGLE (PORTABLE) Exam Date: 03/22/18 Exam Time: 1716 REPORT STATUS: Signed PROCEDURE: CHEST SINGLE (PORTAB LE) COMPARISON: [facility], DX, CHEST 2 VIEWS, 03/18/2018, 18:2 5. [...] 03/22/181814 COPY TO: RANDA MUÑIZ MD Bedside Emlxdab8956-39-36 19:49:00* Test Item Value Reference Range Interpretation Comments Bedside Glucose (test code = 85164-1) 164 70-120 H Meter ID: [id number] Glucose 2018-03-21 19:49:00* Test Item Value Reference Range Interpretation Comments Bedside Glucose (test code = 08070-2) 164 70-120 H Meter ID: [id number] Glucose 2018-03-21 19:49:00* Test Item Value Reference Range Interpretation Comments Bedside Glucose (test code = 39710-0) 164 70-120 H Meter ID: [id number] Regional Medical Centerodium Level 2018-03-20 05:57:00* Test Item Value Reference Range Interpretation Comments Sodium Level (test code = 2951-2) 136 136-145 [facility] RockPotassium Uhkwq1993-83-48 05:57:00* Test Item Value Reference Range Interpretation Comments Potassium Level (test code = 2823-3) 3.6 3.5-5.1 [facility] RockChloride Brnov8499-10-74 05:57:00* Test Item Value Reference Range Interpretation Comments Chloride Level (test code = 2075-0) 98 98-107 [facility] Round RockCarbon Dioxide Kwcfe4378-99-25 05:57:00* Test Item Value Reference Range Interpretation Comments Carbon Dioxide Level (test code = 2028-9) 29 22-29 [facility] Round RockAnion Jcb5371-09-26 05:57:00* Test Item Value Reference Range Interpretation Comments Anion Gap (test code = 43194-8) 12.6 8-16 [facility] RockBlood Urea Phhdsnlt1721-61-57 05:57:00* Test Item Value Reference Range Interpretation Comments Blood Urea Nitrogen (test code = 3094-0) 27 7-26 H [facility] RockCreatinine2018-08-20 05:57:00* Test Item Value Reference Range Interpretation Comments Creatinine (test code = 2160-0) 1.29 0.72-1.25 H [facility] RockBUN/Creatinine Flbpg3626-46-31 05:57:00* Test Item Value Reference Range Interpretation Comments BUN/Creatinine Ratio (test code = 3097-3) 21 6-25 [facility] Round RockEstimat Glomerular Filtration Rate 2018-03-20 05:57:00* Test Item Value Reference Range Interpretation Comments Estimat Glomerular Filtration Rate (test code = 98833-9) 53 >60 L Ranges were taken from the National Kidney Disease Education Program and the [facility] Kidney Foundation literature.Reference ranges:60 or greater: Jmxwss97-57 ( for 3 consecutive months): Chronic kidney disease 15 or less: Kidney failureBaylor Scott & [facility] – Round RockGlucose Strqz8331-27-45 05:57:00* Test Item Value Reference Range Interpretation Comments Glucose Level (test code = UDQ5988) 97 74-118 [facility] Round RockCalcium Isrvo1037-77-34 05:57:00* Test Item Value Reference Range Interpretation Comments Calcium Level (test code = 21965-1) 9.0 8.4-10.2 [facility] RockProthrombin Wspg3500-75-16 05:51:00* Test Item Value Reference Range Interpretation Comments Prothrombin Time (test code = 5902-2) 14.2 11.9-14.5 [facility] Round RockProthromb Time International Ratio 2018-03-20 05:51:00* Test Item Value Reference Range Interpretation Comments Prothromb Time International Ratio (test code = 6301-6) 1.19 Oral Anticoagulant Therapy INR Values:1. Low Intensity Therapy 1.5 - 2.02 . Moderate Intensity Therapy 2.0 - 3.03. High Intensity Therapy(1) 2.5 - 3. 54. High Intensity Therapy(2) 3.0 - 4.05. Panic Value INR > 5.0 [facility] RockActivated Partial Thromboplast Time 2018-03-20 05:51:00* Test Item Value Reference Range Interpretation Comments Activated Partial Thromboplast Time (test code = 26595-9) 39.0 23.8-35.5 H [facility] RockWhite Blood Ruzyw2119-61-95 05:43:00* Test Item Value Reference Range Interpretation Comments White Blood Count (test code = 6690-2) 8.66 4.8-10.8 [facility] RockRed Blood Apdfh1474-93-28 05:43:00* Test Item Value Reference Range Interpretation Comments Red Blood Count (test code = 789-8) 4.75 4.3-5.7 [facility] RockHemoglobin2018-08-20 05:43:00* Test Item Value Reference Range Interpretation Comments Hemoglobin (test code = 44037-3) 14.6 14.0-18.0 [facility] RockHematocrit2018-08-20 05:43:00* Test Item Value Reference Range Interpretation Comments Hematocrit (test code = 4544-3) 43.2 38.2-49.6 [facility] RockMean Corpuscular Jpqgsc9546-85-50 05:43:00* Test Item Value Reference Range Interpretation Comments Mean Corpuscular Volume (test code = 787-2) 90.9 81-99 [facility] RockMean Corpuscular Ytwndumdkm9103-51-07 05:43:00* Test Item Value Reference Range Interpretation Comments Mean Corpuscular Hemoglobin (test code = 785-6) 30.7 28-32 [facility] Fallsan Corpuscular Hemoglobin Concent 2018-03-20 05:43:00* Test Item Value Reference Range Interpretation Comments Mean Corpuscular Hemoglobin Concent (test code = 786-4) 33.8 31-35 [facility] RockRed Cell Distribution Bvqzl5157-71-35 05:43:00* Test Item Value Reference Range Interpretation Comments Red Cell Distribution Width (test code = 68561-8) 14.8 11.7 -14.4 H [facility] RockPlatelet Swtjh8256-76-26 05:43:00* Test Item Value Reference Range Interpretation Comments Platelet Count (test code = 777-3) 175 140-360 [facility] RockNeutrophils (%) (Auto)2018-03-20 05:43:00 * Test Item Value Reference Range Interpretation Comments Neutrophils (%) (Auto) (test code = 87242-8) 62.1 38.7-80.0 [facility] RockLymphocytes (%) (Auto)2018-03-20 05:43:00 * Test Item Value Reference Range Interpretation Comments Lymphocytes (%) (Auto) (test code = 736-9) 14.4 18.0-39.1 L [facility] RockMonocytes (%) (Auto)2018-03-20 05:43:00* Test Item Value Reference Range Interpretation Comments Monocytes (%) (Auto) (test code = 5905-5) 17.4 4.4-11.3 H [facility] RockEosinophils (%) (Auto)2018-03-20 05:43:00 * Test Item Value Reference Range Interpretation Comments Eosinophils (%) (Auto) (test code = 713-8) 5.1 0.0-6.0 [facility] RockBasophils (%) (Auto)2018-03-20 05:43:00* Test Item Value Reference Range Interpretation Comments Basophils (%) (Auto) (test code = 706-2) 0.8 0.0-1.0 [facility] RockIM GRANULOCYTES %2018-03-20 05:43:00* Test Item Value Reference Range Interpretation Comments IM GRANULOCYTES % (test code = IM GRANULOCYTES %) 0.2 0.0- 1.0 [facility] RockNeutrophils # (Auto)2018-03-20 05:43:00* Test Item Value Reference Range Interpretation Comments Neutrophils # (Auto) (test code = 751-8) 5.4 2.1-6.9 [facility] RockLymphocytes # (Auto)2018-03-20 05:43:00* Test Item Value Reference Range Interpretation Comments Lymphocytes # (Auto) (test code = 75333-6) 1.3 1.0-3.2 [facility] RockMonocytes # (Auto)2018-03-20 05:43:00* Test Item Value Reference Range Interpretation Comments Monocytes # (Auto) (test code = 742-7) 1.5 0.2-0.8 H [facility] RockEosinophils # (Auto)2018-03-20 05:43:00* Test Item Value Reference Range Interpretation Comments Eosinophils # (Auto) (test code = 711-2) 0.4 0.0-0.4 [facility] RockBasophils # (Auto)2018-03-20 05:43:00* Test Item Value Reference Range Interpretation Comments Basophils # (Auto) (test code = 704-7) 0.1 0.0-0.1 [facility] RockAbsolute Immature Granulocyte (auto 2018-03-20 05:43:00* Test Item Value Reference Range Interpretation Comments Absolute Immature Granulocyte (auto (dayna t code = Absolute Immature Granulocyte (auto) 0.02 0-0.1 [facility] RockCHEST 2 SGJLX6720-99-80 19:12:00 [place] [address] Patient Name: EVERETT MONROE JR MR #: [id number] : 1930 Age/Sex: 87/M Req #: [id number] Adm Physician: NEIL GUZMAN MD Ordered by: CATY VILLASENOR MD Report #: [id number] Lo cation: MED/SURG2 Room/Bed: [facility] Procedure: [id number] 1 DX/CHEST 2 VIEWS Exam [...] COPY TO: CATY VILLASENOR MD Creatine Kinase EW9628-07-84 05:51:00* Test Item Value Reference Range Interpretation Comments Creatine Kinase MB (test code = 20648-4) 1.20 0-5.0 [facility] K9458-11-44 05:51:00* Test Item Value Reference Range Interpretation Comments Troponin I (test code = MUH2147) 0.023 0-0.300 [facility] RockCreatine Kinase CY1556-76-56 05:51:00* Test Item Value Reference Range Interpretation Comments Creatine Kinase MB (test code = 44194-9) 1.20 0-5.0 [place] 17731018-08-17 05:51:00* Test Item Value Reference Range Interpretation Comments Troponin I (test code = LCA4949) 0.023 0-0.300 [facility] RockCreatine Kinase KE2453-88-26 05:51:00* Test Item Value Reference Range Interpretation Comments Creatine Kinase MB (test code = 74198-6) 1.20 0-5.0 [facility] RockTroponin L9839-25-48 05:51:00* Test Item Value Reference Range Interpretation Comments Troponin I (test code = OYA6799) 0.023 0-0.300 [facility] RockCreatine Kncxzp1191-73-46 05:32:00* Test Item Value Reference Range Interpretation Comments Creatine Kinase (test code = 2157-6) 31 30-200 [facility] RockCreatine Mhdhyb8563-10-42 05:32:00* Test Item Value Reference Range Interpretation Comments Creatine Kinase (test code = 2157-6) 31 30-200 [facility] RockCreatine Gkwhbd2859-70-52 05:32:00* Test Item Value Reference Range Interpretation Comments Creatine Kinase (test code = 2157-6) 31 30-200 [facility] RockTriglycerides Vqrbl7762-53-03 05:13:00* Test Item Value Reference Range Interpretation Comments Triglycerides Level (test code = 2571-8) 33 0-149 [facility] RockCholesterol Uhrmi5838-79-06 05:13:00* Test Item Value Reference Range Interpretation Comments Cholesterol Level (test code = 2093-3) 108 0-199 Less than 200 mg/dL Low Vhpw612 - 239 mg/dL Borderline Cixm986 m g/dl and greater High Risk [facility] RockLDL Uxplzixplzj8202-28-62 05:13:00* Test Item Value Reference Range Interpretation Comments LDL Cholesterol (test code = 2089-1) 36 60-130 L [facility] RockHDL Ybwtmbjzqrw3172-23-07 05:13:00* Test Item Value Reference Range Interpretation Comments HDL Cholesterol (test code = 2085-9) 65 40-60 H [facility] RockCholesterol/HDL Bsqzq5300-77-01 05:13:00 * Test Item Value Reference Range Interpretation Comments Cholesterol/HDL Ratio (test code = 9830-1) 1.7 3.9-4.7 L [facility] RockTriglycerides Wesat1141-52-19 05:13:00* Test Item Value Reference Range Interpretation Comments Triglycerides Level (test code = 2571-8) 33 0-149 [facility] RockCholesterol Xvbiu1755-99-54 05:13:00* Test Item Value Reference Range Interpretation Comments Cholesterol Level (test code = 2093-3) 108 0-199 Less than 200 mg/dL Low Amkk192 - 239 mg/dL Borderline Rhyb424 m g/dl and greater High Risk [facility] RockLDL Cifoaiwrgqm2422-50-05 05:13:00* Test Item Value Reference Range Interpretation Comments LDL Cholesterol (test code = 2089-1) 36 60-130 L [facility] Tydatnihbme7000-35-76 05:13:00* Test Item Value Reference Range Interpretation Comments HDL Cholesterol (test code = 2085-9) 65 40-60 H [facility] RockCholesterol/HDL Ncnxq0562-66-32 05:13:00 * Test Item Value Reference Range Interpretation Comments Cholesterol/HDL Ratio (test code = 9830-1) 1.7 3.9-4.7 L [facility] RockTriglycerides Ntkgg3176-24-27 05:13:00* Test Item Value Reference Range Interpretation Comments Triglycerides Level (test code = 2571-8) 33 0-149 [facility] RockCholesterol Lgprx3437-31-26 05:13:00* Test Item Value Reference Range Interpretation Comments Cholesterol Level (test code = 2093-3) 108 0-199 Less than 200 mg/dL Low Pofp851 - 239 mg/dL Borderline Xlbz735 m g/dl and greater High Risk [facility] RockLDL Jwioxqoyaiv2737-57-63 05:13:00* Test Item Value Reference Range Interpretation Comments LDL Cholesterol (test code = 2089-1) 36 60-130 L [facility] Dhahwfatquu0055-07-28 05:13:00* Test Item Value Reference Range Interpretation Comments HDL Cholesterol (test code = 2085-9) 65 40-60 H [facility] RockCholesterol/HDL Naxrx8731-43-88 05:13:00 * Test Item Value Reference Range Interpretation Comments Cholesterol/HDL Ratio (test code = 9830-1) 1.7 3.9-4.7 L [facility] RockUrine AHT7173-54-72 08:57:00* Test Item Value Reference Range Interpretation Comments Urine WBC (test code = 5821-4) 0-5 0-5 [facility] RockUrine ZPI1283-91-91 08:57:00* Test Item Value Reference Range Interpretation Comments Urine RBC (test code = 44686-6) 6-10 0-5 H [facility] RockUrine Xyqoxafj2062-42-08 08:57:00* Test Item Value Reference Range Interpretation Comments Urine Bacteria (test code = 93496-1) RARE NONE [facility] RockUrine Epithelial Aqzno6627-97-07 08:57:00 * Test Item Value Reference Range Interpretation Comments Urine Epithelial Cells (test code = 12605-0) RARE NONE [facility] RockUrine Wnwiy7245-42-89 08:43:00* Test Item Value Reference Range Interpretation Comments Urine Color (test code = 5778-6) YELLOW YELLOW [facility] RockUrine Uzqtrbq6157-33-64 08:43:00* Test Item Value Reference Range Interpretation Comments Urine Clarity (test code = 90889-7) CLEAR CLEAR [facility] RockUrine Specific Axwxhen9463-07-43 08:43:00 * Test Item Value Reference Range Interpretation Comments Urine Specific [place] (test code = 5811-5) 1.010 1.010-1.02 5 [facility] RockUrine bO0896-72-66 08:43:00* Test Item Value Reference Range Interpretation Comments Urine pH (test code = 66370-8) 6 5-7 [facility] RockUrine Leukocyte Jrxgaerh6225-52-07 08:43:00* Test Item Value Reference Range Interpretation Comments Urine Leukocyte Esterase (test code = 5799-2) NEGATIVE NEGATIVE [facility] RockUrine Wmhkjps0473-20-92 08:43:00* Test Item Value Reference Range Interpretation Comments Urine Nitrite (test code = 47565-7) NEGATIVE NEGATIVE [facility] RockUrine Kquakti6880-57-10 08:43:00* Test Item Value Reference Range Interpretation Comments Urine Protein (test code = 5804-0) NEGATIVE NEGATIVE [facility] RockUrine Glucose (UA)2018-03-16 08:43:00* Test Item Value Reference Range Interpretation Comments Urine Glucose (UA) (test code = 2349-9) NEGATIVE NEGATIVE [facility] RockUrine Ivzuatq2935-25-72 08:43:00* Test Item Value Reference Range Interpretation Comments Urine Ketones (test code = 57868-5) NEGATIVE NEGATIVE [facility] RockUrine Dukhypzndegp2824-09-70 08:43:00* Test Item Value Reference Range Interpretation Comments Urine Urobilinogen (test code = 00580-4) 0.2 0.2-1 [facility] RockUrine Aftckczbh4447-92-54 08:43:00* Test Item Value Reference Range Interpretation Comments Urine Bilirubin (test code = 1978-6) NEGATIVE NEGATIVE [facility] RockUrine Fwktg9411-88-33 08:43:00* Test Item Value Reference Range Interpretation Comments Urine Blood (test code = 35386-3) TRACE NEGATIVE H [facility] RockTotal Voxjcefyg0719-51-49 08:16:00* Test Item Value Reference Range Interpretation Comments Total Bilirubin (test code = 1975-2) 1.4 0.2-1.2 H [facility] RockAspartate Amino Transf (AST/SGOT) 2018-03-16 08:16:00* Test Item Value Reference Range Interpretation Comments Aspartate Amino Transf (AST/SGOT) (test code = Aspartate Amino Transf (AST/SGOT)) 18 5-34 [facility] RockAlanine Aminotransferase (ALT/SGPT) 2018-03-16 08:16:00* Test Item Value Reference Range Interpretation Comments Alanine Aminotransferase (ALT/SGPT) (test code = 1742-6) 7 0-55 [facility] RockTotal Xccdips6967-47-00 08:16:00* Test Item Value Reference Range Interpretation Comments Total Protein (test code = 2885-2) 7.2 6.5-8.1 [facility] RockAlbumin2018-08-16 08:16:00* Test Item Value Reference Range Interpretation Comments Albumin (test code = 1751-7) 3.7 3.5-5.0 [facility] RockGlobulin2018-08-16 08:16:00* Test Item Value Reference Range Interpretation Comments Globulin (test code = 49420-5) 3.5 2.3-3.5 [facility] RockAlbumin/Globulin Owepd1288-75-47 08:16:00 * Test Item Value Reference Range Interpretation Comments Albumin/Globulin Ratio (test code = 1759-0) 1.1 0.8-2.0 [facility] RockAlkaline Trtlxqbvsbn9217-44-27 08:16:00* Test Item Value Reference Range Interpretation Comments Alkaline Phosphatase (test code = 6768-6) 118 40-150 [facility] RockCHEST SINGLE (PORTABLE)2018-03-16 08:11:00 [facility] [address] [place] [address] Patient Name: EVERETT MONROE JR MR #: [id number] : 1930 Age/Sex: 87/M Req #: [id number] Adm Physician: Ordered by: ALINA VIDAL MD Report #: [id number] Location: ER Room/Bed: Procedure: [id number] DX/CHEST SINGLE (PORTABLE ) Exam Date: 03/16/18 Exam Time: 0750 REPORT S TATUS: Signed PROCEDURE: CHEST SINGLE (PORTABLE) COMPARISON: Patients [facility], DX, CHEST SINGLE (PORTABLE), 01/06/2017, 5:33. INDICATIONS: [...] COPY TO: ALINA VIDAL MD CT ABDOMEN/PELVIS VU5316-80-71 13:42:00 [place] [address] Patient Name: EVERETT MONROE JR MR #: [id number] : 1930 Age/Sex: 87/M Req #: [id number] Adm Physician: Ordered by: BASSAM LANDRY MD Report #: [id number] Location: CT Room /Bed: Procedure: [id number] CT/CT ABDOMEN/PELVIS WO E xam Date: 02/24/18 [...] Comments Creatine Kinase MB (test code = 66940-7) 1.30 0.00-5.00 [facility] RockTroponin S8352-93-82 00:58:00* Test Item Value Reference Range Interpretation Comments Troponin I (test code = UEB3721) 0.012 0-0.300 [facility] Nxydf1658-87-45 00:50:00* Test Item Value Reference Range Interpretation Comments Sodium Level (test code = 2951-2) 140 136-145 [facility] RockPotassium Ijfdv6812-29-57 00:50:00* Test Item Value Reference Range Interpretation Comments Potassium Level (test code = 2823-3) 4.3 3.5-5.1 [facility] RockChloride Ervhv2188-00-62 00:50:00* Test Item Value Reference Range Interpretation Comments Chloride Level (test code = 2075-0) 104 98-107 [facility] RockCarbon Dioxide Advmo4179-98-23 00:50:00* Test Item Value Reference Range Interpretation Comments Carbon Dioxide Level (test code = 2028-9) 27 22-29 [facility] Round RockAnion Fse4832-11-03 00:50:00* Test Item Value Reference Range Interpretation Comments Anion Gap (test code = 23158-6) 13.3 8-16 [facility] RockBlood Urea Bbvrulgd9310-90-85 00:50:00* Test Item Value Reference Range Interpretation Comments Blood Urea Nitrogen (test code = 3094-0) 28 7-26 H [facility] RockCreatinine2017-10-04 00:50:00* Test Item Value Reference Range Interpretation Comments Creatinine (test code = 2160-0) 1.36 0.72-1.25 H [facility] RockBUN/Creatinine Tocdz5161-03-01 00:50:00* Test Item Value Reference Range Interpretation Comments BUN/Creatinine Ratio (test code = 3097-3) 21 6-25 [facility] Round RockEstimat Glomerular Filtration Rate 2017-05-04 00:50:00* Test Item Value Reference Range Interpretation Comments Estimat Glomerular Filtration Rate (test code = 40006-2) 50 >60 L Ranges were taken from the National Kidney Disease Education Program and the [facility] Kidney Foundation literature.Reference ranges:60 or greater: Ozoitn91-82 ( for 3 consecutive months): Chronic kidney disease 15 or less: Kidney failureBaylor Scott & [facility] Center – Round RockGlucose Zklki3603-70-03 00:50:00* Test Item Value Reference Range Interpretation Comments Glucose Level (test code = ERI3016) 92 74-118 [facility] Round RockCalcium Ajnno3583-24-90 00:50:00* Test Item Value Reference Range Interpretation Comments Calcium Level (test code = 54686-7) 9.4 8.4-10.2 [facility] Round RockTotal Hdbjhaerz2458-65-92 00:50:00* Test Item Value Reference Range Interpretation Comments Total Bilirubin (test code = 1975-2) 0.7 0.2-1.2 [facility] Round RockAspartate Amino Transf (AST/SGOT) 2017-05-04 00:50:00* Test Item Value Reference Range Interpretation Comments Aspartate Amino Transf (AST/SGOT) (test code = Aspartate Amino Transf (AST/SGOT)) 20 5-34 [facility] RockAlanine Aminotransferase (ALT/SGPT) 2017-05-04 00:50:00* Test Item Value Reference Range Interpretation Comments Alanine Aminotransferase (ALT/SGPT) (test code = 1742-6) -6 0-55 [facility] Round RockTotal Lmpcydk3532-70-22 00:50:00* Test Item Value Reference Range Interpretation Comments Total Protein (test code = 2885-2) 6.9 6.5-8.1 [facility] RockAlbumin2017-10-04 00:50:00* Test Item Value Reference Range Interpretation Comments Albumin (test code = 1751-7) 3.5 3.5-5.0 [facility] RockGlobulin2017-10-04 00:50:00* Test Item Value Reference Range Interpretation Comments Globulin (test code = 29738-2) 3.4 2.3-3.5 [facility] RockAlbumin/Globulin Myyyw2242-48-06 00:50:00 * Test Item Value Reference Range Interpretation Comments Albumin/Globulin Ratio (test code = 1759-0) 1.0 0.8-2.0 [facility] RockAlkaline Dblorrefwgu6426-54-62 00:50:00* Test Item Value Reference Range Interpretation Comments Alkaline Phosphatase (test code = 6768-6) 120 40-150 [facility] RockCreatine Ikxlwk8440-83-95 00:50:00* Test Item Value Reference Range Interpretation Comments Creatine Kinase (test code = 2157-6) 31 30-200 [facility] Round RockUrine ELL7670-61-61 00:42:00* Test Item Value Reference Range Interpretation Comments Urine WBC (test code = 5821-4) 6-10 0-5 H [facility] RockUrine XYN0467-69-08 00:42:00* Test Item Value Reference Range Interpretation Comments Urine RBC (test code = 60602-6) 50- 0-5 H [facility] RockUrine Jbnzhcxq9674-96-65 00:42:00* Test Item Value Reference Range Interpretation Comments Urine Bacteria (test code = 23364-8) FEW NONE [facility] RockUrine Epithelial Mqjfq5276-00-16 00:42:00 * Test Item Value Reference Range Interpretation Comments Urine Epithelial Cells (test code = 47101-6) FEW NONE [facility] Round RockProthrombin Kgoq6223-84-56 00:41:00* Test Item Value Reference Range Interpretation Comments Prothrombin Time (test code = 5902-2) 17.8 11.9-14.5 H [facility] RockProthromb Time International Ratio 2017-05-04 00:41:00* Test Item Value Reference Range Interpretation Comments Prothromb Time International Ratio (test code = 6301-6) 1.39 Oral Anticoagulant Therapy INR Values:1. Low Intensity Therapy 1.5 - 2.02 . Moderate Intensity Therapy 2.0 - 3.03. High Intensity Therapy(1) 2.5 - 3. 54. High Intensity Therapy(2) 3.0 - 4.05. Panic Value INR > 5.0 [facility] Round RockActivated Partial Thromboplast Time 2017-05-04 00:41:00* Test Item Value Reference Range Interpretation Comments Activated Partial Thromboplast Time (test code = 47732-7) 46.5 23.8-35.5 H [facility] RockUrine Vblng8119-07-73 00:31:00* Test Item Value Reference Range Interpretation Comments Urine Color (test code = 5778-6) ORANGE YELLOW H [facility] RockUrine Klzonkd8208-21-69 00:31:00* Test Item Value Reference Range Interpretation Comments Urine Clarity (test code = 14184-4) SL CLOUDY CLEAR H [facility] Round RockUrine Specific Vxosfkx4927-10-45 00:31:00 * Test Item Value Reference Range Interpretation Comments Urine Specific [place] (test code = 5811-5) 1.015 1.010-1.02 5 [facility] Round RockUrine pS0049-84-69 00:31:00* Test Item Value Reference Range Interpretation Comments Urine pH (test code = 62130-4) 7 5-7 [facility] RockUrine Leukocyte Xufkmmtb1893-68-02 00:31:00* Test Item Value Reference Range Interpretation Comments Urine Leukocyte Esterase (test code = 5799-2) 1+ NEGATIVE H [facility] RockUrine Xuoohyu9298-93-34 00:31:00* Test Item Value Reference Range Interpretation Comments Urine Nitrite (test code = 80070-0) NEGATIVE NEGATIVE [facility] RockUrine Rvehmga7872-22-56 00:31:00* Test Item Value Reference Range Interpretation Comments Urine Protein (test code = 5804-0) 2+ NEGATIVE H [facility] RockUrine Glucose (UA)2017-05-04 00:31:00* Test Item Value Reference Range Interpretation Comments Urine Glucose (UA) (test code = 2349-9) NEGATIVE NEGATIVE [facility] RockUrine Tfocdhn9577-59-35 00:31:00* Test Item Value Reference Range Interpretation Comments Urine Ketones (test code = 40672-1) TRACE NEGATIVE H [facility] RockUrine Pcjajmewwilw6981-89-11 00:31:00* Test Item Value Reference Range Interpretation Comments Urine Urobilinogen (test code = 26072-2) 0.2 0.2-1 [facility] RockUrine Bkkodvmur5169-62-11 00:31:00* Test Item Value Reference Range Interpretation Comments Urine Bilirubin (test code = 1978-6) NEGATIVE NEGATIVE [facility] RockUrine Cojqd2520-73-40 00:31:00* Test Item Value Reference Range Interpretation Comments Urine Blood (test code = 51882-2) 4+ NEGATIVE H [facility] RockWhite Blood Kdnuz3193-81-36 00:30:00* Test Item Value Reference Range Interpretation Comments White Blood Count (test code = 6690-2) 8.94 4.8-10.8 [facility] RockRed Blood Fxhnk9707-63-48 00:30:00* Test Item Value Reference Range Interpretation Comments Red Blood Count (test code = 789-8) 4.51 4.3-5.7 [facility] RockHemoglobin2017-10-04 00:30:00* Test Item Value Reference Range Interpretation Comments Hemoglobin (test code = 23546-6) 14.3 14.0-18.0 [facility] RockHematocrit2017-10-04 00:30:00* Test Item Value Reference Range Interpretation Comments Hematocrit (test code = 4544-3) 42.0 38.2-49.6 [facility] RockMean Corpuscular Mtsapv1609-06-56 00:30:00* Test Item Value Reference Range Interpretation Comments Mean Corpuscular Volume (test code = 787-2) 93.1 81-99 [facility] Round RockMean Corpuscular Jwkmhqsisr2456-61-36 00:30:00* Test Item Value Reference Range Interpretation Comments Mean Corpuscular Hemoglobin (test code = 785-6) 31.7 28-32 [facility] Round RockMean Corpuscular Hemoglobin Concent 2017-05-04 00:30:00* Test Item Value Reference Range Interpretation Comments Mean Corpuscular Hemoglobin Concent (test code = 786-4) 34.0 31-35 [facility] RockRed Cell Distribution Gkhwy5239-73-18 00:30:00* Test Item Value Reference Range Interpretation Comments Red Cell Distribution Width (test code = 35558-2) 14.5 11.7 -14.4 H [facility] Round RockPlatelet Yphpk4950-00-48 00:30:00* Test Item Value Reference Range Interpretation Comments Platelet Count (test code = 777-3) 210 140-360 [facility] RockNeutrophils (%) (Auto)2017-05-04 00:30:00 * Test Item Value Reference Range Interpretation Comments Neutrophils (%) (Auto) (test code = 95634-5) 58.8 38.7-80.0 [facility] RockLymphocytes (%) (Auto)2017-05-04 00:30:00 * Test Item Value Reference Range Interpretation Comments Lymphocytes (%) (Auto) (test code = 736-9) 17.1 18.0-39.1 L [facility] RockMonocytes (%) (Auto)2017-05-04 00:30:00* Test Item Value Reference Range Interpretation Comments Monocytes (%) (Auto) (test code = 5905-5) 14.3 4.4-11.3 H [facility] RockEosinophils (%) (Auto)2017-05-04 00:30:00 * Test Item Value Reference Range Interpretation Comments Eosinophils (%) (Auto) (test code = 713-8) 8.5 0.0-6.0 H [facility] RockBasophils (%) (Auto)2017-05-04 00:30:00* Test Item Value Reference Range Interpretation Comments Basophils (%) (Auto) (test code = 706-2) 1.0 0.0-1.0 [facility] RockIM GRANULOCYTES %2017-05-04 00:30:00* Test Item Value Reference Range Interpretation Comments IM GRANULOCYTES % (test code = IM GRANULOCYTES %) 0.3 0.0- 1.0 [facility] RockNeutrophils # (Auto)2017-05-04 00:30:00* Test Item Value Reference Range Interpretation Comments Neutrophils # (Auto) (test code = 751-8) 5.3 2.1-6.9 [facility] RockLymphocytes # (Auto)2017-05-04 00:30:00* Test Item Value Reference Range Interpretation Comments Lymphocytes # (Auto) (test code = 40614-8) 1.5 1.0-3.2 [facility] RockMonocytes # (Auto)2017-05-04 00:30:00* Test Item Value Reference Range Interpretation Comments Monocytes # (Auto) (test code = 742-7) 1.3 0.2-0.8 H [facility] RockEosinophils # (Auto)2017-05-04 00:30:00* Test Item Value Reference Range Interpretation Comments Eosinophils # (Auto) (test code = 711-2) 0.8 0.0-0.4 H [facility] RockBasophils # (Auto)2017-05-04 00:30:00* Test Item Value Reference Range Interpretation Comments Basophils # (Auto) (test code = 704-7) 0.1 0.0-0.1 [facility] Round RockAbsolute Immature Granulocyte (auto 2017-05-04 00:30:00* Test Item Value Reference Range Interpretation Comments Absolute Immature Granulocyte (auto (dayna t code = Absolute Immature Granulocyte (auto) 0.03 0-0.1 [facility] Round RockHIP LEFT 2-3 VW (+/- PELVIS) [facility] [address] [place] [address] Patient Name: EVERETT MONROE JR MR #: [id number] : 1930 Age/Sex: 86/M Req #: [id number] Adm Physician: Ordered by: NEIL GUZMAN MD Report #: [id number] [facility] m/Bed: Procedure: [id number] DX/HIP LEFT 2-3 VW (+/- P BELÉN) [...] COPY TO: NEIL GUZMAN MD CT ABDOMEN/PELVIS [place] [address] Patient Name: EVERETT MONROE JR MR #: [id number] : 1930 Age/Sex: 86/M Req #: [id number] Adm Physician: Ordered by: FRANKIE OSORIO MD Report #: [id number] Location: Room/Bed: Procedure: [id number] CT/CT ABDOMEN/PELVIS WO Exam Date: 05/04/17 Exam [...] on 05/04/17221 COPY TO: FRANKIE OSORIO MD [place] [address] Patient Name: EVERETT MONROE JR MR #: [id number] : 1930 Age/Sex: 86/M Req #: [id number] [facility] Physician: Ordered by: NEIL GUZMAN MD Report #: [id number] Location: [facility] Room/Bed: Procedure: [id number] DX/SACRUM COCCYX Exam Date: 04/19/17 Exam Time: [...]
[2019-12-28] MEDS: PIPER-TAZ 3.375 GM 50 ML IV SCH (22:00)
[2019-12-28 22:54] VITALS: BP 114/88
[2019-12-28 23:08] VITALS: BP 114/88
[2019-12-28 23:51] VITALS: BP 114/88
[2019-12-29] VITALS (7 sets, daily range): BP systolic 108–129; BP diastolic 72–88
[2019-12-29] MEDS: ALBUTEROL SULF 0.083% NEB SOLN 3 ML NEB NEB SCH ×6 (03:00→23:20)
[2019-12-29] MEDS: SODIUM CHLORIDE 0.9% 1000ML 1,000 ML IV SCH (05:09)
[2019-12-29] MEDS: PIPER-TAZ 3.375 GM 50 ML IV SCH (05:09)
[2019-12-29 05:22] LABS: BASOPHILS # (AUTO) 0.1 (0.0-0.1); BASOPHILS % 0.3 % (0.0-1.0); EOSINOPHILS % 0.1 % (0.0-6.0); HEMOGLOBIN 11.4 g/dL (14.0-18.0); LYMPHOCYTES # (AUTO) 0.7 (1.0-3.2); LYMPHOCYTES % 2.9 % (18.0-39.1); MEAN CORPUSCULAR HEMOGLOBIN 29.4 pg (28-32); MEAN CORPUSCULAR HGB CONC 32.6 g/dL (31-35); MEAN CORPUSCULAR VOLUME 90.2 fL (81-99); MONOCYTES # (AUTO) 1.7 (0.2-0.8); MONOCYTES % 7.7 % (4.4-11.3); NEUTROPHILS % 88.1 % (38.7-80.0); PLATELET COUNT 404 x10e3/uL (140-360); RED BLOOD COUNT 3.88 x10e6/uL (4.3-5.7); RED CELL DISTRIBUTION WIDTH 13.8 % (11.7-14.4)
[2019-12-29 05:36] LABS: INR 1.45; PROTHROMBIN TIME 18.6 seconds (11.9-14.5)
[2019-12-29 05:42] LABS: CREATINE KINASE 174 IU/L (30-200)
[2019-12-29 05:44] LABS: ALBUMIN 2.1 g/dL (3.5-5.0); ALBUMIN/GLOBULIN RATIO 0.4 (0.8-2.0); ANION GAP 14.6 mmol/L (8-16); CREATININE, SERUM 1.28 mg/dL (0.72-1.25); POTASSIUM 3.6 mmol/L (3.5-5.1)
--- NOTE | 2019-12-29 07:10 | NUR ---
RCD PT AT BED PT IS ALERT AND CONFUSED PT RESTING ON BED IV PATENT AND RUNNING NS 100 ML BED LOW AND LOCKED CALL LIGHT IN REACH
[2019-12-29] MEDS: IPRATROPIUM BROMIDE 0.02% 2.5 ML NEB NEB SCH ×4 (07:20→23:20)
--- NOTE | 2019-12-29 07:40 | Diagnostic Imaging Report ---
EXAMINATION: CHEST SINGLE (PORTABLE) INDICATION: Pneumonia. COMPARISON: Chest radiograph 12/28/2019. FINDINGS: LINES/TUBES:Left chest AICD with lead overlying the right ventricle. LUNGS:The lungs are moderately inflated. Persistent airspace opacities in the left lung most pronounced in the mid and lower lung zones. PLEURA: Line overlying the left lateral hemithorax likely represents skin fold. No pleural effusion or pneumothorax. MEDIASTINUM:The cardiomediastinal silhouette appears unchanged in size and shape. Atherosclerotic calcifications of the thoracic aorta. BONES/SOFT TISSUES:No acute osseous abnormality. ABDOMEN:No free air under the diaphragm. IMPRESSION: Persistent left lung opacities, compatible with aspiration or pneumonia. Signed by: Dr. Malena Shetty MD on 12/29/2019 7:37 AM
[2019-12-29] MEDS: CEFEPIME 2 GM/NS 0.9% 100 ML 100 ML IV SCH ×2 (11:45→23:01)
[2019-12-29] MEDS: VANCOMYCIN 1GM/NS 250 ML 250 ML IV SCH (11:45)
[2019-12-29] MEDS ORDERED: FUROSEMIDE INJ 10 MG/ML 4 ML VIAL IV NR (11:45)
[2019-12-29] MEDS ORDERED: NITROGLYCERIN 0.4 MG SUBL SL PRN (12:00)
--- NOTE | 2019-12-29 12:50 | History and Physical ---
CHIEF COMPLAINT: "I have been coughing more lately." HISTORY OF PRESENT ILLNESS: This is an 89-year-old white man, who presents to [facility] Emergency Room with worsening of his chronic cough over the last 4 to 5 days. The patient states at times his sputum is purulent. The adult stepdaughter states the patient has fallen at least 6 times over the last week. Family states he has become much weaker over the last week also. In the emergency room, the patient was found to have a B-type natriuretic peptide level of 274. The patient's BUN and creatinine were 28 and 1.33 respectively. The patient's white blood cell count in the emergency room was 23,300 with 88% segmented neutrophils. The patient was screened for coronavirus by PCR, but the results are still pending. Chest film performed in the emergency room revealed left-sided airspace opacities as well as moderately inflated lungs. The patient was admitted for further evaluation and treatment. REVIEW OF SYSTEMS: GENERAL: Weight is stable. He has been slightly more confused and weaker over the last week according to family members. HEENT: No headaches. No vision changes. CARDIOVASCULAR/RESPIRATORY: He has chronic cough, which has been much worse in the last 4 to 5 days. He has had purulent sputum production. No chest pain or tightness, but he has been short of breath. GI: No nausea, vomiting, diarrhea, or constipation, but he has been seems to be aspirating with liquids according to his adult stepdaughter. : He has BPH issues. NEUROMUSCULAR: He is globally weak, but denies any focal limb weakness or numbness. ALLERGIES: NO KNOWN DRUG ALLERGIES. HOME MEDICATIONS: 1. Albuterol nebulized treatments 4 times a day as needed for shortness of breath and wheezing. 2. Amantadine 100 mg daily. 3. Aspirin 81 mg daily. 4. Atorvastatin 80 mg at bedtime. 5. Carbidopa/levodopa 500/200 one q.i.d. 6. Entacapone 200 mg q.i.d. 7. Furosemide 80 mg daily. 8. Hydrocodone/acetaminophen 5/325 once daily as needed for pain. 9. Nitroglycerin 0.4 mg one sublingual every 5 minutes p.r.n. chest pain. 10. Oxybutynin 5 mg daily. 11. Potassium chloride 10 mEq daily. 12. Rivaroxaban 20 mg daily. 13. Tamsulosin 0.4 mg at bedtime. PAST SURGICAL HISTORY: 1. Coronary stent placement. 2. AICD placement. 3. Cholecystectomy. FAMILY HISTORY: Noncontributory. SOCIAL HISTORY: He is , lives with his and with his stepdaughter. Quit smoking tobacco in 2019. He is retired. PAST MEDICAL HISTORY: 1. Coronary artery disease. 2. Chronic systolic/diastolic congestive heart failure. 3. COPD. 4. Tobacco abuse (quit in 2019). 5. Parkinson disease. 6. Hypertensive heart disease. 7. Stage 3 chronic kidney disease. 8. GERD. 9. Hyperlipidemia. 10. Paroxysmal atrial fibrillation. 11. Benign prostatic hypertrophy. PHYSICAL EXAMINATION: GENERAL: He is somnolent, but arousable. He is obviously confused. History was taken from his adult stepdaughter over the phone. He appears to be dyspneic, but no obvious respiratory distress. VITAL SIGNS: Height 5 feet 9 inches, weight 154 pounds, BMI is 22. Blood pressure is 118/74, pulse is 108, respiratory rate is 24, temperature 98.5, and oxygen saturation 95% on 2 L oxygen. INTEGUMENT: Skin is warm and dry. No pallor, jaundice, or diaphoresis. HEENT: Anicteric sclerae. Moist mucous membranes. NECK: Supple. He does have evidence of jugular venous distention. CARDIOVASCULAR: Distant heart sounds. Tachycardic rate. Regular rhythm. He has an S3 gallop. LUNGS: He has crackles and rhonchi in the bilateral lung aguayo. ABDOMEN: Soft. EXTREMITIES: No edema or deformity. NEURO: Intact. DIAGNOSES: 1. Bilateral pneumonia, likely gram-negative manjit. 2. Sepsis secondary to bilateral pneumonia. 3. Cxqkn-bw-uipbpyl systolic/diastolic congestive heart failure. 4. Coronary disease. 5. Chronic obstructive pulmonary disease. 6. Tobacco abuse (quit in 2019). 7. Hypertensive heart disease. PLAN: 1. I spoke with the patient's and adult stepdaughter, and they confirmed that the patient is a do not resuscitate code status. 2. We will honor the patient's do not resuscitate code status. 3. Follow blood cultures. 4. We will change intravenous antibiotics, namely azithromycin and Zosyn to intravenous cefepime and vancomycin. 5. Continue carbidopa/levodopa and entacapone for the patient's Parkinson disease. 6. We will ask physical therapy to assess the patient since he has been having frequent falls. 7. We will ask speech therapy to assess the patient since he has been aspirating liquid slightly. 8. Follow renal function. 9. We will administer one dose of intravenous furosemide 80 mg strength since the patient appears to have acute congestive heart failure as well as pneumonia. 10. We will decrease Xarelto from 20 to 15 mg daily to adjust for his age and renal function. I spent an hour in the care of this patient. MD YAMILETH Stockton/ABHIJIT /[id number] MTDD
[2019-12-29] MEDS: NON-FORMULARY MEDICATION (Entacapone (Comtan) 200 MG) PO SCH ×3 (13:00→21:00)
[2019-12-29] MEDS: CARBIDOPA/LEVODOPA 25/100 TAB PO SCH ×3 (13:00→21:49)
--- NOTE | 2019-12-29 14:00 | NUR ---
PATIENTS SIGN THE DNAR PAPER AND WITNESSED BY 2 STAFFS
[2019-12-29 14:26] LABS: CLARITY,URINE SL CLOUDY (CLEAR); COLOR,URINE YELLOW (YELLOW)
[2019-12-29 14:27] LABS: KETONES,URINE TRACE (NEGATIVE); LEUKOCYTE ESTERASE ,URINE NEGATIVE (NEGATIVE); NITRITE,URINE NEGATIVE (NEGATIVE); PROTEIN,URINE DIPSTICK TRACE (NEGATIVE)
[2019-12-29 14:28] LABS: BILIRUBIN,URINE NEGATIVE (NEGATIVE)
[2019-12-29 14:31] LABS: CREATINE KINASE MB 2.5 ng/mL (0-5.0)
[2019-12-29 14:34] LABS: BACTERIA,URINE RARE /HPF; EPITHELIAL CELLS,URINE FEW /LPF; RBC,URINE 0-5 /HPF (0-5); WBC,URINE (MAN) 0-5 /HPF (0-5)
--- NOTE | 2019-12-29 15:48 | NUR ---
Nutrition Intervention Note RD Recommendation(s) for Physician: -Continue current diet as ordered -Texture modification per speech therapy -Ensure Enlive BID for added nutrition Plan of Care: RD following, monitoring for tolerance and adequacy, oral supplement recommendation Nutrition reason for involvement: Diagnosis (aspiration pneumonia) and Nutrition Risk Trigger (MST 7) RD Assessment (12/29/19) Pt is an 89 year old male admitted with aspiration pneumonia, AMS, weakness, and Parkinsons. Pt reports a poor appetite and has been eating 50% of his meals for the past 3 weeks. Pt also mentioned he had lost weight and used to weigh 161 lbs, but he was unsure of when he last weighed this amount. Pt currently has a weight of 154 lbs in chart. No N/V/D/C noted. Speech therapy evaluated pt and recommend a pureed diet consistency with thin liquids. Recommend Ensure Enlive BID for added nutrition as tolerated. Will continue to monitor Principal Problems/Diagnoses: aspiration pneumonia, AMS, weakness, Parkinsons PMH: COPD, Parkinson's disease, CKD, chronic systolic heart failure, CAD with prior stents, hypertension, paroxysmal atrial fibrillation. GI: soft, non-tender abdomen Skin: no pressure ulcer or wounds noted Labs: (12/28) Na 139, K 3.6, BUN 30, Cr 1.28 Meds: vancomycin, cefepime, Sinemet, Lipitor Ht: 69 inches Wt: 154 lbs BMI: 22.8 kg/m2 IBW: 160 lbs Malnutrition Evaluation (12/29/19) The patient does not meet criteria for a specified degree of malnutrition at this time. Will re-evaluate at follow-up as appropriate. Nutrition Prescription (Diet Order): Regular diet with pureed consistency Estimated Nutritional Needs: 7158-2632 calories/day (25-35 kcal/kg CBW) 70-105 g protein/day (1-1.5 g pro/kg CBW) Diet Adequacy: Not meeting calorie needs, Not meeting protein needs Tolerance: Tolerance pending Diet Education Needs Assessment: Diet education not indicated; patient on regular diet. Nutrition Care Level: moderate Nutrition Diagnosis: Inadequate energy intake related to decreased ability to consume sufficient energy secondary to decreased appetite as evidenced by pt reports eating 50% of his meals for the past 3 weeks. Goal: Patient will meet 75-100% of estimated needs by follow up Progress: N/A Interventions: -General healthful diet, texture- modified diet, Commercial beverage Monitoring/Evaluation: -Total energy intake, Total protein intake, texture modified diet, Liquid supplement, Weight change Signed: Lissette Jackson RD, LD
[2019-12-29] MEDS ORDERED: AZITHROMYCIN 500MG/NS 250 ML 250 ML IV SCH (17:00)
[2019-12-29] MEDS: RIVAROXABAN 15 MG TABLET PO SCH (17:30)
--- NOTE | 2019-12-29 18:43 | NUR ---
PT RESTING ON BED BED SIDE REPORT GIVEN TO ONCOMING NURSE
--- NOTE | 2019-12-29 20:51 | Consultation ---
DATE OF CONSULTATION: 12/29/2019 Cardiology Consultation REASON FOR CONSULTATION: Heart failure. HISTORY OF PRESENT ILLNESS: Mr. Monroe is a well known pleasant gentleman with a history of hypertension, dyslipidemia, paroxysmal atrial fibrillation, Parkinson disease, coronary artery disease with previous stents and chronic systolic heart failure, who presents with worsening shortness of breath, purulent sputum, cough, noted to have abnormal infiltrates on chest x-ray concerning for aspiration pneumonia. He has been admitted for antibiotic therapy. He denies any chest discomfort, lightheadedness or shortness of breath. REVIEW OF SYSTEMS: A 12-system review negative except for as noted above. ALLERGIES: PER EMR. PAST MEDICAL HISTORY: Hypertension, dyslipidemia, chronic systolic heart failure, paroxysmal atrial fibrillation, coronary artery disease, Parkinson disease, deconditioning and frailty. SOCIAL HISTORY: Denies active smoking, former smoker. No alcohol or drugs. . FAMILY HISTORY: Noncontributory. PHYSICAL EXAMINATION: VITAL SIGNS: Temperature 98.5, heart rate 92, respiratory rate 18, blood pressure 119/75, O2 saturation 99% on 2 L/minutes nasal cannula. GENERAL: No acute distress, alert. NECK: No JVD. CHEST: Chest with decreased breath sounds and scattered rales. CARDIOVASCULAR: Irregularly irregular rate and rhythm. Normal S1, S2. Systolic ejection murmur. No S3 or S4. ABDOMEN: Soft. EXTREMITIES: No edema. CARDIOVASCULAR MEDICATIONS: Reviewed atorvastatin 80 mg at bedtime, aspirin 81 mg daily, furosemide 80 mg IV x1 given today, Xarelto 20 mg daily will be decreased to 15 mg daily. LABORATORY DATA: Studies reviewed. BNP 274, troponin I negative x3. Sodium 134, potassium 3.6, chloride 102, bicarbonate 26, BUN 30, creatinine 1.28, glucose 91. White blood cells 22,000, hemoglobin 11, platelets 204. PTT 18, PTT 59. INR 1.4. ASSESSMENT: 1. Aspiration pneumonia . 2. Coronary artery disease with previous stents. 3. Acute on chronic systolic heart failure. 4. Hypertension. 5. Dyslipidemia. 6. Paroxysmal atrial fibrillation. 7. Chronic kidney disease. RECOMMENDATIONS: 1. BNP noted to be initially elevated. The patient is now status post furosemide IV on exam, seems to have reached an euvolemic state. Continue to monitor volume status on regular basis. 2. Transition Xarelto to 15 mg daily as creatinine is 1.28. 3. Monitor H and H. 4. Continue rest of cardiovascular medications as blood pressure allows. We will consider adding beta-salvador on this admission. Continue antibiotic therapy. 5. Consider speech evaluation. I suspect aspiration component to pneumonia. MD ASA Olmos/MODLalo /[id number]
[2019-12-29] MEDS ORDERED: ATORVASTATIN 10 MG TAB PO SCH (21:00)
[2019-12-29] MEDS: ATORVASTATIN 20 MG TAB PO SCH (21:49)
--- NOTE | 2019-12-29 21:50 | NUR ---
PATIENT IS RESTING BED IN STABLE CONDITION, NO SIGNS OF DISTRESS NOTED. NASAL CANNULA IS INTACT AND RUNNING AT 2 LITERS. PATIENT VOICES NO PAIN AT THIS TIME. BED IS IN LOWEST POSITION, BOTH SIDE RAILS ARE UP, BED ALARM IS ON, CALL LIGHT IS WITHIN EASY REACH, WILL CONTINUE TO MONITOR.
[2019-12-30] VITALS (8 sets, daily range): BP systolic 113–127; BP diastolic 66–89
[2019-12-30] MEDS: VANCOMYCIN 1GM/NS 250 ML 250 ML IV SCH ×3 (00:14→22:30)
[2019-12-30] MEDS: ALBUTEROL SULF 0.083% NEB SOLN 3 ML NEB NEB SCH ×6 (02:56→23:45)
[2019-12-30 05:53] LABS: BASOPHILS # (AUTO) 0.1 (0.0-0.1); BASOPHILS % 0.3 % (0.0-1.0); EOSINOPHILS # (AUTO) 0.1 (0.0-0.4); EOSINOPHILS % 0.3 % (0.0-6.0); HEMATOCRIT 34.1 % (38.2-49.6); HEMOGLOBIN 11.1 g/dL (14.0-18.0); LYMPHOCYTES # (AUTO) 0.6 (1.0-3.2); LYMPHOCYTES % 4.1 % (18.0-39.1); MEAN CORPUSCULAR HEMOGLOBIN 29.8 pg (28-32); MEAN CORPUSCULAR HGB CONC 32.6 g/dL (31-35); MEAN CORPUSCULAR VOLUME 91.4 fL (81-99); MONOCYTES # (AUTO) 1.4 (0.2-0.8); MONOCYTES % 8.9 % (4.4-11.3); NEUTROPHILS # (AUTO) 13.6 (2.1-6.9); NEUTROPHILS % 85.7 % (38.7-80.0); PLATELET COUNT 421 x10e3/uL (140-360); RED BLOOD COUNT 3.73 x10e6/uL (4.3-5.7); RED CELL DISTRIBUTION WIDTH 13.8 % (11.7-14.4)
[2019-12-30 06:51] LABS: ALANINE AMINOTRANSFERASE 9 IU/L (0-55); ALBUMIN 1.8 g/dL (3.5-5.0); ALBUMIN/GLOBULIN RATIO 0.4 (0.8-2.0); ALKALINE PHOSPHATASE 114 IU/L (40-150); ANION GAP 12.4 mmol/L (8-16); BLOOD UREA NITROGEN 28 mg/dL (7-26); BUN/CREATININE RATIO 27 (6-25); CALCIUM 8.3 mg/dL (8.4-10.2); CARBON DIOXIDE 26 mmol/L (22-29); CHLORIDE 104 mmol/L (98-107); CREATININE, SERUM 1.05 mg/dL (0.72-1.25); EST GLOMERULAR FILTRATION RATE > 60 ML/MIN (60-); GLUCOSE 115 mg/dL (74-118); POTASSIUM 3.4 mmol/L (3.5-5.1); SODIUM 139 mmol/L (136-145)
--- NOTE | 2019-12-30 07:05 | NUR ---
RCD PT AT BED PT IS ALERT AND CONFUSED PT RESTING ON BED IV PATENT BY SALINE FLUSH BED LOW AND LOCKED CALL LIGHT IN REACH
[2019-12-30] MEDS: IPRATROPIUM BROMIDE 0.02% 2.5 ML NEB NEB SCH ×4 (07:12→23:45)
--- NOTE | 2019-12-30 07:38 | NUR ---
PAGED DR VILLASENOR TO NOTIFY THE BLOOD CULTURE POSITIVE REPORT
--- NOTE | 2019-12-30 07:42 | NUR ---
DR VILLASENOR RETURNED THE CALL HE SAID PT ALREADY IN VANCOMYCIN ,GOT THE ORDER TO DO ECHO
[2019-12-30] MEDS ORDERED: RIVAROXABAN 20 MG TABLET PO SCH (09:00)
[2019-12-30] MEDS: ASPIRIN 81 MG CHEW TAB PO SCH (09:00)
[2019-12-30] MEDS: NON-FORMULARY MEDICATION (Entacapone (Comtan) 200 MG) PO SCH ×4 (09:00→20:41)
[2019-12-30] MEDS: TAMSULOSIN HCL 0.4 MG CAP PO SCH (09:00)
[2019-12-30] MEDS ORDERED: FUROSEMIDE INJ 10 MG/ML 2 ML VIAL IV SCH (09:00)
[2019-12-30] MEDS: AMANTADINE HCL 100 MG CAP PO SCH (09:00)
[2019-12-30] MEDS: OXYBUTYNIN CHLORIDE 5 MG TAB PO SCH (09:00)
[2019-12-30] MEDS: CARBIDOPA/LEVODOPA 25/100 TAB PO SCH ×4 (09:00→20:18)
[2019-12-30] MEDS: CEFEPIME 2 GM/NS 0.9% 100 ML 100 ML IV SCH ×2 (11:05)
[2019-12-30] MEDS ORDERED: SODIUM CHLORIDE 0.9% 250ML 250 ML ONE (11:13)
--- NOTE | 2019-12-30 12:08 | NUR ---
AC TO DIETITIAN PT NEED ENSURE ENLIVE [address] VILLASENOR GOT THE ORDER TO DO IT
[2019-12-30] MEDS ORDERED: POTASSIUM CHLORIDE 10MEQ EA PO ONE (12:15)
--- NOTE | 2019-12-30 12:38 | Progress Note ---
DATE: 12/30/2019 CHIEF COMPLAINT/HISTORY OF PRESENT ILLNESS: This is an 89-year-old white man, whose primary treating diagnosis is sepsis secondary to bilateral gram-negative manjit pneumonia. The patient is seen to be doing much better today. He is also diagnosed with acute on chronic systolic/diastolic congestive heart failure on admission. The patient has a history of paroxysmal atrial fibrillation. Today's blood work revealed a white blood cell count of 15,800 with 85% segmented neutrophils. The patient's hemoglobin is 11.1 g/dL. The patient's BUN and creatinine today are 28 and 1.05 respectively. The patient's potassium 3.4. REVIEW OF SYSTEMS: As per HPI. PHYSICAL EXAMINATION: GENERAL: He is more awake and alert today, much more lucid. He is in no distress. VITAL SIGNS: Blood pressure is 120/80, pulse 96, is irregular, respiratory rate 16, temperature 98.1, and oxygen 95% on 2 L oxygen. INTEGUMENT: Skin is warm and dry. No pallor, jaundice or diaphoresis. HEENT: Anterior sclerae. Moist mucous membranes. NECK: Supple. No evidence of jugular venous distention. CARDIOVASCULAR: Distant heart sounds. Tachycardic rate with irregular rhythm. The patient has S3 gallop. LUNGS: The patient has crackles and rhonchi in the bilateral lung aguayo. ABDOMEN: Soft. EXTREMITIES: No edema or deformity. NEUROLOGIC: Intact. DIAGNOSES: 1. Bilateral pneumonia, likely gram-negative manjit. 2. Acute on chronic systolic/diastolic congestive heart failure. 3. Sepsis secondary to bilateral pneumonia. 4. Coronary artery disease. 5. Chronic atrial fibrillation. 6. Chronic obstructive pulmonary disease. 7. Tobacco abuse (quit in 2019). 8. Hypertensive heart disease, now resolved correctly. 9. Acute renal insufficiency secondary to acute tubular necrosis, resolving. PLAN: 1. We will follow blood cultures. 2. Continue intravenous antibiotic therapy. 3. [place] patient's do not resuscitate code status. 4. Appreciate cardiology's input. 5. The patient will likely undergo modified barium swallow tomorrow since he did not pass a bedside swallow test yesterday. 6. Follow renal function. 7. We will continue oral Xarelto 15 mg daily for anticoagulation in regard to his atrial fibrillation. I spent 20 minutes in the care of the patient. MD YAMILETH Stockton/ABHIJIT /[id number] MTDFelicia
[2019-12-30] MEDS: RIVAROXABAN 15 MG TABLET PO SCH (17:00)
--- NOTE | 2019-12-30 18:39 | NUR ---
PT RESTING ON BED BED SIDE REPORT GIVEN TO ONCOMING NURSE
--- NOTE | 2019-12-30 19:04 | Progress Note ---
DATE: 12/30/2019 Cardiology Progress Note. SUBJECTIVE: Denies any chest pain or shortness of breath. OBJECTIVE: VITAL SIGNS: Temperature 98.1, heart rate 96, blood pressure 119/80, respiratory rate 16, and O2 saturation 95%. GENERAL: No acute distress, alert. NECK: No JVD. CHEST: Chest with scattered rales. CARDIOVASCULAR: Irregularly irregular rate and rhythm. Normal S1, S2. Systolic ejection murmur. No S3 or S4. ABDOMEN: Soft. Bowel sounds positive. EXTREMITIES: No edema. CARDIOVASCULAR MEDICATIONS: 1. Xarelto 15 mg daily. 2. Atorvastatin 80 mg at bedtime. 3. Aspirin 81 mg daily. 4. Vancomycin. 5. Cefepime. STUDIES: Reviewed. Sodium 139, potassium 3.4, chloride 104, bicarbonate 26, BUN 28, creatinine is 1.05, glucose 115. White blood cells 15.8, hemoglobin 11.1, platelets 421. PT 18.6, PTT 59.2, INR 1.4. AST 34, ALT 9, total bilirubin 0.8, alkaline phosphatase 114. ASSESSMENT AND PLAN: 1. An 89-year-old man with acute on chronic systolic heart failure, LVEF 30% to 35% on echocardiogram on this admission. 2. Pneumonia. 3. Hypertension. 4. Dyslipidemia. 5. Coronary artery disease. 6. Parkinson disease. RECOMMEND: 1. Continue current cardiovascular medications on direct oral anticoagulant for paroxysmal atrial fibrillation. 2. Volume status johnson, he is euvolemic on exam today. Continue current CV medications 3. Diuretics as needed. MD ASA Olmos/ABHIJIT /[id number] MTDD
--- NOTE | 2019-12-30 20:00 | NUR ---
Received change of shift report from AM nurse. Walking rounds completed.
[2019-12-30] MEDS: ATORVASTATIN 20 MG TAB PO SCH (20:18)
--- NOTE | 2019-12-30 21:32 | NUR ---
bLOOD DRAWN FOR VANCO TROUGH. SENT TO LAB.
--- NOTE | 2019-12-30 22:33 | NUR ---
Vanco trough at 11.8. Meds given as ordered by .
[2019-12-31] VITALS (7 sets, daily range): BP systolic 105–159; BP diastolic 70–94
[2019-12-31] MEDS: ALBUTEROL SULF 0.083% NEB SOLN 3 ML NEB NEB SCH ×6 (02:50→23:57)
[2019-12-31 05:31] LABS: BASOPHILS # (AUTO) 0.1 (0.0-0.1); BASOPHILS % 0.5 % (0.0-1.0); EOSINOPHILS # (AUTO) 0.1 (0.0-0.4); EOSINOPHILS % 0.7 % (0.0-6.0); HEMATOCRIT 31.7 % (38.2-49.6); HEMOGLOBIN 10.3 g/dL (14.0-18.0); LYMPHOCYTES # (AUTO) 0.9 (1.0-3.2); LYMPHOCYTES % 5.2 % (18.0-39.1); MEAN CORPUSCULAR HEMOGLOBIN 28.9 pg (28-32); MEAN CORPUSCULAR HGB CONC 32.5 g/dL (31-35); MONOCYTES # (AUTO) 1.5 (0.2-0.8); MONOCYTES % 8.9 % (4.4-11.3); NEUTROPHILS % 83.8 % (38.7-80.0); PLATELET COUNT 438 x10e3/uL (140-360); RED BLOOD COUNT 3.56 x10e6/uL (4.3-5.7); RED CELL DISTRIBUTION WIDTH 13.6 % (11.7-14.4)
[2019-12-31 05:51] LABS: ALANINE AMINOTRANSFERASE 8 IU/L (0-55); ALBUMIN 1.7 g/dL (3.5-5.0); ALBUMIN/GLOBULIN RATIO 0.4 (0.8-2.0); ALKALINE PHOSPHATASE 97 IU/L (40-150); ANION GAP 9.8 mmol/L (8-16); BLOOD UREA NITROGEN 27 mg/dL (7-26); BUN/CREATININE RATIO 28 (6-25); CALCIUM 8.4 mg/dL (8.4-10.2); CARBON DIOXIDE 26 mmol/L (22-29); CHLORIDE 105 mmol/L (98-107); CREATININE, SERUM 0.96 mg/dL (0.72-1.25); EST GLOMERULAR FILTRATION RATE > 60 ML/MIN (60-); GLUCOSE 116 mg/dL (74-118); POTASSIUM 3.8 mmol/L (3.5-5.1); SODIUM 137 mmol/L (136-145)
[2019-12-31] MEDS: IPRATROPIUM BROMIDE 0.02% 2.5 ML NEB NEB SCH ×4 (08:33→23:57)
[2019-12-31] MEDS: NON-FORMULARY MEDICATION (Entacapone (Comtan) 200 MG) PO SCH ×4 (09:00→21:00)
--- NOTE | 2019-12-31 10:02 | Progress Note ---
DATE: 12/31/2019 Cardiology Progress Note SUBJECTIVE: No new complaints. Productive cough. OBJECTIVE: VITAL SIGNS: Temperature 97.4, heart rate 92, blood pressure 134/94, respiratory rate 20, O2 saturation 100%. GENERAL: In no acute distress. Alert. NECK: No JVD. CHEST: Scattered rales and rhonchi. CARDIOVASCULAR: Regular rate and rhythm. Normal S1, S2. ABDOMEN: Soft. Bowel sounds positive. EXTREMITIES: No edema. Warm extremities. CARDIOVASCULAR MEDICATIONS: Reviewed. Atorvastatin 80 mg at bedtime, nitroglycerin p.r.n., cefepime and vancomycin antibiotics, aspirin 81 mg daily. STUDIES: Reviewed. Sodium 137, potassium 3.8, chloride 105, bicarbonate 26, BUN 27, creatinine 0.96, glucose 116. White blood cells 16.6, hemoglobin 10.3, platelets 438. INR 1.45, PT 18.6, PTT 59. AST 31 and ALT 8, alkaline phosphatase 97, and total bilirubin is 0.6. ASSESSMENT AND PLAN: 1. An 89-year-old man with aspiration pneumonia, coronary artery disease, chronic systolic heart failure with acute exacerbation, now euvolemic. 2. Hypertension. 3. Paroxysmal atrial fibrillation. 4. Parkinson disease. 5. Recommend; continue current cardiovascular medications. Continues to remain euvolemic on exam today. MD ASA Olmos/ALEKSANDARL /[id number]
[2019-12-31] MEDS: CARBIDOPA/LEVODOPA 25/100 TAB PO SCH ×4 (10:17→21:00)
[2019-12-31] MEDS: AMANTADINE HCL 100 MG CAP PO SCH (10:17)
[2019-12-31] MEDS: VANCOMYCIN 1GM/NS 250 ML 250 ML IV SCH ×2 (10:17→21:20)
[2019-12-31] MEDS: TAMSULOSIN HCL 0.4 MG CAP PO SCH (10:17)
[2019-12-31] MEDS: OXYBUTYNIN CHLORIDE 5 MG TAB PO SCH (10:17)
[2019-12-31] MEDS: ASPIRIN 81 MG CHEW TAB PO SCH (10:17)
[2019-12-31] MEDS: CEFEPIME 2 GM/NS 0.9% 100 ML 100 ML IV SCH ×2 (12:54→23:15)
--- NOTE | 2019-12-31 15:05 | Diagnostic Imaging Report ---
EXAM: MODIFIED BA. SWALLOW DATE: 12/31/2019 1:50 PM INDICATION: Aspiration pneumonia COMPARISON: None Fluoroscopy Time: 5.0 min. Reference Air Kerma (Ka, r): 16.4 mGy. FINDINGS: Modified barium was all was performed by the speech pathologist. The radiologist was not present for the examination. Provided images demonstrate the laryngeal penetration with episodes of subglottic tracheal aspiration with thin and liquids. Similar results are noted with nectar thickened liquids via straw. No aspiration with nectar thickened liquids using a cup per speech pathology report. IMPRESSION: Episodes of subglottic tracheal aspiration identified as detailed above. Please refer to speech pathology notes for further details. Signed by: Dr. Leodan Resendiz MD on 12/31/2019 3:01 PM
[2019-12-31] MEDS: RIVAROXABAN 15 MG TABLET PO SCH (16:49)
--- NOTE | 2019-12-31 20:00 | NUR ---
Received change of shift report from AM nurse. Walking rounds completed.
[2019-12-31] MEDS: ATORVASTATIN 20 MG TAB PO SCH (21:00)
[2020-01-01] VITALS (9 sets, daily range): BP systolic 119–134; BP diastolic 76–93
[2020-01-01] MEDS: CEFEPIME 2 GM/NS 0.9% 100 ML 100 ML IV SCH ×2 (01:00→11:47)
[2020-01-01] MEDS: ALBUTEROL SULF 0.083% NEB SOLN 3 ML NEB NEB SCH ×6 (03:00→23:40)
[2020-01-01] MEDS ORDERED: GUAIFENESIN/DEXTROMETHORPHAN LIQD 5 ML UDC PO PRN (06:30)
[2020-01-01] MEDS: IPRATROPIUM BROMIDE 0.02% 2.5 ML NEB NEB SCH ×3 (06:56→19:35)
[2020-01-01] MEDS: OXYBUTYNIN CHLORIDE 5 MG TAB PO SCH (08:07)
[2020-01-01] MEDS: ASPIRIN 81 MG CHEW TAB PO SCH (08:07)
[2020-01-01] MEDS: TAMSULOSIN HCL 0.4 MG CAP PO SCH (08:07)
[2020-01-01] MEDS: NON-FORMULARY MEDICATION (Entacapone (Comtan) 200 MG) PO SCH ×4 (08:08→20:30)
[2020-01-01] MEDS: VANCOMYCIN 1GM/NS 250 ML 250 ML IV SCH ×2 (08:08→23:10)
[2020-01-01] MEDS: AMANTADINE HCL 100 MG CAP PO SCH (08:08)
[2020-01-01] MEDS: CARBIDOPA/LEVODOPA 25/100 TAB PO SCH ×4 (08:08→20:30)
--- NOTE | 2020-01-01 09:30 | NUR ---
Pt. expressed no spiritual or emotional concerns at this time. Uranium Processing Supervisor provided information on how to reach piece dyeing machine tender, if needed. No need to follow at this time. BLESSING [facility] O: [phone]
--- NOTE | 2020-01-01 10:53 | Progress Note ---
DATE: 01/01/2020 Cardiology Progress Note SUBJECTIVE: Sleeping today. OBJECTIVE: VITAL SIGNS: Temperature 98 degrees, heart rate 91, blood pressure 125/88, respiratory rate 18, and O2 saturation 95%. GENERAL: In no acute distress. NECK: No JVD. CHEST: With scattered rales. CARDIOVASCULAR: Irregularly irregular rate and rhythm. Normal S1 and S2. Systolic ejection murmur. ABDOMEN: Soft. Bowel sounds positive. EXTREMITIES: No edema. CARDIOVASCULAR MEDICATIONS: Reviewed. Xarelto 15 mg daily, nitroglycerin p.r.n. 0.4 mg, atorvastatin 80 mg at bedtime, aspirin 81 mg daily, vancomycin and cefepime antibiotics. STUDIES: Reviewed. Sodium 137, potassium 3.8, chloride 105, bicarbonate 26, BUN 27, creatinine 0.96, and glucose 116. White blood cells 16.6, hemoglobin 10.3, and platelets 438. INR 1.4. AST 31, alkaline phosphatase 97, ALT 8, and total bilirubin 0.6. ASSESSMENT AND PLAN: 1. An 89-year-old man with pneumonia. 2. Wbnox-ns-yqhztgh systolic heart failure. 3. Hypertension. 4. Dyslipidemia. 5. Paroxysmal atrial fibrillation. 6. Coronary artery disease. 7. Parkinson disease. MD ASA Olmos/ABHIJIT /[id number]
--- NOTE | 2020-01-01 11:13 | Progress Note ---
DATE: ADDENDUM: ASSESSMENT AND PLAN: 1. An 89-year-old man with pneumonia, honqg-gd-upwqkmt systolic heart failure, paroxysmal atrial fibrillation, hypertension, dyslipidemia, Parkinson disease, and coronary artery disease. Recommend continue Xarelto for thromboembolic risk prevention. 2. Continue atorvastatin and aspirin from a cardiac standpoint. 3. Blood pressure currently limiting resumption of beta-salvador use. We will readdress this, and also continues to hopefully improve from his pneumonia and infection. 4. Euvolemic on exam today, diuretics p.r.n. Randy Powers MD AFV/MODL /[id number]
[2020-01-01] MEDS: RIVAROXABAN 15 MG TABLET PO SCH (18:04)
[2020-01-01] MEDS: ATORVASTATIN 20 MG TAB PO SCH (20:30)
--- NOTE | 2020-01-01 22:15 | NUR ---
VANCO TROUGH IS 17.7, MEDICATION GIVEN ORDERED.
[2020-01-02] MEDS: ALBUTEROL SULF 0.083% NEB SOLN 3 ML NEB NEB SCH ×4 (03:40→14:25)
[2020-01-02] MEDS: IPRATROPIUM BROMIDE 0.02% 2.5 ML NEB NEB SCH ×3 (03:40→11:00)
[2020-01-02 04:55] VITALS: BP 139/97
[2020-01-02 08:04] VITALS: BP 128/89
[2020-01-02] MEDS: NON-FORMULARY MEDICATION (Entacapone (Comtan) 200 MG) PO SCH ×3 (09:00→16:50)
[2020-01-02 09:04] VITALS: BP 128/89
[2020-01-02] MEDS: TAMSULOSIN HCL 0.4 MG CAP PO SCH (09:27)
[2020-01-02] MEDS: ASPIRIN 81 MG CHEW TAB PO SCH (09:28)
[2020-01-02] MEDS: AMANTADINE HCL 100 MG CAP PO SCH (09:28)
[2020-01-02] MEDS: CARBIDOPA/LEVODOPA 25/100 TAB PO SCH ×3 (09:28→16:50)
[2020-01-02] MEDS: OXYBUTYNIN CHLORIDE 5 MG TAB PO SCH (09:28)
[2020-01-02 11:47] VITALS: BP 107/73
[2020-01-02] MEDS: CEFEPIME 2 GM/NS 0.9% 100 ML 100 ML IV SCH (13:35)
--- NOTE | 2020-01-02 13:50 | NUR ---
Received order for LTAC eval. Spoke to Shirley on phone [phone]. She gave choice for [facility]. Choice letter placed in front of chart. Referral faxed to [facility] at [phone]. [facility]
[2020-01-02 15:37] VITALS: BP 132/92
--- NOTE | 2020-01-02 15:57 | NUR ---
LONG-TERM ACUTE CARE DISCHARGE INFORMATION PATIENT HAS BEEN ACCEPTED TO: [address] [place] [address] ACCEPTING PROP AND EFFECTS DESIGNER: Caro Egan ACCEPTING MD: Dr. Huffman ROOM: 902 NURSE CALL REPORT TO: [phone] THE FOLLOWING DOCUMENTS MUST ACCOMPANY PATIENT FOR TRANSFER: copy of chart, transfer MAR COPIED CHART: Chantal, community outreach coordinator MOT INFO RECEIVED FROM: Heena with [facility] ORDER/RECONCILED MED LIST: to be obtained by bedside nurse MOT completed and placed with pt's packet at nurses station. BHAVYA Lieberman and Oxana, supervisor packing room was informed of bed. Also called pt's Shirley and informed her of bed.
--- NOTE | 2020-01-02 15:57 | NUR ---
ST NOTE: Spoke with BECCA Lieberman. Pt tolerating puree texture with NTL via cup sip. Re-requested order for [facility]ES to treat dysphagia. Pt scheduled to transfer to SNF on 01/03/20, recommend [facility] in post acute care facility to treat dysphagia.
[2020-01-02] MEDS: RIVAROXABAN 15 MG TABLET PO SCH (16:47)
--- NOTE | 2020-01-02 19:17 | NUR ---
REPORT GIVEN TO ON COMING NURSE, BEDSIDE ROUNDS COMPLETE, PT STABLE AT THIS TIME.
--- NOTE | 2020-01-02 20:25 | Progress Note ---
DATE: 01/02/2020 Cardiology Progress Note SUBJECTIVE: Denies any chest pain or shortness of breath. OBJECTIVE: VITAL SIGNS: 97.6 temperature, heart rate 99, respiratory rate 16, blood pressure 132/92, O2 saturation 96% on 2 L/minute nasal cannula. GENERAL: No acute distress. NECK: No JVD. CHEST: Clear to auscultation. CARDIOVASCULAR: Irregularly irregular rate and rhythm. Normal S1 and S2. Systolic ejection murmur. ABDOMEN: Soft. Bowel sounds positive. EXTREMITIES: No edema. CARDIOVASCULAR MEDICATIONS: Reviewed. Xarelto 15 mg daily, aspirin 81 mg daily, atorvastatin 80 mg at bedtime. STUDIES: Reviewed. White blood cells 16, hemoglobin 10, platelets 438 from 12/30. Coronavirus nondetected. ASSESSMENT: 1. Pneumonia. 2. Acute on chronic systolic heart failure. 3. Coronary artery disease. 4. Parkinson's. 5. Hypertension. RECOMMENDENDATIONS: 1. On exam euvolemic today. Continue antibiotic therapy. 2. Continue Xarelto for thromboembolic risk prevention as well as aspirin and statin from a CAD standpoint. 3. Add low-dose beta-salvador to current regimen in the setting of systolic heart failure and CAD. Randy Powers MD AFV/MODLalo /[id number]
[2020-01-02] MEDS ORDERED: VANCOMYCIN 1GM/NS 250 ML 250 ML IV SCH (23:00)
[2020-01-03] MEDS ORDERED: METOPROLOL SUCCINATE 25 MG TAB XL PO SCH (09:00)
== END 2020-01-02 20:02 | DRG 871 ==
LOC: ER 15:00 → ERHOLD 20:48 → MED/SURG2 22:40
DX: A41.9 Sepsis, unspecified organism (principal); J15.6 Pneumonia due to other Gram-negative bacteria; I50.23 Acute on chronic systolic (congestive) heart failure; N17.0 Acute kidney failure with tubular necrosis; I13.0 Hypertensive heart and chronic kidney disease with heart failure and stage 1 through stage 4 chronic kidney disease, or unspecified chronic kidney disease; I25.10 Atherosclerotic heart disease of native coronary artery without angina pectoris; J44.9 Chronic obstructive pulmonary disease, unspecified; E78.5 Hyperlipidemia, unspecified; I48.0 Paroxysmal atrial fibrillation; G20 Parkinson's disease; N18.9 Chronic kidney disease, unspecified; Z79.82 Long term (current) use of aspirin; Z66 Do not resuscitate; Z95.810 Presence of automatic (implantable) cardiac defibrillator; Z95.5 Presence of coronary angioplasty implant and graft; Z90.49 Acquired absence of other specified parts of digestive tract; Z87.891 Personal history of nicotine dependence; Z91.81 History of falling
CPT/HCPCS: 36415; 70450; 71045; 74230; 80053; 80202; 81001; 82550; 82553; 83605; 83880; 84443; 84484; 85025; 85610; 85730; 87040; 87071; 87086; 87205; 87635; 93005; 93306; 94640; 94668; 97139; 99251; J0456; J1940; J2543; J3370; J7030; J7050